=== PATIENT | male | born 1965 | race American Indian/Alaskan Native ===

== ENCOUNTER → 2020-03-05 09:38 | Outpatient (BNVA) | payer OTHER, SELFPAY | PROVIDERS: PCP Internal Medicine; Referring Provider Internal Medicine; Visit Provider Urology | DX: Z76.89 Persons encountering health services in other specified circumstances (principal) ==

== ENCOUNTER → 2020-05-17 08:59 | Outpatient (BNVA) | payer OTHER, SELFPAY | PROVIDERS: PCP Internal Medicine; Referring Provider Internal Medicine; Visit Provider Internal Medicine | DX: E11.65 Type 2 diabetes mellitus with hyperglycemia (principal); E78.5 Hyperlipidemia, unspecified; I10 Essential (primary) hypertension; E55.9 Vitamin D deficiency, unspecified | CPT/HCPCS: 82947; 99212 ==

== ENCOUNTER 2020-05-17 10:44 | Outpatient (REF) | payer OTHER, SELFPAY ==
[2020-05-17 12:22] LABS: Alanine Aminotransferase 28 U/L (0-40); Albumin Level 4.8 g/dL (3.5-5.0); Alkaline Phosphatase 97 U/L (39-117); Anion Gap 17 (12-20); Aspartate Amino Transferase 18 U/L (5-37); Bilirubin Total 0.2 mg/dL (0.0-1.0); Blood Urea Nitrogen 19 mg/dL (9-16); Calcium 9.9 mg/dL (8.4-10.2); Carbon Dioxide 23 mmol/L (22-29); Chloride 107 mmol/L (96-108); Cholesterol 175 mg/dL; Estimated Glomerular Filt Rate > 60; Glucose Random 114 mg/dL (60-115); HDL Cholesterol 40 mg/dL; LDL Cholesterol Calculated 90 mg/dl; Potassium 4.5 mmol/l (3.3-5.1); Sodium 142 mmol/L (135-145); Total Protein 7.2 g/dL (6.5-8.0); Triglycerides 228 mg/dL
[2020-05-17 12:28] LABS: Estimated Average Glucose 117 mg/dL; Hemoglobin A1c % 5.7 %
[2020-05-17 13:04] LABS: Creatinine Urine 94.08 mg/dL; Microalbum/Creatinine Ratio Ur 11.6 ug/mg cr
[2020-05-18 13:32] LABS: LDL Cholesterol Direct 111 mg/dL (<100)
== END 2020-05-17 10:45 | disposition home or self-care (01) ==
LOC: HO.10HDL 10:44
PROVIDERS: Visit Provider Internal Medicine
DX: E11.65 Type 2 diabetes mellitus with hyperglycemia (principal); E55.9 Vitamin D deficiency, unspecified; R12 Heartburn; Z12.11 Encounter for screening for malignant neoplasm of colon; Z23 Encounter for immunization
CPT/HCPCS: 36415; 80053; 80061; 82043; 82306; 83036; 83721

== ENCOUNTER → 2020-06-22 12:24 | Outpatient (BNVA) | payer OTHER, SELFPAY | PROVIDERS: PCP Internal Medicine; Visit Provider Physician Assistant ==

== ENCOUNTER → 2020-08-16 09:15 | Outpatient (BNVA) | payer OTHER, SELFPAY | PROVIDERS: PCP Internal Medicine; Visit Provider Internal Medicine ==

== ENCOUNTER 2021-01-25 08:52 | Outpatient (REF) | payer OTHER, SELFPAY ==
[2021-01-25 12:17] LABS: Alanine Aminotransferase 28 U/L (0-40); Albumin Level 4.2 g/dL (3.5-5.0); Alkaline Phosphatase 106 U/L (39-117); Anion Gap 11 (12-20); Aspartate Amino Transferase 14 U/L (5-37); Bilirubin Total 0.4 mg/dL (0.0-1.0); Blood Urea Nitrogen 17 mg/dL (9-16); Calcium 8.9 mg/dL (8.4-10.2); Carbon Dioxide 25 mmol/L (22-29); Chloride 109 mmol/L (96-108); Cholesterol 131 mg/dL; Estimated Glomerular Filt Rate > 60; Glucose Random 129 mg/dL (60-115); HDL Cholesterol 36 mg/dL; LDL Cholesterol Calculated 56 mg/dl; Potassium 4.2 mmol/L (3.3-5.1); Sodium 141 mmol/L (135-145); Total Protein 6.4 g/dL (6.5-8.0); Triglycerides 195 mg/dL
[2021-01-25 12:19] LABS: Estimated Average Glucose 157 mg/dL; Hemoglobin A1c % 7.1 %
[2021-01-25 12:30] LABS: Creatinine Urine 212.36 mg/dL
[2021-01-25 12:41] LABS: Vitamin D 25-OH Total 38.5 ng/mL (>30)
[2021-01-26 12:16] LABS: LDL Cholesterol Direct 71 mg/dL (<100)
== END 2021-01-25 08:53 | disposition home or self-care (01) ==
LOC: HO.HMGCLDS 08:52
PROVIDERS: PCP Internal Medicine; Visit Provider Internal Medicine
DX: E11.65 Type 2 diabetes mellitus with hyperglycemia (principal); E55.9 Vitamin D deficiency, unspecified
CPT/HCPCS: 36415; 80053; 80061; 82043; 82306; 83036; 83721

== ENCOUNTER → 2022-05-01 09:29 | Outpatient (BNVA) | payer OTHER, SELFPAY | PROVIDERS: PCP Internal Medicine; Visit Provider Internal Medicine | DX: E11.65 Type 2 diabetes mellitus with hyperglycemia (principal); E55.9 Vitamin D deficiency, unspecified; E78.5 Hyperlipidemia, unspecified; I10 Essential (primary) hypertension | CPT/HCPCS: 82947; 83036; 99212 ==

== ENCOUNTER 2022-05-01 10:33 | Outpatient (REF) | payer OTHER, SELFPAY ==
[2022-05-01 13:45] LABS: Estimated Average Glucose 183 mg/dL
[2022-05-01 13:57] LABS: Alanine Aminotransferase 25 U/L (0-40); Albumin Level 4.5 g/dL (3.5-5.0); Alkaline Phosphatase 98 U/L (39-117); Anion Gap 13 (12-20); Aspartate Amino Transferase 20 U/L (5-37); Bilirubin Total 0.6 mg/dL (0.0-1.0); Blood Urea Nitrogen 19 mg/dL (9-16); Calcium 9.7 mg/dL (8.4-10.2); Carbon Dioxide 26 mmol/L (22-29); Chloride 104 mmol/L (96-108); Cholesterol 193 mg/dL; Estimated Glomerular Filt Rate > 60; Glucose Random 152 mg/dL (60-115); HDL Cholesterol 30 mg/dL; Potassium 3.9 mmol/L (3.3-5.1); Sodium 139 mmol/L (135-145); Total Protein 6.8 g/dL (6.5-8.0); Triglycerides 516 mg/dL
[2022-05-01 14:06] LABS: Vitamin D 25-OH Total 26.5 ng/mL (>30)
[2022-05-01 14:14] LABS: Vitamin B12 466 pg/mL (200-900)
[2022-05-01 14:34] LABS: Creatinine Urine 119.18 mg/dL; Microalbum/Creatinine Ratio Ur 18.4 ug/mg cr
[2022-05-03 06:24] LABS: LDL Cholesterol Direct 65 mg/dL (<100)
== END 2022-05-01 10:34 | disposition home or self-care (01) ==
LOC: HO.10HDL 10:33
PROVIDERS: Visit Provider Internal Medicine
DX: E11.9 Type 2 diabetes mellitus without complications (principal); E55.9 Vitamin D deficiency, unspecified
CPT/HCPCS: 36415; 80053; 80061; 82043; 82306; 82607; 83036; 83721

== ENCOUNTER 2022-06-06 09:06 | Outpatient (AMB) | payer OTHER, SELFPAY ==
--- NOTE | 2022-06-06 09:53 | MHC.PC.OV ---
Vital Signs 06/06/22 10:01 Height 5 ft 7 in Weight 183 lb BMI 28.6 BP 120/70 Blood Pressure Location Lt brachial Position Sitting Pulse 72 Pulse Source Pulse Oximeter Pulse Oximetry (%) 98 Oxygen Delivery Method Room Air Intake Visit Reasons: PT Over due for PE Intake Note: Pt is here today for his PE Allergies No Known Allergies Allergy (Verified 08/30/22 08:41) Medication List - Last Reconciled 06/06/22 by Heather Garibay MD aspirin 1 tab PO DAILY atenolol 50 mg PO DAILY atorvastatin 80 mg PO BEDTIME 30 days bisacodyl (Dulcolax (bisacodyl)) 10 mg (2 x 5 mg) PO ONCE 1 day dulaglutide (Trulicity) 0.75 mg (0.5 mL) subcut QWEEK 30 days empagliflozin (Jardiance) 10 mg PO DAILY 30 days flash glucose scanning reader (FreeStyle Rakan 2 [place]) As directed flash glucose sensor (FreeStyle Rakan 2 Sensor kit) Once every 14 days gabapentin 800 mg PO TID losartan 50 mg PO DAILY 90 days metformin 1,000 mg PO BID 90 days nicotine 1 patch transdermal Q24H 28 days omeprazole 20 mg PO DAILY pen needle, diabetic As directed pen needle, diabetic (BD Ultra-Fine Suad Pen Needle) 1 ea miscellaneous DAILY 90 days Tobacco use date assessed: 06/06/22 HPI HPI Comments History of Present Illness Details 57-year-old male with diabetes mellitus, GERD, hypertension, dyslipidemia, history of nephrolithiasis, here today for?physical exam. He is currently being followed at endocrine clinic for his diabetes mellitus, with latest hemoglobin A1c at 7.6%. He is overdue for his diabetes retinopathy screening, with referral already ordered by his social sciences instructor. He has had 1 COVID vaccine but does not want to get any further vaccinations , overdue to get his flu shot, and refuses pneumococcal vaccination.. He is also overdue for screening colonoscopy [facility] Medical History Cigarette smoker Diabetes mellitus with diabetic neuropathy Diabetes type 2, uncontrolled Heartburn HLD (hyperlipidemia) HTN (hypertension) T2DM (type 2 diabetes mellitus) Vitamin D deficiency Surgical History Hx of colonoscopy Family History Father Diabetes mellitus Mother HTN (hypertension) Social History Household Members: Children Housing: Apartment Alcohol intake: current Alcohol intake frequency: holidays/special occasions only Patient Tobacco Use Status: Current someday Tobacco user Cigarettes Per Day: 3 e-Cigarette/Vaping Use: Never Used Current occupational status: unemployed Cognitive needs: No Hearing needs: No Vision needs: No Questionnaire PHQ-9 Over the last 2 weeks, how often have you been bothered by any of the following problems? 1. Little interest or pleasure in doing things: not at all 2. Feeling down, depressed, or hopeless: not at all 3. Trouble falling or staying asleep, or sleeping too much: several days 4. Feeling tired or having little energy: several days 5. Poor appetite or overeating: several days 6. Feeling bad about yourself - or that you are a failure or have let yourself or your family down: not at all 7. Trouble concentrating on things, such as reading the newspaper or watching television: several days 8. Moving or speaking so slowly that other people could have noticed. Or the opposite - being so fidgety or restless that you have been moving around a lot more than usual: not at all 9. Thoughts that you would be better off or of hurting yourself in some way: not at all Total score: 4 Depression Screening Interpretation: Negative 14471 - PHQ-9 Billing: Yes Source: Developed by Drs. Lucio Avilez, Sofie Andrews, Vishal Evangelista and colleagues, with an educational padmini from [employer]. Thrive Questionnaire Date Thrive assessed: 06/06/22 I am a: Patient What is your living situation today?: I do not have a steady places to live Within the past 12 months, did the food you bought not last and you didn't have the money to get more?: Sometimes True Within the past 12 months, did you worry whether your food would run out before you got money to buy more?: Sometimes True Do you have trouble paying for medicines?: Yes Do you have trouble getting transportation to medical appointments?: Yes Do you have trouble paying your heating and electricity bill?: No Do you have trouble taking care of your child, family member or friend?: No Do you have trouble with day-to-day activities such as bathing, preparing meals, shopping, managing finances, etc.?: No Are you currently unemployed and looking for a job?: No Are you interested in more education?: No AUDIT C Alcohol Use Questionnaire (AUDIT-C) 1. How often do you have a drink containing alcohol?: Monthly or less 2. How many drinks containing alcohol do you have on a typical day when you are drinking?: 1 or 2 3. How often do you have six or more drinks on one occasion?: Never Total Score: 1 MIKA-7 AMB Questionnaire MIKA-7 Date MIKA - 7 assessed: 06/06/22 Feeling nervous, anxious, or on edge: 1 = Several days Not being able to stop or control worryin = Not at all Worrying too much about different things: 1 = Several days Trouble relaxin = Not at all Being so restless that it is hard to sit still: 0 = Not at all Becoming easily annoyed or irritable: 1 = Several days Feeling afraid as if something awful might happen: 1 = Several days Total MIKA-7 score (0-4 normal; 5-9 mild; 10-14 moderate; 15-21 severe): 4 Source: Developed by Drs. Lucio Avilez, Sofie Andrews, Vishal Evangelista and colleagues, with an educational padmini from [employer]. MIKA-7 Assessment Billing MIKA-7 Assessment Tool: MIKA-7 Assessment 53029 Review of Systems Const Denies body aches, Denies headache(s), Denies stops breathing during sleep, Denies weight gain and Denies weight loss Eyes Denies blurry vision and Denies diplopia ENT Denies change in voice, Denies dysphagia, Denies headache(s) and Denies hoarseness Card Denies chest pain, Denies irregular heart rhythm, Denies palpitations, Denies dyspnea and Reports other Resp Denies cough and Denies dyspnea GI Denies abdominal pain, Denies change in bowel habits, Denies dysphagia, Denies diarrhea and Denies nausea Denies hematuria, Denies genital lesions, Denies dysuria, Denies nocturia, Denies penile discharge, Denies testicular pain and Denies urinary frequency Musc Denies myalgias, Denies muscle cramps and Denies numbness Skin/Breast Denies bleeding lesions, Denies breast swelling, Denies breast pain, Denies breast mass, Denies hirsutism, Denies alopecia and Denies rash Neuro Denies headache(s), Denies numbness and Reports paresthesias (Both feet) Psych Denies anxiety and Denies depression Endo Denies cold intolerance, Denies heat intolerance, Denies polyuria, Denies palpitations and Denies other [place]/Lymph Denies easy bruising Aller/Immun Reports no additional complaints Physical exam (Primary Care) Vital Signs: Last Vital Signs Pulse 72 06/06/22 10:01 BP 120/70 06/06/22 10:01 Pulse Ox 98 06/06/22 10:01 Oxygen Delivery Method Room Air 06/06/22 10:01 BMI result Body Mass Index 28.6 Tobacco/Smoking Status: Tobacco use Status Tobacco use date assessed 06/06/22 06/06/22 09:53 Patient Tobacco Use Status Current someday Tobacco 06/06/22 09:53 e-Cigarette/Vaping Use Never Used 06/06/22 09:53 Are you ready to quit: No Tobacco cessation counseling provided: Yes PHQ-9: PHQ-9 Score PHQ-9: Total score 6 08/24/22 14:53 Depression Screening Interpretation: Negative Thrive Assessment: Date of Thrive Assessment Date Thrive assessed 06/06/22 06/06/22 10:04 Const General: cooperative, comfortable and no acute distress Nutritional Appearance: obese Orientation/consciousness: patient oriented x3 Limitations: no limitations [facility] General nose exam: Normal external nose present Mouth: Normal oral and palatal mucosa present, oropharynx normal and moist mucous membranes Eyes General: appearance normal, both eyes and all related structures Conjunctivae: conjunctivae normal Pupils: Equal, round and reactive pupils present EOM: EOMs intact bilaterally Neck Neck: Yes full ROM, Yes no lymphadenopathy and Yes supple Resp Effort & Inspection: normal respiratory effort and able to speak in complete sentences Auscultation: clear to auscultation bilaterally Cardio Rate: regular rate Rhythm: regular rhythm Heart sounds: S1 normal heart sound present and S2 normal heart sound present GI Inspection: Yes normal to inspection Palpation (GI): Soft to palpation, nontender and no masses Auscultation: normal bowel sounds General: Yes no CVA tenderness Male General Exam: Yes normal external exam Penis: normal penis and uncircumcised Meatus: meatus normal Scrotum: scrotum normal, testes descended bilaterally, no inguinal hernias, no masses and no scrotal swelling Testes: Testes normal Back/Spine/Pelvis Back: no CVA tenderness Skin General skin exam: no rashes or lesions noted Neuro General: patient oriented x3, gait normal, tone normal, moves all extremities, Normal light touch and pain sensation and no focal motor deficits Cranial nerves: Yes Equal, round and reactive pupils present Cognition (Neuro): normal cognition Gait exam (Neuro): Normal gait present Motor exam (neuro): 5/5 motor strength present throughout Extrem General: Yes full ROM, Yes no joint enlargement, Yes no pedal edema, Yes no calf tenderness and Yes normal gait Psych Appearance: grossly normal and well kempt Mental Status: mental status grossly normal Speech and movement: Normal speech and movement present Affect: normal affect Office Procedures Flu Questionnaire Does the patient have a severe egg allergy?: No Does the patient have severe life threatening allergies?: No Does the patient have a fever or illness today?: No Has the patient ever had Guillain-[place] Syndrome?: No Has the patient ever had any past reaction to a flu shot?: No Immunizations flu vacc [id number] 6mos up(PF) Performing Provider: Heather Garibay MD Administered by: Edelmira Sandoval CMA on 06/06/22 10:13 Dose Route Admin Location Lot Number Expiration Date NDC Ux Researcher 0.5 mL IM Left Deltoid [id number] 10/20/22 [id number] Kalibrr VIS Given Date VIS Provided VIS Publication Date 06/06/22 Single Vaccine 20 Eligibility Eligibility Date Funding Source Not [facility] Eligible 06/06/22 Private Results Reviewed Results Reviewed: ENTERED: 05/01/22-1034 OTHR [place]: ORDERED: CMP, Lipid Panel, Vitamin D 25-OH Test Result Flag Reference Site Sodium 139 135-145 mmol/L Potassium 3.9 3.3-5.1 mmol/L CL 104 96-108 mmol/L CO2 26 22-29 mmol/L Gap 13 12-20 BUN 19 H 9-16 mg/dL Creat 0.90 0.5-1.4 mg/dL EGFR > 60 NOTE: For -[place] individuals, multiply the result by 1.210. Chronic Kidney Disease: Estimated GFR < 60 mL/min/1.73m2 Severe Kidney Disease: Estimated GFR < 15 mL/min/1.73m2 Glucose, Random 152 H 60-115 mg/dL CA 9.7 # 8.4-10.2 mg/dL Total Bili 0.6 0.0-1.0 mg/dL AST (GOT) 20 5-37 U/L ALT (GPT) 25 0-40 U/L Protein, Total 6.8 6.5-8.0 g/dL Alb 4.5 3.5-5.0 g/dL Triglyceride 516 mg/dL Desirable Triglyceride: less than 150 mg/dL Borderline High Triglyceride 150-199 mg/dL High Triglyceride: 200-499 mg/dL Very High Triglyceride: greater than or equal to 5OO mg/dL Chol 193 mg/dL Desirable Cholesterol: less than 200 mg/dL Borderline High Cholesterol: 200-239 mg/dL High Cholesterol: greater than 239 mg/dL LDL Calculated Test not performed mg/dl Unable to calculate the LDL. The formula of Friedwald, Paulino, and Vin is only valid if the triglycerides are less than 400 mg/dl. HDL 30 mg/dL Desirable HDL: greater than 40 mg/dL Note: This HDL assay may give artificially low results in patients with liver disease. Alk Phos 98 39-117 U/L Vit D 25-OH Tot 26.5 >30 ng/mL Assessment and Plan Assessment & Plan (1) Annual visit for general adult medical examination with abnormal findings: Code(s): Z00.01 - Encounter for general adult medical examination with abnormal findings Plan: Recent lab results reviewed with patient. Recommended dental visit every 6 months and regular eye exams, for diabetes eye retinopathy screening year. Take adequate calcium in diet and vitamin-D 3 at 2000 IU per cap once a day, in addition to weight-bearing exercises to help maintain good muscle tone and weight control. Instructed to do self\testicular exam check for any mass Yearly flu vaccine given today, recommended to get shingles vaccine and pneumococcal vaccination but patient refused. Colonoscopy ordered. (2) Colon cancer screening: Code(s): Z12.11 - Encounter for screening for malignant neoplasm of colon Plan: GI consult obtained for his screening colonoscopy (3) Diabetes mellitus with diabetic neuropathy: Code(s): E11.40 - Type 2 diabetes mellitus with diabetic neuropathy, unspecified Plan: Currently on metformin, dulaglutide (4) HLD (hyperlipidemia): Code(s): E78.5 - Hyperlipidemia, unspecified Qualifiers: Hyperlipidemia type: unspecified Qualified Code(s): E78.5 - Hyperlipidemia, unspecified Plan: Reviewed recent fasting lipid profile with patient with markedly elevated triglycerides . Continue with atorvastatin 80 mg daily at bedtime , in addition to adherence to low-cholesterol diet and regular exercise, at least 30 minutes 3 to 4 times a week. Advised patient to make healthy food choices, eat more fruits, vegetables, whole grains, wild caught fish and low-fat dairy. Limit amount of meat and fried or fatty food products, as well as processed foods and fast foods. Follow-up scheduled with repeat fasting lipid panel in months. (5) HTN (hypertension): Code(s): I10 - Essential (primary) hypertension Qualifiers: Hypertension type: unspecified Qualified Code(s): I10 - Essential (primary) hypertension Plan: Blood pressure at goal of less than 130/80. Continue with current medication. Reinforced importance of following a low sodium diet, getting regular exercise, and lowering stress levels. (6) Nephrolithiasis: Code(s): N20.0 - Calculus of kidney Plan: Currently asymptomatic, being followed by Urology Orders: Orders Influenza [id number] Immunization 06/06/22 Z23 - Encounter for immunization Referrals Gastroenterology Referral Z12.11 - Encounter for screening for malignant neoplasm of colon Medications: Refilled gabapentin 800 mg PO TID 90 tabs 2RF E11.40 - Type 2 diabetes mellitus with diabetic neuropathy, unspecified Coding Level of Care Code Est Pt Prev Care 40-64y(05890) Diagnoses Annual visit for general adult medical examination with abnormal findings Z00.01 Colon cancer screening Z12.11 Diabetes mellitus with diabetic neuropathy E11.40 HLD (hyperlipidemia) E78.5 Hyperlipidemia type: unspecified HTN (hypertension) I10 Hypertension type: unspecified Nephrolithiasis N20.0 Additional Codes MIKA-7 Assessment Billing - MIKA-7 Assessment Tool: MIKA-7 Assessment 10775 ([id number])
[2022-06-06 10:01] VITALS: BP 120/70; PULSE 72; O2SAT 98; BMI 28.6
== END 2022-06-06 10:34 | disposition home or self-care (01) ==
LOC: HO.HMGC 09:06
PROVIDERS: PCP Internal Medicine; Visit Provider Internal Medicine
DX: Z00.01 Encounter for general adult medical examination with abnormal findings (principal); E11.40 Type 2 diabetes mellitus with diabetic neuropathy, unspecified; I10 Essential (primary) hypertension; Z12.11 Encounter for screening for malignant neoplasm of colon; E78.5 Hyperlipidemia, unspecified; N20.0 Calculus of kidney
CPT/HCPCS: 90471; 90686; 99396

== ENCOUNTER → 2022-08-30 08:33 | Outpatient (BNVA) | payer OTHER, SELFPAY | PROVIDERS: PCP Internal Medicine; Visit Provider Physician Assistant | DX: R12 Heartburn (principal); Z98.890 Other specified postprocedural states | CPT/HCPCS: 99212 ==

== ENCOUNTER 2023-06-27 07:48 | Outpatient (REF) | payer OTHER, SELFPAY ==
[2023-06-27 12:13] LABS: Creatinine Urine 106.73 mg/dL; Microalbum/Creatinine Ratio Ur 17.8 ug/mg cr (<30)
[2023-06-27 12:55] LABS: Anion Gap 10 (12-20)
[2023-06-27 13:02] LABS: Blood Urea Nitrogen 18 mg/dL (9-16); Calcium 9.4 mg/dL (8.4-10.2); Carbon Dioxide 29 mmol/L (22-29); Chloride 106 mmol/L (96-108); Cholesterol 136 mg/dL (<200); Estimated Glomerular Filt Rate > 60; Glucose Random 140 mg/dL (60-115); HDL Cholesterol 45 mg/dL (>40); LDL Cholesterol Calculated 67 mg/dL (<100); Potassium 4.1 mmol/L (3.3-5.1); Sodium 141 mmol/L (135-145); Triglycerides 124 mg/dL (<150)
== END 2023-06-27 07:49 | disposition home or self-care (01) ==
LOC: HO.HMGCLDS 07:48
PROVIDERS: PCP Internal Medicine; Visit Provider Internal Medicine Endocrinology, Diabetes & Metabolism
DX: E11.65 Type 2 diabetes mellitus with hyperglycemia (principal)
CPT/HCPCS: 36415; 80048; 80061; 82043; 82570

== ENCOUNTER 2023-06-27 08:05 | Outpatient (AMB) | payer OTHER, SELFPAY ==
[2023-06-27 08:20] VITALS: BP 108/66; PULSE 77; O2SAT 94; BMI 28.2
--- NOTE | 2023-06-27 08:20 | MHC.OFFWIV ---
Intake Vital Signs 06/27/23 08:20 Height 5 ft 7 in Weight 180 lb BMI 28.2 BP 108/66 Blood Pressure Location Lt brachial Position Sitting Pulse 77 Pulse Source Pulse Oximeter Pulse Oximetry (%) 94 Oxygen Delivery Method Room Air Intake Visit Reasons: EST/pain in legs/feet(lobby masked) Intake Note: Pt is here today for a walk in visit. Pt c/o R knee pain for 1 week. Patient Tobacco Use Status: Current someday Tobacco user Allergies No Known Allergies Allergy (Verified 06/27/23 08:23) Do you need a note to return to daycare/school/sports/work: No HPI HPI Comments History of Present Illness Details 57 y/o male patient who presents to walk in clinic with c/o right knee pain x 1 week. This is a chronic ongoing issue. He has been taking NSAIDs and Gabapentin with no relief. [facility] Medical History Cigarette smoker Diabetes mellitus with diabetic neuropathy Heartburn Vitamin D deficiency HLD (hyperlipidemia) HTN (hypertension) T2DM (type 2 diabetes mellitus) Diabetes type 2, uncontrolled Surgical History Hx of colonoscopy Family History Father Diabetes mellitus Mother HTN (hypertension) Social History Household Members: Children Housing: Apartment Alcohol intake: current Alcohol intake frequency: holidays/special occasions only Patient Tobacco Use Status: Current someday Tobacco user Cigarettes Per Day: 3 e-Cigarette/Vaping Use: Never Used Current occupational status: unemployed Cognitive needs: No Hearing needs: No Vision needs: No Review of Systems Const All systems reviewed & are unremarkable except as noted in HPI and below Physical Exam Vital Signs: Last Vital Signs Pulse 77 06/27/23 08:20 BP 108/66 06/27/23 08:20 Pulse Ox 94 06/27/23 08:20 Oxygen Delivery Method Room Air 06/27/23 08:20 BMI result Body Mass Index 28.2 Const Orientation/consciousness: patient oriented x3 Neuro General: patient oriented x3 and no focal motor deficits Gait exam (Neuro): Normal gait present Motor exam (neuro): 5/5 motor strength present throughout Extrem Right lower extremity: knee Details: normal to inspection and normal ROM; no tenderness, no swelling and no unusual warmth; no edema Left lower extremity: knee Details: normal to inspection and normal ROM; no tenderness and no swelling Psych Speech and movement: Clear speech present Attitude: cooperative Assessment & Plan Assessment & Plan (1) Osteoarthritis of right knee: Code(s): M17.11 - Unilateral primary osteoarthritis, right knee Qualifiers: Osteoarthritis type: unspecified Qualified Code(s): M17.11 - Unilateral primary osteoarthritis, right knee Plan: - Wrapped Knee with an Justin wrap. - F/u with PCP - RICE -Take medicine as prescribed. Medications: New acetaminophen 1,000 mg (2 x 500 mg) PO Q6H PRN 30 caps 0RF pain M17.11 - Unilateral primary osteoarthritis, right knee celecoxib 100 mg PO BID 30 caps 0RF M17.11 - Unilateral primary osteoarthritis, right knee Coding Level of Care Code Est Pt Level 3 (47716) Diagnoses Osteoarthritis of right knee, unspecified osteoarthritis type M17.11 Osteoarthritis type: unspecified Time Spent (min) 15
== END 2023-06-27 08:39 | disposition home or self-care (01) ==
PROVIDERS: PCP Internal Medicine; Visit Provider Nurse Practitioner Family
DX: M17.11 Unilateral primary osteoarthritis, right knee (principal)
CPT/HCPCS: 99213

== ENCOUNTER 2023-09-12 10:47 | Outpatient (AMB) | payer OTHER, SELFPAY ==
[2023-09-12 10:49] VITALS: BP 142/84; PULSE 90; BMI 30.8
--- NOTE | 2023-09-12 10:49 | A.OFFVIS_ITS ---
Vital Signs 09/12/23 10:49 Height 5 ft 7 in Weight 196 lb 13.965 oz BMI 30.8 BP 142/84 H Blood Pressure Location Lt brachial Position Sitting Pulse 90 Pulse Source Pulse Oximeter Intake Visit Reasons: F/U [id number] Intake Note: Patient presents today to follow up on D2MT. Patient was last seen by Dr. Baum on 05/01/22. Last Diabetic Eye exam: About 3 years afo. Last Podiatry Visit:Doesn't have one. Random Glucose: 249 mg/dl HgA1c: 8.5% Electromechanical Technologist Required: Yes Electromechanical Technologist Language: Chemical Recovery Operator Name: Amber Information Interpreted: non-clinical & clinical Accompanied by: Daughter Allergies No Known Allergies Allergy (Verified 09/12/23 10:57) Medication List - Last Reconciled 09/12/23 by Lucio Jones MD acetaminophen 1,000 mg (2 x 500 mg) PO Q6H PRN aspirin 1 tab PO DAILY atenolol 50 mg PO DAILY atorvastatin 80 mg PO BEDTIME 30 days bisacodyl (Dulcolax (bisacodyl)) 10 mg (2 x 5 mg) PO ONCE 1 day celecoxib 100 mg PO BID dulaglutide (Trulicity) 0.75 mg (0.5 mL) subcut QWEEK empagliflozin (Jardiance) 10 mg PO DAILY 30 days flash glucose scanning reader (FreeStyle Rakan 2 [place]) As directed flash glucose sensor (FreeStyle Rakan 2 Sensor kit) Once every 14 days gabapentin 800 mg PO TID losartan 50 mg PO DAILY 90 days metformin 1,000 mg PO BID 90 days nicotine 1 patch transdermal Q24H 28 days omeprazole 20 mg PO DAILY pen needle, diabetic As directed pen needle, diabetic (BD Ultra-Fine Suad Pen Needle) 1 ea miscellaneous DAILY 90 days polyethylene glycol 3350 (Miralax) 238 grams PO ONCE 1 day HPI Comments Details: 58 YO M with PMHx T2DM, HTN, HLD who is seen in F/U for T2DM. . Patient last saw Dr. Baum on 05/01/2022 Initially diagnosed with T2DM in 2011 when he presented with DKA/HHS. Was initially started on treatment with insulin at the time of diagnosis. He had remained on once daily insulin ever since until our initial visit at which time he was noted to be having frequent, daily am low sugars. His insulin was stopped at that time and he was switched to his current regimen below. Current regimen Metformin 1000 mg PO BID and Trulicity 0.75 mg Qwkly Jardiance 10 mg PO daily not taking He stopped his Victoza of his own accord, but had been tolerating this well. Uses 3Scane CGM. Unfortunately, there is no recent sensor data or meter or log book Denies any low sugars, but does report hyperglycemia into the 250's the past few weeks. Family history of T2DM in his Father and Brother. Has eyes checked yearly, last eye exam 2 yrs a go has retinopathy. Has not had his eye exam this year, but has been referred. Has Neuropathy, does not see podiatry. Uses lyrica. No Nephropathy, on Losartan 25 mg PO daily. UAC 15 01/25/2021. Has not repeated labs since. Has HLD, on Atorvastatin 40 mg PO qHS. LDL 71 01/25/2021. Has not repeated labs since. Has Angina, unclear if CAD. Diet: Eats 3 meals and frequently overnight as he is afraid of low sugar. Weight: Unchanged. Had CDE. At his last visit I discussed with him the importance of repeating labs, but he again failed to do so. Labs: Laboratory Tests 01/25/21 01/25/21 01/25/21 09:00 09:00 09:00 Sodium 141 Potassium 4.2 Creatinine 0.83 Estimated GFR > 60 Hemoglobin A1c % 7.1 LDL Cholesterol Direct 71 25-OH Vitamin D Total 38.5 Microalb/Creat Ratio 01/25/21 09:00 Sodium Potassium Creatinine Estimated GFR Hemoglobin A1c % LDL Cholesterol Direct 25-OH Vitamin D Total Microalb/Creat Ratio 15.0 [facility] Medical History Cigarette smoker Diabetes mellitus with diabetic neuropathy Heartburn Vitamin D deficiency HLD (hyperlipidemia) HTN (hypertension) T2DM (type 2 diabetes mellitus) Diabetes type 2, uncontrolled Surgical History Hx of colonoscopy Family History Father Diabetes mellitus Mother HTN (hypertension) Social History Household Members: Children Housing: Apartment Alcohol intake: current Alcohol intake frequency: holidays/special occasions only Patient Tobacco Use Status: Current someday Tobacco user Cigarettes Per Day: 3 e-Cigarette/Vaping Use: Never Used Current occupational status: unemployed Cognitive needs: No Hearing needs: No Vision needs: No Physical Exam Absence of Cushingoid features. Absence of acromegalic features. Neck exam reveals nl size thyroid about 15 gms. No thyroid nodules palpable. No carotid bruits present. Lungs CTA. Heart S1 S2, Reg R/R. No M/R/ G. Skin exam reveals absence of vitiligo or acanthosis nigricans. Abdominal exam reveals Soft NT/ND with NA BS. No organomegaly present. Neck Other: . Extrem Other: Visual exam of foot performed. No ulcerations or open lesions. No onchomycosis, no callouses.Pulses 2 + distally Sensation intact to monofilament exam. Vibratory sensation sensed is decreased with 128 Hz tuning fork Results AMB Hemoglobin A1c AMB Hemoglobin A1c 8.5 % Last Edit by ASHLEIGH Sepulveda on 09/12/23 11:12 Assessment & Plan Assessment & Plan (1) T2DM (type 2 diabetes mellitus): Code(s): E11.9 - Type 2 diabetes mellitus without complications Category: Medical Qualifiers: Diabetes mellitus skidder driver insulin use: without senior care use Diabetes mellitus complication status: with hyperglycemia Qualified Code(s): E11.65 - Type 2 diabetes mellitus with hyperglycemia Plan: This 58-year-old male with history of type 2 diabetes being treated with metformin and Jardiance with poor glycemic control and known microvascular namely neuropathy and retinopathy. Plan is to reinitiate the Jardiance 10 mg and to increase the Trulicity to 1.5 mg Q weekly. We will also reinitiate Rakan 2. Will have patient see certify insurance job titles and grocery supervisor. Would over correlation of poor glycemic control to development and progression of complications with patient and daughter with the help of a physician practice consultant Orders: Orders AMB Hemoglobin A1c Today E11.65 - Type 2 diabetes mellitus with hyperglycemia, Z13.9 - Encounter for screening, unspecified Referrals Nutrition/Dietitian Referral E11.65 - Type 2 diabetes mellitus with hyperglycemia Diabetes Education Referral E11.65 - Type 2 diabetes mellitus with hyperglycemia Medications: New dulaglutide (Trulicity) 1.5 mg (0.5 mL) subcut QWEEK 2 mL 4RF Refilled 2 flash glucose sensor (FreeStyle Rakan 2 Sensor kit) Once every 14 days 2 ea 11RF E55.9 - Vitamin D deficiency, unspecified empagliflozin (Jardiance) 10 mg PO DAILY 30 days 30 tabs 11RF E11.65 - Type 2 diabetes mellitus with hyperglycemia Discontinued dulaglutide (Trulicity) Discontinued Reason: Doctor's Order 0.75 mg (0.5 mL) subcut QWEEK 2 mL 5RF E11.65 - Type 2 diabetes mellitus with hyperglycemia Coding Level of Care Code Est Pt Level 4 (45014) Diagnoses Type 2 diabetes mellitus with hyperglycemia, without long-term current use of insulin E11.65 Diabetes mellitus senior care insulin use: without skidder driver use Diabetes mellitus complication status: with hyperglycemia
[2023-09-12 11:05] LABS: Glucose, Whole Blood 249 mg/dL (60-115)
== END 2023-09-12 11:24 | disposition home or self-care (01) ==
PROVIDERS: PCP Internal Medicine; Visit Provider Internal Medicine Endocrinology, Diabetes & Metabolism
DX: Z13.9 Encounter for screening, unspecified (principal); E11.65 Type 2 diabetes mellitus with hyperglycemia
CPT/HCPCS: 99214

== ENCOUNTER → 2023-09-12 10:47 | Outpatient (BNVA) | payer OTHER, SELFPAY | PROVIDERS: PCP Internal Medicine; Visit Provider Internal Medicine Endocrinology, Diabetes & Metabolism | DX: E11.65 Type 2 diabetes mellitus with hyperglycemia (principal); E11.40 Type 2 diabetes mellitus with diabetic neuropathy, unspecified; E78.5 Hyperlipidemia, unspecified; Z79.85 Long-term (current) use of injectable non-insulin antidiabetic drugs; Z79.84 Long term (current) use of oral hypoglycemic drugs | CPT/HCPCS: 82947; 83036; 99212 ==

== ENCOUNTER 2023-09-25 11:19 | Outpatient (AMB) | payer OTHER, SELFPAY ==
[2023-09-25 11:33] VITALS: BMI 30.2
--- NOTE | 2023-09-25 11:33 | A.OFFVIS_ITS ---
VS Expanded 09/25/23 11:33 09/26/23 12:15 Height 5 ft 7 in 5 ft 7 in Weight 193 lb 1.999 oz 193 lb BMI 30.2 30.2 Intake Visit Reasons: f/u Type 2 DM Allergies No Known Allergies Allergy (Verified 09/12/23 10:57) Nutrition Presentation Details: Pt presents for MNT for T2DM. The Pt was referred by Dr. Jones Pt presents with daughter who helps with meal preparation Typical meal intake B:eggs/sausage cracker and coffee l/d: rice/beans/chicken d/l: root veg, rice, beef/pork midnight: soda, rice/mario smokes: + ETOH---- food frequency fruit: 0-1/d veg: starchy veg daily dairy: 1 serving/d fish: once/wk starches > 25 serving/d beverages:reg soda/juices/coffee BS Monitoring Most Recent Diabetes Results: Microalb/Creat Ratio 17.8 ug/mg cr (<30) 06/27/23 Cholesterol 136 mg/dL (<200) 06/27/23 HDL Cholesterol 45 mg/dL (>40) 06/27/23 Triglycerides 124 mg/dL (<150) 06/27/23 Creatinine 0.85 mg/dL (0.5-1.4) 06/27/23 Blood Urea Nitrogen 18 mg/dL (9-16) H 06/27/23 Sodium 141 mmol/L (135-145) 06/27/23 Potassium 4.1 mmol/L (3.3-5.1) 06/27/23 Chloride 106 mmol/L (96-108) 06/27/23 Carbon Dioxide 29 mmol/L (22-29) 06/27/23 Calcium 9.4 mg/dL (8.4-10.2) 06/27/23 AST 20 U/L (5-37) 05/01/22 ALT 25 U/L (0-40) 05/01/22 Total Protein 6.8 g/dL (6.5-8.0) 05/01/22 Albumin 4.5 g/dL (3.5-5.0) 05/01/22 EOA-Ceqdfqi-Jg.Jeor Equation Height: 5 ft 7 in Weight: 193 lb Resting Metabolic Rate: 1662.74 Calculated Activity Level: Mild Activity Calories Needed to Maintain Weight: 2286.27 [facility] Medical History Cigarette smoker Diabetes mellitus with diabetic neuropathy Heartburn Vitamin D deficiency HLD (hyperlipidemia) HTN (hypertension) T2DM (type 2 diabetes mellitus) Diabetes type 2, uncontrolled Surgical History Hx of colonoscopy Family History Father Diabetes mellitus Mother HTN (hypertension) Social History Household Members: Children Housing: Apartment Alcohol intake: current Alcohol intake frequency: holidays/special occasions only Patient Tobacco Use Status: Current someday Tobacco user Cigarettes Per Day: 3 e-Cigarette/Vaping Use: Never Used Current occupational status: unemployed Cognitive needs: No Hearing needs: No Vision needs: No Assessment & Plan Assessment & Plan (1) Diabetes type 2, uncontrolled: Code(s): E11.65 - Type 2 diabetes mellitus with hyperglycemia Category: Medical Plan: Wt: 88 Kg ( 09/2023 ) Est kcal needs as per MSJ: 2300 (40% carb, 30% protein/fat) Est fluid needs as per 25-30 ml/d: 2600 Est prot per day as per 1 g/kg bw: 88 Recommend fiber intake : 8-10 g per day and gradually increase to 25-28 g per day for women and 35-38 g for men or as tolerated Recommend sodium intake per day : less than 2000 mg Educated patient on: ( R = reviewed V = verbalizes understanding N/R = needs review N/A = not applicable * Food sources of carbohydrate, adequate serving sizes and its role in various health conditions: R * Differences between complex carbohydrates a simple carbohydrates, role of fiber in diet: R * Lean protein sources of foods: R * Differences between types of fats and role in diet (mono on saturated fat fatty acids, saturated fatty acids, trans fats): R V N/R * Food sources of sodium in salt and healthy modifications for heart health in kidney health: R V R/V * Vitamins and minerals: R V N/R * Healthy plate method concept: R V N/R * Physical activity: Benefits a precaution: R V N/R * Hypoglycemia protocol (rule of 15): R V N/R * Dietary prevention of Hyperglycemia: R Patient Instructions: Reduce sugars from beverages, drink water , herb/fruit flavor infused water instead follow healthy plate method at dinner , reducing total carb to less than 80g monitor your blood sugar as prescribed by your doctor Coding Level of Care Code Nutr Indiv Intake (30538) Diagnoses Diabetes type 2, uncontrolled E11.65 Time Spent (min) 30
[2023-09-26 12:15] VITALS: BMI 30.2
== END 2023-09-25 12:04 | disposition home or self-care (01) ==
PROVIDERS: PCP Internal Medicine; Visit Provider Dietitian, Registered
DX: E11.65 Type 2 diabetes mellitus with hyperglycemia (principal)

== ENCOUNTER → 2023-09-25 11:19 | Outpatient (BNVA) | payer OTHER, SELFPAY | PROVIDERS: PCP Internal Medicine; Visit Provider Dietitian, Registered | DX: E11.65 Type 2 diabetes mellitus with hyperglycemia (principal); Z71.3 Dietary counseling and surveillance | CPT/HCPCS: 97802 ==

== ENCOUNTER 2023-09-26 12:23 | Outpatient (AMB) | payer OTHER, SELFPAY ==
--- NOTE | 2023-09-26 13:32 | MHC.AMDMED ---
Intake Intake Visit Reasons: f/u Type 2 DM Final Assembly And Packing Supervisor Required: Yes Final Assembly And Packing Supervisor Language: Assistant Casino Shift Manager Name: Maritza [facility] [place] [facility] [place] Information Interpreted: non-clinical & clinical Accompanied by: Daughter Allergies No Known Allergies Allergy (Verified 09/12/23 10:57) HPI Comprehensive Diabetes Asmnt Most Recent Diabetes Results: Microalb/Creat Ratio 17.8 ug/mg cr (<30) 06/27/23 Cholesterol 136 mg/dL (<200) 06/27/23 HDL Cholesterol 45 mg/dL (>40) 06/27/23 Triglycerides 124 mg/dL (<150) 06/27/23 Creatinine 0.85 mg/dL (0.5-1.4) 06/27/23 Blood Urea Nitrogen 18 mg/dL (9-16) H 06/27/23 Sodium 141 mmol/L (135-145) 06/27/23 Potassium 4.1 mmol/L (3.3-5.1) 06/27/23 Chloride 106 mmol/L (96-108) 06/27/23 Carbon Dioxide 29 mmol/L (22-29) 06/27/23 Calcium 9.4 mg/dL (8.4-10.2) 06/27/23 AST 20 U/L (5-37) 05/01/22 ALT 25 U/L (0-40) 05/01/22 Total Protein 6.8 g/dL (6.5-8.0) 05/01/22 Albumin 4.5 g/dL (3.5-5.0) 05/01/22 [facility] Medical History Cigarette smoker Diabetes mellitus with diabetic neuropathy Heartburn Vitamin D deficiency HLD (hyperlipidemia) HTN (hypertension) T2DM (type 2 diabetes mellitus) Diabetes type 2, uncontrolled Surgical History Hx of colonoscopy Family History Father Diabetes mellitus Mother HTN (hypertension) Social History Household Members: Children Housing: Apartment Alcohol intake: current Alcohol intake frequency: holidays/special occasions only Patient Tobacco Use Status: Current someday Tobacco user Cigarettes Per Day: 3 e-Cigarette/Vaping Use: Never Used Current occupational status: unemployed Cognitive needs: No Hearing needs: No Vision needs: No Assessment & Plan Assessment & Plan (1) Diabetes type 2, uncontrolled: Code(s): E11.65 - Type 2 diabetes mellitus with hyperglycemia Plan: Learning objectives: The patient was provided with verbal and written education on the following topics as outlined below. The patient met all learning objectives and was able to verbalize understanding and provide teach back of education topics discussed . The patient was provided with the opportunity to ask questions and all questions were answered. Patient Assessment Assess patient education level/literacy/barriers, patient could identify foods on carbohydrate list Patient questions/concerns, patient's last A1c was 8.5 in 08/2023, patient was asked to restart Trulicity 1.5 mg, and Jardiance 10 mg. We were unable to review glucose, cause patient has not been checking glucose and has not picked up glucose sensors. Called pharmacy while at visit, pharmacy will have Rakan 2 sensors ready for patient today. Patient also requested prescription for strips and lancets, request sent to Dr. Jones. What is Diabetes? Pathophysiology How the body produces and uses insulin Identify type of DM Risk factors Signs of Diabetes Brief overview of Diabetes Management Monitoring blood sugar Following a meal plan Regular exercise Maintaining a healthy weight Taking medication as needed Members of the care team (PCP, RN, MA, RD, CDE, sales program coordinator) Blood glucose monitoring When/how often to test Target blood sugar ranges No meter today's visit Introduction to Nutrition Importance of healthy diet in managing DM Diet is personalized to individual preference Review patient?s regular diet/food preferences Who prepares meals/does food shopping/ Dining out?/ Barriers? How diet effects glucose Eating 3 balanced meals a day with small, healthy snacks between meals Review food groups Carbohydrates: What is a carbohydrate/Which food/food groups are considered carbohydrates Effect of carbohydrates on blood glucose Portion sizes Reading food labels Basic carb counting (if applicable per nursing assessment) Plate method Meal planning Recommendations: Follow plate method, consistent carbs and read nutritional labels. Smart Goal: Educational Materials: The patient was provided with the following written educational materials: Planning Healthy Meals, target goals Handout Patient Response to instructions: Comprehension of Instructions: Fair Readiness to make changes: Contemplation How confident they feel about making changes: Fair Patient will follow-up with simulation educator in 6 weeks Portions of this note were created using voice recognition software, please excuse any words or phrases that may have been misinterpreted. Patient Instructions: Incluir actividad diaria regular. ADA recomienda 30 minutos de ejercicio 5 d?as a la semana. P?rdida de peso, hable con el PCP o el cardi?logo antes de comenzar un nuevo plan. Mida el nivel de az?car en la cherrie seg?n las indicaciones; Ayuno y comida m?s sofia de 2hpp. Observe las tendencias en los resultados. Utilice los resultados y eval?e c?mo los alimentos, la actividad f?kvng y los medicamentos afectan los resultados de az?car en la cherrie. Lleve el gluc?metro o CGM a la pr?xima visita. Conocer los medicamentos para la diabetes, florez acci?n, los efectos secundarios, la eficacia, la toxicidad, la dosis prescrita, el momento y la frecuencia de administraci?n apropiados, el efecto de las dosis olvidadas y retrasadas y las instrucciones de almacenamiento, viaje y seguridad. T?cnicas de resoluci?n de problemas para el seguimiento de episodios de hipo/hiperglucemia y tratamientos. Reducir los comportamientos de reducci?n de riesgos, dejar de fumar, ex?menes regulares de ojos, pies y dentales. Coding Level of Care Code Est Pt Level 1 (36109) Diagnoses Diabetes type 2, uncontrolled E11.65
== END 2023-09-26 13:39 | disposition home or self-care (01) ==
PROVIDERS: PCP Internal Medicine; Visit Provider Registered Nurse Diabetes Educator
DX: E11.65 Type 2 diabetes mellitus with hyperglycemia (principal)

== ENCOUNTER → 2023-09-26 12:23 | Outpatient (BNVA) | payer OTHER, SELFPAY | PROVIDERS: PCP Internal Medicine; Visit Provider Registered Nurse Diabetes Educator | DX: E11.65 Type 2 diabetes mellitus with hyperglycemia (principal) | CPT/HCPCS: 99211 ==

== ENCOUNTER 2023-10-23 10:58 | Outpatient (AMB) | payer OTHER, SELFPAY ==
--- NOTE | 2023-10-23 11:00 | A.OFFVIS_ITS ---
VS Expanded 10/23/23 11:03 Height 5 ft 7 in Weight 193 lb 5.526 oz BMI 30.3 Intake Visit Reasons: T2DM/CONFIRMED Allergies No Known Allergies Allergy (Verified 09/12/23 10:57) Nutrition Presentation Details: Pt presents for MNT f/u for T2DM Pt reports working on diet modifications,denies hypoglycemia. physical activity: sedentary smokes 1 pack every 2 days BS Monitoring Most Recent Diabetes Results: Microalb/Creat Ratio 17.8 ug/mg cr (<30) 06/27/23 Cholesterol 136 mg/dL (<200) 06/27/23 HDL Cholesterol 45 mg/dL (>40) 06/27/23 Triglycerides 124 mg/dL (<150) 06/27/23 Creatinine 0.85 mg/dL (0.5-1.4) 06/27/23 Blood Urea Nitrogen 18 mg/dL (9-16) H 06/27/23 Sodium 141 mmol/L (135-145) 06/27/23 Potassium 4.1 mmol/L (3.3-5.1) 06/27/23 Chloride 106 mmol/L (96-108) 06/27/23 Carbon Dioxide 29 mmol/L (22-29) 06/27/23 Calcium 9.4 mg/dL (8.4-10.2) 06/27/23 AST 20 U/L (5-37) 05/01/22 ALT 25 U/L (0-40) 05/01/22 Total Protein 6.8 g/dL (6.5-8.0) 05/01/22 Albumin 4.5 g/dL (3.5-5.0) 05/01/22 [facility] Medical History Cigarette smoker Diabetes mellitus with diabetic neuropathy Heartburn Vitamin D deficiency HLD (hyperlipidemia) HTN (hypertension) T2DM (type 2 diabetes mellitus) Diabetes type 2, uncontrolled Surgical History Hx of colonoscopy Family History Father Diabetes mellitus Mother HTN (hypertension) Social History Household Members: Children Housing: Apartment Alcohol intake: current Alcohol intake frequency: holidays/special occasions only Patient Tobacco Use Status: Current someday Tobacco user Cigarettes Per Day: 3 e-Cigarette/Vaping Use: Never Used Current occupational status: unemployed Cognitive needs: No Hearing needs: No Vision needs: No Assessment & Plan Assessment & Plan (1) Diabetes type 2, uncontrolled: Code(s): E11.65 - Type 2 diabetes mellitus with hyperglycemia Category: Medical Plan: Wt: 88 Kg ( 09/2023 ) Est kcal needs as per MSJ: 2300 (40% carb, 30% protein/fat) Est fluid needs as per 25-30 ml/d: 2600 Est prot per day as per 1 g/kg bw: 88 Recommend fiber intake : 8-10 g per day and gradually increase to 25-28 g per day for women and 35-38 g for men or as tolerated Recommend sodium intake per day : less than 2000 mg Educated patient on: ( R = reviewed V = verbalizes understanding N/R = needs review N/A = not applicable * Food sources of carbohydrate, adequate serving sizes and its role in various health conditions: R * Differences between complex carbohydrates a simple carbohydrates, role of fiber in diet: R * Lean protein sources of foods: R * Differences between types of fats and role in diet (mono on saturated fat fatty acids, saturated fatty acids, trans fats): R V N/R * Food sources of sodium in salt and healthy modifications for heart health in kidney health: R V R/V * Vitamins and minerals: R V N/R * Healthy plate method concept: R V N/R * Physical activity: Benefits a precaution: R V N/R * Hypoglycemia protocol (rule of 15): R V N/R * Dietary prevention of Hyperglycemia: R Patient Instructions: * Engage in physical activity, walking 30 min daily at least * Reduce on smoking- 2 less Coding Level of Care Code Nutr Indiv Subseq (16204) Diagnoses Diabetes type 2, uncontrolled E11.65 Time Spent (min) 30
[2023-10-23 11:03] VITALS: BMI 30.3
== END 2023-10-23 11:31 | disposition home or self-care (01) ==
PROVIDERS: PCP Internal Medicine; Visit Provider Dietitian, Registered
DX: E11.65 Type 2 diabetes mellitus with hyperglycemia (principal)

== ENCOUNTER → 2023-10-23 10:58 | Outpatient (BNVA) | payer OTHER, SELFPAY | PROVIDERS: PCP Internal Medicine; Visit Provider Dietitian, Registered | DX: E11.65 Type 2 diabetes mellitus with hyperglycemia (principal) | CPT/HCPCS: 97803 ==

== ENCOUNTER 2023-11-22 13:04 | Outpatient (AMB) | payer OTHER, SELFPAY ==
--- NOTE | 2023-11-22 13:19 | A.OFFVIS_ITS ---
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: Yes Animal Keeper Head Language: Customer Experience Consultant Name: Chad Briggs Accompanied by: Daughter Allergies No Known Allergies Allergy (Verified 09/12/23 10:57) HPI Comprehensive Diabetes Asmnt Most Recent Diabetes Results: Microalb/Creat Ratio 17.8 ug/mg cr (<30) 06/27/23 Cholesterol 136 mg/dL (<200) 06/27/23 HDL Cholesterol 45 mg/dL (>40) 06/27/23 Triglycerides 124 mg/dL (<150) 06/27/23 Creatinine 0.85 mg/dL (0.5-1.4) 06/27/23 Blood Urea Nitrogen 18 mg/dL (9-16) H 06/27/23 Sodium 141 mmol/L (135-145) 06/27/23 Potassium 4.1 mmol/L (3.3-5.1) 06/27/23 Chloride 106 mmol/L (96-108) 06/27/23 Carbon Dioxide 29 mmol/L (22-29) 06/27/23 Calcium 9.4 mg/dL (8.4-10.2) 06/27/23 AST 20 U/L (5-37) 05/01/22 ALT 25 U/L (0-40) 05/01/22 Total Protein 6.8 g/dL (6.5-8.0) 05/01/22 Albumin 4.5 g/dL (3.5-5.0) 05/01/22 [facility] Medical History Cigarette smoker Diabetes mellitus with diabetic neuropathy Heartburn Vitamin D deficiency HLD (hyperlipidemia) HTN (hypertension) T2DM (type 2 diabetes mellitus) Diabetes type 2, uncontrolled Surgical History Hx of colonoscopy Family History Father Diabetes mellitus Mother HTN (hypertension) Social History Household Members: Children Housing: Apartment Alcohol intake: current Alcohol intake frequency: holidays/special occasions only Patient Tobacco Use Status: Current someday Tobacco user Cigarettes Per Day: 3 e-Cigarette/Vaping Use: Never Used Current occupational status: unemployed Cognitive needs: No Hearing needs: No Vision needs: No Assessment & Plan Assessment & Plan (1) T2DM (type 2 diabetes mellitus): Code(s): E11.9 - Type 2 diabetes mellitus without complications Qualifiers: Diabetes mellitus retirement insulin use: without retirement use Diabetes mellitus complication status: with hyperglycemia Qualified Code(s): E11.65 - Type 2 diabetes mellitus with hyperglycemia Plan: Learning objectives: The patient was provided with verbal and written education on the following topics as outlined below. Patient questions/concerns, patient had Education visit with his daughter. Reports he has restarted Trulicity 0.75 mg, denies any GI side effects. Patient is also taking Jardiance 10 mg daily Metformin 1000 mg b.i.d. daily Patient denies missing diabetes medication. Patient reports that his freestyle Rakan reader does not seem to be functioning. Recommended to patient and his daughter that they call [employer] to ask them to replace reader, and Rakan 2 sensors that he lost in process of trying to start new sensor. [employer] customer service number given to patient and his daughter Also recommended to check patient's cellphone to see if it is compatible with the Rakan 2 eda, if they need assistance in setting up new reader or Rakan eda instructed to contact focus puller Patient has upcoming appointment in January of [address] Jones, and RD At next appointment with Dr. Jones patient will have A1c drawn The patient met all learning objectives and was able to verbalize understanding and provide teach back of education topics discussed . The patient was provided with the opportunity to ask questions and all questions were answered. Topics covered in today?s session included: Medications (If applicable) * Name of medication? * Dosing/administration instructions? * Mechanism of action? * Potential side effects? * Potential adverse reaction and appropriate treatment? * Review onset, peak, duration Assess for concerns re: insurance coverage, cost, barriers to compliance Insulin/Injectables (If applicable) * Storage/care of insulin?? * Injection sites? * Site rotation? * Onset, peak, duration * Drawing up insulin? * Injecting insulin/other injectables? * Sharps disposal Continuous blood glucose monitoring (if applicable) Hypoglycemia and Hyperglycemia * Signs and symptoms? * Causes?? * Treatment? * Preventing hypoglycemia? * When to seek medical attention * Blood glucose targets and how you feel when your blood glucose is in and out of your target ranges. * Monitoring and knowing your A1C. * What can make blood glucose go up and down and preventing high and low blood glucose. * Review of blood sugar targets in expected goal range and outside of expected goal range. * Problem solving and preventing hyper/hypoglycemia. * Sick day management of diabetes. * Using blood sugar results in decision making process in managing diabetes. ?Patient was receptive to information provided and participated in the discussion. Asked?appropriate questions and demonstrated good understanding of the topics discussed.? ? Educational Materials: The patient was provided with the following written educational materials: How to treat hypoglycemia handout in Lao Smart Goal:? Patient will increase BG testing to 2 times daily, at very times of the day Patient Response to instructions: Comprehension of Instructions: fair Readiness to make changes:? Contemplation How confident they feel about making changes: Fair Portions of this note were created using voice recognition software, please excuse any words or phrases that may have been misinterpreted. 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
== END 2023-11-22 13:45 | disposition home or self-care (01) ==
PROVIDERS: PCP Internal Medicine; Visit Provider Registered Nurse Diabetes Educator
DX: E11.65 Type 2 diabetes mellitus with hyperglycemia (principal)

== ENCOUNTER → 2023-11-22 13:04 | Outpatient (BNVA) | payer OTHER, SELFPAY | PROVIDERS: PCP Internal Medicine; Visit Provider Registered Nurse Diabetes Educator | DX: E11.65 Type 2 diabetes mellitus with hyperglycemia (principal); E11.40 Type 2 diabetes mellitus with diabetic neuropathy, unspecified; Z79.85 Long-term (current) use of injectable non-insulin antidiabetic drugs | CPT/HCPCS: 99211 ==

== ENCOUNTER 2024-01-23 11:21 | Outpatient (AMB) | payer OTHER, SELFPAY ==
--- NOTE | 2024-01-23 12:18 | A.OFFVIS_ITS ---
Intake Visit Reasons: T2DM Allergies No Known Allergies Allergy (Verified 01/23/24 11:24) Nutrition Presentation Details: PT presents for MNT f/u for T2DM Pt presents with daughter who helps with meal preparation. Pt reports doing well with meal, following healthy plate method and working on mindfulness with pastries and similar foods. Pt c/o GERD and reports increasing in smoking, also reports he will be traveling tomorrow. Pt was advised to discuss smoking cessation with PCP. BS Monitoring Most Recent Diabetes Results: No Data to Display PFSH Medical History Cigarette smoker Diabetes mellitus with diabetic neuropathy Heartburn Vitamin D deficiency HLD (hyperlipidemia) HTN (hypertension) T2DM (type 2 diabetes mellitus) Diabetes type 2, uncontrolled Surgical History (Updated 01/23/24 @ 11:31 by ASHLEIGH Porras) Hx of eye surgery Hx of colonoscopy Family History Father Diabetes mellitus Mother HTN (hypertension) Social History Household Members: Children Housing: Apartment Alcohol intake: current Alcohol intake frequency: holidays/special occasions only Patient Tobacco Use Status: Current someday Tobacco user Cigarettes Per Day: 3 e-Cigarette/Vaping Use: Never Used Current occupational status: unemployed Cognitive needs: No Hearing needs: No Vision needs: No Assessment & Plan Assessment & Plan (1) Diabetes type 2, uncontrolled: Code(s): E11.65 - Type 2 diabetes mellitus with hyperglycemia Category: Medical Plan: Wt: 88 Kg ( 09/2023 ) Est kcal needs as per MSJ: 2300 (40% carb, 30% protein/fat) Est fluid needs as per 25-30 ml/d: 2600 Est prot per day as per 1 g/kg bw: 88 Recommend fiber intake : 8-10 g per day and gradually increase to 25-28 g per day for women and 35-38 g for men or as tolerated Recommend sodium intake per day : less than 2000 mg Educated patient on: ( R = reviewed V = verbalizes understanding N/R = needs review N/A = not applicable * Food sources of carbohydrate, adequate serving sizes and its role in various health conditions: R * Differences between complex carbohydrates a simple carbohydrates, role of f iber in diet: R * Lean protein sources of foods: R * Differences between types of fats and role in diet (mono on saturated fat fatty acids, saturated fatty acids, trans fats): R * Food sources of sodium in salt and healthy modifications for heart health in kidney health: R V R/V * Vitamins and minerals: R * Healthy plate method concept: R V N/R * Physical activity: Benefits a precaution: R V N/R * Hypoglycemia protocol (rule of 15): R V * Dietary prevention of Hyperglycemia: R Patient Instructions: Choose lower fat cooking method - air fried, boiling/steaming vs fried foods Choose poultry/fish steamed/stewed in place of fried meats Have low fat milk with meals Coding Level of Care Code Nutr Indiv Subseq (15814) Diagnoses Diabetes type 2, uncontrolled E11.65 Time Spent (min) 30
== END 2024-01-23 12:20 | disposition home or self-care (01) ==
PROVIDERS: PCP Internal Medicine; Visit Provider Dietitian, Registered
DX: E11.65 Type 2 diabetes mellitus with hyperglycemia (principal)

== ENCOUNTER 2024-01-23 11:21 | Outpatient (AMB) | payer OTHER, SELFPAY ==
--- NOTE | 2024-01-23 07:53 | A.OFFVIS_ITS ---
Vital Signs 01/23/24 11:26 Height 5 ft 7 in Weight 196 lb 3.382 oz BMI 30.7 BP 130/80 Blood Pressure Location Rt brachial Position Sitting Pulse 79 Pulse Source Pulse Oximeter Intake Visit Reasons: f/u Type 2 DM/CONFIRMED Intake Note: Patient presents today to re-establish treatment for Type 2 Diabetes Mellitus: Last Diabetic eye exam was on: 10/2023 Last Podiatry exam was on: Does not see a Recording Studio Setup Worker Most recent HbA1c: 7.6%, 01/23/2024 Random Glucose- 230 mg/dL, Today Used tablet for manager front office:: #[id number] Wool Sacker Required: Yes Wool Sacker Language: Motorcycle Racer Services: Wool Sacker Present (Via video call) Accompanied by: Self / Same As Patient Allergies No Known Allergies Allergy (Verified 01/23/24 11:24) HPI Comments Details: 58 YO M with PMHx T2DM, HTN, HLD who is seen in F/U for T2DM. . Patient last seen by Dr. Jones 09/12/23 at which time freestyle Rakan 2 and Jardiance were re-initiated. HgbA1C 01/23/24 %, 09/12/23 8.5%, 05/15 7.6% Initially diagnosed with T2DM in 2011 when he presented with DKA/HHS. Was initially started on treatment with insulin at the time of diagnosis. He had remained on once daily insulin ever since until initial endocrine visit at which time he was noted to be having frequent, daily am low sugars. His insulin was stopped at that time and he was switched to his current regimen below. Current regimen: Metformin 1000 mg PO BID Trulicity 0.75 mg Qwkly Jardiance 10 mg PO daily Freestyle rakan sensor 2 average glucose: [114 ] Glucose Management indicator [6% ] % TIme in ranges: 0 % very high (above 250) 4 % high (181-250) 93 % in range (70-180] 2 % low (69-55) 1 % very low (below 54) Interpretation of fs rakan[lows around 3 in the morning and 15:00 ] Family history of T2DM in his Father and Brother. No retinopathy, has vitromacular adhesion. Last seen by [facility] 09/2023. Has Neuropathy, does not see podiatry. On gabapentin No Nephropathy, on Losartan 25 mg PO daily. urine microalbumin 19.0 eGFR >60 06/2023 Has HLD, on Atorvastatin 40 mg PO qHS. LDL 67 06/2023 1 Has chest pain lasting 15 min every other day to daily while sitting, does not occur with activity When it occurs he can press on his left chest and trigger pain. It has not increased in frequency. He had planned on discussing with his PCP however his upcoming appt was cancelled and moved out to August 2024. Diet: Eats 3 meals Weight: Unchanged. Had CDE. [facility] Medical History Cigarette smoker Diabetes mellitus with diabetic neuropathy Heartburn Vitamin D deficiency HLD (hyperlipidemia) HTN (hypertension) T2DM (type 2 diabetes mellitus) Diabetes type 2, uncontrolled Surgical History (Updated 01/23/24 @ 11:31 by ASHLEIGH Porras) Hx of eye surgery Hx of colonoscopy Family History Father Diabetes mellitus Mother HTN (hypertension) Social History Household Members: Children Housing: Apartment Alcohol intake: current Alcohol intake frequency: holidays/special occasions only Patient Tobacco Use Status: Current someday Tobacco user Cigarettes Per Day: 3 e-Cigarette/Vaping Use: Never Used Current occupational status: unemployed Cognitive needs: No Hearing needs: No Vision needs: No Physical Exam Vital Signs: Last Vital Signs Pulse 79 01/23/24 11:26 BP 130/80 01/23/24 11:26 BMI result Body Mass Index 30.7 Const Other: Absence of Cushingoid features. Absence of acromegalic features. Neck exam reveals nl size thyroid about 15 gms. No thyroid nodules palpable. No carotid bruits present. Lungs CTA. Heart S1 S2, Reg R/R. No M/R G. Skin exam reveals absence of vitiligo or acanthosis nigricans. No edema Visual exam of foot performed. No ulcerations or open lesions. No inter digit maceration or fissuring. No onychomycosis, no callouses. Sensation intact to monofilament exam. Vibratory sensation is normal with 128 Hz tuning fork. Results AMB Hemoglobin A1c AMB Hemoglobin A1c 7.6 % Last Edit by ASHLEIGH Porras on 01/23/24 11:44 Results Reviewed Results Reviewed: Laboratory Last Values Glucose (Clinic) 230 mg/dL (60-115) H 01/23/24 11:32 Hgb A1c (Clinic) 7.6 % (4.0-6.0) H 01/23/24 11:24 Laboratory Tests 10/31/18 01/25/21 05/01/22 11:30 09:00 10:40 Plt Count 196 Potassium Creatinine Estimated GFR Hgb A1c (Clinic) Calcium AST 20 ALT 25 Triglycerides Cholesterol LDL Cholesterol, Calc HDL Cholesterol Urine Microalbumin 32.0 22.0 06/27/23 09/12/23 07:52 11:11 Plt Count Potassium 4.1 Creatinine 0.85 Estimated GFR > 60 Hgb A1c (Clinic) 8.5 H Calcium 9.4 AST ALT Triglycerides 124 Cholesterol 136 LDL Cholesterol, Calc 67 HDL Cholesterol 45 Urine Microalbumin 19.0 Assessment & Plan Assessment & Plan (1) Diabetes mellitus with diabetic neuropathy: Code(s): E11.40 - Type 2 diabetes mellitus with diabetic neuropathy, unspecified Category: Medical Plan: Type 2 diabetic with neuropathy with most recent A1c of 7.6% on 01/23/2024. Sugars more recently have been an average of 114 with some lows at 03:00 and 15:00. He will continue Jardiance and Trulicity and reduce metformin to a 1000 once daily. He was asked to contact the office if his numbers increase above target or any continued lows. A prescription was sent for his gabapentin for neuropathy and I left word with his primary care physician that he has been having atypical chest pain and requested a call back. The patient was advised if he has chest pain to sit down if it does not resolve after 5 minutes he should go to the ER via 911. Orders: Orders AMB Hemoglobin A1c Today E11.65 - Type 2 diabetes mellitus with hyperglycemia Medications: Changed From metformin 1,000 mg PO BID 180 tabs 2RF E11.65 - Type 2 diabetes mellitus with hyperglycemia To metformin 1,000 mg PO ONCE 90 days 90 tabs 2RF E11.65 - Type 2 diabetes mellitus with hyperglycemia Refilled gabapentin 800 mg PO TID 90 tabs 1RF E11.40 - Type 2 diabetes mellitus with diabetic neuropathy, unspecified Discontinued pen needle, diabetic (BD Ultra-Fine Suad Pen Needle) Discontinued Reason: Doctor's Order 1 ea miscellaneous DAILY 90 days 30 ea 11RF E11.65 - Type 2 diabetes mellitus with hyperglycemia Patient Instructions: The patient was counseled to achieve a target A1C of 7% (154 avg). Fasting blood sugars should be 90-130 in the morning and less than 180 two hours after meals. Reviewed the relationship between poor diabetic control and the development of complications The patient was counseled to always carry a source of sugar and on the rule of 15's: Take 3 glucose tablets and repeat again in 15 minutes if blood sugar is not in normal range. Continue to repeat every 15 minutes until blood sugar is normal. The patient was counseled to wear closed toe shoes, never walk barefooted and to inspect the feet daily. For any signs of infection or open wound patient should notify PCP or go to urgent care. Coding Level of Care Code Est Pt Level 5 (65788) Complex EM visit Add On G2211 Diagnoses Diabetes mellitus with diabetic neuropathy E11.40 Time Spent (min) 60 Comment Time spent reviewing labs/provider notes, glucose,sensor reports, face to face, chart doc
[2024-01-23 11:26] VITALS: BP 130/80; PULSE 79; BMI 30.7
[2024-01-23 11:36] LABS: Glucose, Whole Blood 230 mg/dL (60-115)
== END 2024-01-23 12:05 | disposition home or self-care (01) ==
PROVIDERS: PCP Internal Medicine; Visit Provider Nurse Practitioner Adult Health
DX: E11.40 Type 2 diabetes mellitus with diabetic neuropathy, unspecified (principal); E11.65 Type 2 diabetes mellitus with hyperglycemia
CPT/HCPCS: 99215; G2211

== ENCOUNTER → 2024-01-23 11:21 | Outpatient (BNVA) | payer OTHER, SELFPAY | PROVIDERS: PCP Internal Medicine; Visit Provider Nurse Practitioner Adult Health | DX: E11.65 Type 2 diabetes mellitus with hyperglycemia (principal); E11.40 Type 2 diabetes mellitus with diabetic neuropathy, unspecified; Z79.84 Long term (current) use of oral hypoglycemic drugs; Z79.85 Long-term (current) use of injectable non-insulin antidiabetic drugs | CPT/HCPCS: 82947; 83036; 97803; 99212 ==

== ENCOUNTER 2024-07-02 11:11 | Outpatient (AMB) | payer OTHER, SELFPAY ==
[2024-07-02 11:30] VITALS: BMI 30.8
--- NOTE | 2024-07-02 11:30 | A.OFFVIS_ITS ---
VS Expanded 07/02/24 11:30 Height 5 ft 7 in Weight 196 lb 6.91 oz BMI 30.8 Intake Visit Reasons: T2DM Allergies No Known Allergies Allergy (Verified 01/23/24 11:24) Nutrition Presentation Details: Pt presents for MNT f/u for T2DM Pt reports increased appetite in the evening, choosing juices/high sugar foods/snacks c/o of discomfort from gastritis and no appetite in AM Typical meal intake No appetite in AM has coffee/diet sugar 2-3 pm pm: rice/chicken/salad, juice or soda 6-8 pm Brandywine (chicken,juice >9pm juice, pastries, candies physical activity:sedentary eoth /smoking --- Reports needing refills on LIFXstyle lite test strips - message sent to provider BS Monitoring Most Recent Diabetes Results: No Data to Display PFSH Medical History Cigarette smoker Diabetes mellitus with diabetic neuropathy Heartburn Vitamin D deficiency HLD (hyperlipidemia) HTN (hypertension) T2DM (type 2 diabetes mellitus) Diabetes type 2, uncontrolled Surgical History (Updated 01/23/24 @ 11:31 by ASHLEIGH Porras) Hx of eye surgery Hx of colonoscopy Family History Father Diabetes mellitus Mother HTN (hypertension) Social History Household Members: Children Housing: Apartment Alcohol intake: current Alcohol intake frequency: holidays/special occasions only Patient Tobacco Use Status: Current someday Tobacco user Cigarettes Per Day: 3 e-Cigarette/Vaping Use: Never Used Current occupational status: unemployed Cognitive needs: No Hearing needs: No Vision needs: No Assessment & Plan Assessment & Plan (1) Diabetes type 2, uncontrolled: Code(s): E11.65 - Type 2 diabetes mellitus with hyperglycemia Category: Medical Plan: Discuss relationship of food,BG and gastritis . Diet modifications to improve glucose and reduce symptoms of gastritis. Pt was advised to follow up with the doctors to discuss symptoms Wt: 88 Kg ( 09/2023 ), 89 kg (07/15) Est kcal needs as per MSJ: 2300 (40% carb, 30% protein/fat) Est fluid needs as per 25-30 ml/d: 2600 Est prot per day as per 1 g/kg bw: 88 Recommend fiber intake : 8-10 g per day and gradually increase to 25-28 g per day for women and 35-38 g for men or as tolerated Recommend sodium intake per day : less than 2000 mg Educated patient on: ( R = reviewed V = verbalizes understanding N/R = needs review N/A = not applicable * Food sources of carbohydrate, adequate serving sizes and its role in various health conditions: R * Differences between complex carbohydrates a simple carbohydrates, role of fiber in diet: R * Lean protein sources of foods: R * Differences between types of fats and role in diet (mono on saturated fat fatty acids, saturated fatty acids, trans fats): R * Food sources of sodium in salt and healthy modifications for heart health in kidney health: R V R/V * Vitamins and minerals: R * Healthy plate method concept: R V N/R * Physical activity: Benefits a precaution: R V N/R * Hypoglycemia protocol (rule of 15): R V * Dietary prevention of Hyperglycemia: R * Relationship of food/BG and gastritis: R Patient Instructions: Eat 4 hours before going to bed Choose fruit and peanut butter as snack or yogurt as snack - working on reducing sugary snacks and not eating so late at night Drink water or low fat milk in place of juices/soda monitor blood sugar fasting and before bedtime and bring glucometer to the appt to discuss with your doctor on 07/22/24 Coding Level of Care Code Nutr Indiv Subseq (49270) Diagnoses Diabetes type 2, uncontrolled E11.65 Time Spent (min) 30
== END 2024-07-02 11:51 | disposition home or self-care (01) ==
LOC: HO.ENCR 11:12
PROVIDERS: PCP Internal Medicine; Visit Provider Dietitian, Registered
DX: E11.65 Type 2 diabetes mellitus with hyperglycemia (principal)

== ENCOUNTER → 2024-07-02 11:11 | Outpatient (BNVA) | payer OTHER, SELFPAY | PROVIDERS: PCP Internal Medicine; Visit Provider Dietitian, Registered | DX: E11.65 Type 2 diabetes mellitus with hyperglycemia (principal) | CPT/HCPCS: 97803 ==

== ENCOUNTER 2024-08-19 08:45 | Outpatient (AMB) | payer OTHER, SELFPAY ==
--- NOTE | 2024-08-19 07:15 | A.OFFVIS_ITS ---
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 Most recent HbA1c: 10.6% Random Glucose- 184 mg/dL Maintenance Worker Municipal Required: Yes Maintenance Worker Municipal Language: Improvement Leader Services: Maintenance Worker Municipal Present Maintenance Worker Municipal Name: Gaetano [id number] Information Interpreted: non-clinical & clinical Accompanied by: Daughter Allergies No Known Allergies Allergy (Verified 08/19/24 08:56) Medication List - Last Reconciled 08/19/24 by Mary Grace Madrigal NP acetaminophen 1,000 mg (2 x 500 mg) PO Q6H PRN aspirin 1 tab PO DAILY atenolol 50 mg PO DAILY atorvastatin 80 mg PO BEDTIME 90 days bisacodyl (Dulcolax (bisacodyl)) 10 mg (2 x 5 mg) PO ONCE 1 day blood sugar diagnostic (FreeStyle Lite Strips) As directed test once a day blood-glucose sensor (FreeStyle Rakan 3 Plus Sensor device) As directed every 15 days blood-glucose,heat treater apprentice,cont (FreeStyle Rakan 3 [place]) As directed every 15 days celecoxib 100 mg PO BID dulaglutide (Trulicity) 3 mg (0.5 mL) subcut QWEEK 28 days empagliflozin (Jardiance) 10 mg PO DAILY 30 days gabapentin 800 mg PO TID insulin glargine (Lantus Solostar U-100 Insulin) 10 units (0.1 mL) subcut QPM 30 days lancets (FreeStyle Lancets) As directed test once a day losartan 50 mg PO DAILY 90 days metformin 1,000 mg PO ONCE 90 days pen needle, diabetic As directed daily polyethylene glycol 3350 (Miralax) 238 grams PO ONCE 1 day HPI Comments Details: 59 YO M with PMHx T2DM, HTN, HLD who is seen in F/U for T2DM. . Patient last seen 01/22/25 with an improved A1c of 7.6%. HGB A1c 08/19/2024 10.6% Initially diagnosed with T2DM in 2011 when he presented with DKA/HHS. Was initially started on treatment with insulin at the time of diagnosis. He had remained on once daily insulin ever since until initial endocrine visit at which time he was noted to be having frequent, daily am low sugars. His insulin was stopped at that time and he was switched to his current regimen below. Current regimen: Metformin 1000 mg PO BID Trulicity 1.5 mg Qwkly Jardiance 10 mg PO daily His FS 2 reader is broken and he has been testing his sugars once daily with the an average of 229. Family history of T2DM in his Father and Brother. No retinopathy, has vitromacular adhesion. Last seen by [facility] 09/2023. Has Neuropathy, does not see podiatry. On gabapentin occ pain No Nephropathy, on Losartan 25 mg PO daily. urine microalbumin 19.0 eGFR >60 06/2023 Has HLD, on Atorvastatin 40 mg PO qHS. LDL 67 06/2023 1 At his last visit he had reported chest pain lasting 15 min every other day to daily while sitting, does not occur with activity When it occurs he can press on his left chest and trigger pain. His PCP office was notified. He had planned on discussing with his PCP however his upcoming appt was cancelled and moved out to August 2024. He has had no further occurrences of this since his last visit but he will still plan to discuss this with his PCP. He was advised if he has chest pain to sit down and rest if it does not go away in 5 minutes to call 911. Has a heavy smoker complains of heaviness in his right leg. Diet: Eats 3 meals often eats sweets and larger portions of carbohydrates Weight: Down 5 lb since last visit Has seen [facility] in the past [facility] Medical History (Updated 08/19/24 @ 09:54 by Mary Grace Madrigal NP) Atypical chest pain Cigarette smoker Diabetes mellitus with diabetic neuropathy Heartburn Vitamin D deficiency HLD (hyperlipidemia) HTN (hypertension) T2DM (type 2 diabetes mellitus) Diabetes type 2, uncontrolled Surgical History Hx of eye surgery Hx of colonoscopy Family History Father Diabetes mellitus Mother HTN (hypertension) Social History Household Members: Children Housing: Apartment Alcohol intake: current Alcohol intake frequency: holidays/special occasions only Patient Tobacco Use Status: Current someday Tobacco user Cigarettes Per Day: 3 e-Cigarette/Vaping Use: Never Used Current occupational status: unemployed Cognitive needs: No Hearing needs: No Vision needs: No Physical Exam Vital Signs: Last Vital Signs Pulse 76 08/19/24 08:51 BP 142/90 H 08/19/24 08:51 Pulse Ox 96 08/19/24 08:51 Oxygen Delivery Method Room Air 08/19/24 08:51 BMI result Body Mass Index 30.0 Const Other: Absence of Cushingoid features. Absence of acromegalic features. Neck exam reveals nl size thyroid about 15 gms. No thyroid nodules palpable. No carotid bruits present. Lungs CTA. Heart S1 S2, Reg R/R. No M/R G. Skin exam reveals absence of vitiligo or acanthosis nigricans. No edema Visual exam of foot performed. No ulcerations or open lesions. No inter digit maceration or fissuring. No onychomycosis, no callouses. Sensation intact to monofilament exam. Vibratory sensation is normal with 128 Hz tuning fork. pulse slight diminished Results AMB Hemoglobin A1c AMB Hemoglobin A1c 10.6 % Last Edit by ASHLEIGH Sepulveda on 08/19/24 09:10 Results Reviewed Results Reviewed: Laboratory Last Values Glucose (Clinic) 184 mg/dL (60-115) H 08/19/24 09:00 Hgb A1c (Clinic) 10.6 % (4.0-6.0) H 08/19/24 09:05 Assessment & Plan Assessment & Plan (1) T2DM (type 2 diabetes mellitus): Code(s): E11.9 - Type 2 diabetes mellitus without complications Category: Medical Qualifiers: Diabetes mellitus complication status: with hyperglycemia Diabetes mellitus extermination supervisor insulin use: without extermination supervisor use Qualified Code(s): E11.65 - Type 2 diabetes mellitus with hyperglycemia Plan: 59-year-old type 2 diabetic with neuropathy with A1c in the office today of 10.6% with poor dietary compliance. He was asked to follow more balanced diet. We will increase Trulicity from 1.5- 3.0 weekly. He was advised he may have symptoms when the increase occurs and if they these do not resolve he is to notify the office. We will start the patient on 10 units of Lantus at bedtime. He will fern picker the prescription for this and return for [facility] visit for both insulin training and freestyle Rakan 3+. His freestyle Rakan 2 reader is broken and given that he has high A1c and starting insulin it would be best that he gets started on a freestyle Rakan 3+ and an order for both the sensor and reader have been place. The patient had an opportunity to ask questions regarding treatment plan. The patient expressed understanding and agreement with the above treatment plan. The patient is aware they should contact our office by phone for worsening glucose readings or for any low blood sugars which may warrant a change in diabetes medication. Compliance is encouraged with medications and any followup testing/consults which may have been ordered. (2) Peripheral vascular disease: Code(s): I73.9 - Peripheral vascular disease, unspecified Plan: VANDANA has been ordered to rule out PVD (3) Atypical chest pain: Code(s): R07.89 - Other chest pain Category: Medical Plan: He has had no further recurrence since his last visit in January with but was advised to discuss this at his upcoming appointment with his PCP. Orders: Orders AMB Hemoglobin A1c Today E11.65 - Type 2 diabetes mellitus with hyperglycemia, Z13.9 - Encounter for screening, unspecified Medications: New pen needle, diabetic As directed daily 50 ea 6RF blood-glucose sensor (FreeStyle Rakan 3 Plus Sensor device) As directed every 15 days 2 ea 11RF dulaglutide (Trulicity) 3 mg (0.5 mL) subcut QWEEK 28 days 2 mL 11RF insulin glargine (Lantus Solostar U-100 Insulin) 10 units (0.1 mL) subcut QPM 30 days 3 mL 6RF blood-glucose,heat treater apprentice,cont (FreeStyle Rakan 3 [place]) As directed every 15 days 1 ea 0RF E11.65 - Type 2 diabetes mellitus with hyperglycemia Refilled empagliflozin (Jardiance) 10 mg PO DAILY 30 days 30 tabs 11RF E11.65 - Type 2 diabetes mellitus with hyperglycemia empagliflozin (Jardiance) 10 mg PO DAILY 30 days 30 tabs 11RF E11.65 - Type 2 diabetes mellitus with hyperglycemia Discontinued flash glucose scanning reader (FreeStyle Rakan 2 [place]) Discontinued Reason: No Longer Medically Relevant As directed 1 ea 0RF flash glucose sensor (FreeStyle Rakan 2 Sensor kit) Discontinued Reason: Doctor's Order Once every 14 days 2 ea 11RF E55.9 - Vitamin D deficiency, unspecified dulaglutide (Trulicity) Discontinued Reason: Doctor's Order 1.5 mg (0.5 mL) subcut QWEEK 28 days 2 mL 6RF Patient Instructions: Take 15 carb carbohydrate grams to treat a low sugar (3-4 glucose tablets, half a glass of juice or 15 carbohydrate grams of soft candy such as gummie snacks). Recheck your sugar in 15 minutes and re-treat again with 15 carbohydrate grams if low or still with symptoms. Do not drive a car or operate machinery if you do not know what your blood sugar is, if it is low or in excess of 300. The patient was counseled to achieve a target A1C of 7% (154 avg). Fasting blood sugars should be 90-130 in the morning and less than 180 two hours after meals. Reviewed the relationship between poor diabetic control and the development of complications. Coding Level of Care Code Est Pt Level 4 (16849) Complex EM visit Add On G2211 Diagnoses Type 2 diabetes mellitus with hyperglycemia, without long-term current use of insulin E11.65 Diabetes mellitus complication status: with hyperglycemia Diabetes mellitus extermination supervisor insulin use: without extermination supervisor use Peripheral vascular disease I73.9 Atypical chest pain R07.89 Time Spent (min) 45 Comment Time spent reviewing labs/provider notes, face to face, chart doc
[2024-08-19 08:51] VITALS: BP 142/90; PULSE 76; O2SAT 96
[2024-08-19 09:05] LABS: Glucose, Whole Blood 184 mg/dL (60-115)
== END 2024-08-19 09:43 | disposition home or self-care (01) ==
LOC: HO.ENCR 08:46
PROVIDERS: PCP Internal Medicine; Visit Provider Nurse Practitioner Adult Health
DX: E11.65 Type 2 diabetes mellitus with hyperglycemia (principal); I73.9 Peripheral vascular disease, unspecified; R07.89 Other chest pain; Z13.9 Encounter for screening, unspecified
CPT/HCPCS: 99214; G2211

== ENCOUNTER → 2024-08-19 08:45 | Outpatient (BNVA) | payer OTHER, SELFPAY | PROVIDERS: PCP Internal Medicine; Visit Provider Nurse Practitioner Adult Health | DX: E11.65 Type 2 diabetes mellitus with hyperglycemia (principal); E55.9 Vitamin D deficiency, unspecified; I73.9 Peripheral vascular disease, unspecified; I10 Essential (primary) hypertension; R07.89 Other chest pain; E78.5 Hyperlipidemia, unspecified | CPT/HCPCS: 82947; 83036; 99212 ==

== ENCOUNTER 2024-08-20 08:36 | Outpatient (REF) | payer OTHER, SELFPAY ==
[2024-08-20 10:09] LABS: Basophils Absolute Auto 0.1 X10*3/uL (0.0-0.2); Basophils Percent Auto 0.4 % (0-2); Eosinophils Absolute Auto 4.4 X10*3/uL (0.0-0.4); Eosinophils Percent Auto 32.5 % (0-4); Hematocrit 42.1 % (42.0-52.0); Hemoglobin 14.4 g/dl (14.0-18.0); Imm Gran Abs Auto 0.04 X10*3/uL (0.00-0.03); Imm Gran Pct Auto 0.3 % (0.0-0.4); Lymphocytes Absolute Auto 2.8 X10*3/uL (1.2-4.9); Lymphocytes Percent Auto 20.4 % (20-40); MANUAL DIFF FLAG SCAN; Mean Corpuscular HGB Conc 34.2 g/dl (31.0-36.0); Mean Corpuscular Hemoglobin 31.3 pg (27.0-33.0); Mean Corpuscular Volume 91.5 fL (80.0-98.0); Mean Platelet Volume 11.3 fL (9.4-12.4); Monocytes Absolute Auto 0.6 X10*3/uL (0.1-1.2); Monocytes Percent Auto 4.6 % (2-11); Neutrophils Absolute Auto 5.7 x10*3/uL (2.0-8.3); Neutrophils Percent Auto 41.8 % (45-73); Platelet Count 241 X10*3/uL (160-400); Red Cell Distribution Width 12.4 % (11.0-16.0); SCAN SMEAR FLAG 1; White Blood Count 13.6 X10*3/uL (4.8-10.8)
[2024-08-20 10:28] LABS: Alanine Aminotransferase 36 U/L (0-40); Albumin Level 4.2 g/dL (3.5-5.0); Alkaline Phosphatase 115 U/L (39-117); Anion Gap 12 (12-20); Aspartate Amino Transferase 19 U/L (5-37); Bilirubin Total 0.3 mg/dL (0.0-1.0); Blood Urea Nitrogen 17 mg/dL (9-16); Calcium 9.3 mg/dL (8.4-10.2); Carbon Dioxide 26 mmol/L (22-29); Chloride 105 mmol/L (96-108); Cholesterol 118 mg/dL (<200); Estimated Glomerular Filt Rate > 60; Glucose Fasting 224 mg/dL (60-99); HDL Cholesterol 33 mg/dL (>40); LDL Cholesterol Calculated 41 mg/dL (<100); Potassium 3.9 mmol/L (3.3-5.1); Sodium 139 mmol/L (135-145); Total Protein 6.6 g/dL (6.5-8.0); Triglycerides 223 mg/dL (<150)
[2024-08-20 10:40] LABS: Creatinine Urine 75.14 mg/dL; Microalbum/Creatinine Ratio Ur 22.6 ug/mg cr (<30)
[2024-08-20 10:56] LABS: SLIDE REVIEW VERIFIED
[2024-08-28 10:49] LABS: Testosterone, Free 97.7 pg/mL (35.0-155.0); Testosterone, Total 481 ng/dL (250-1100)
== END 2024-08-20 08:37 | disposition home or self-care (01) ==
LOC: HO.10HDL 08:36
PROVIDERS: Visit Provider Nurse Practitioner Adult Health
DX: E11.65 Type 2 diabetes mellitus with hyperglycemia (principal); E11.40 Type 2 diabetes mellitus with diabetic neuropathy, unspecified; E29.1 Testicular hypofunction
CPT/HCPCS: 36415; 80053; 80061; 82043; 82570; 84402; 84403; 85025

== ENCOUNTER 2024-08-22 09:38 | Emergency (ER) | payer OTHER, SELFPAY ==
--- NOTE | ~2024-08-22 | US_ITS ---
EXAMINATION: US SCROTUM CLINICAL INFORMATION: Bilateral testicular pain.. COMPARISON: None available. TECHNIQUE: A sonogram of the scrotum was performed assessing samuels-scale appearance and color Doppler flow. Spectral Doppler analysis of the arterial and venous flow were performed in the testes bilaterally. FINDINGS: RIGHT: Right testicle measures 4.7 x 2.2 x 3.0 cm, volume 17 mL. No solid or cystic lesion. Spectral Doppler analysis of the arterial and venous flow is normal in the right testis. Right epididymal head is normal in size with 0.5 cm simple cyst. There is a small volume of fluid in the scrotal sac. There is mild prominence of the pampiniform plexus. Right epididymal Doppler flow is normal. LEFT: Left testicle measures 5.0 x 2.0 x 2.7 cm, volume 14 mL. No solid or cystic lesions. Spectral Doppler analysis of the arterial and venous flow is normal in the left testis. Left epididymal head is normal in size with a 0.4 cm simple cysts. There is prominence of the pampiniform plexus. There is a trace of fluid in the scrotal sac. Left epididymal Doppler flow is normal. US/US scrotum doppler IMPRESSION: No testicular torsion. Bilateral hydroceles, small volume, right greater than the left. Prominent pampiniform plexus without overt varicocele. Simple cysts, both epididymal heads Electronically signed by: Kyle Ga MD 08/22/2024 11:57 AM EDT
--- NOTE | ~2024-08-22 | US_ITS ---
EXAMINATION: US SCROTUM CLINICAL INFORMATION: Bilateral testicular pain.. COMPARISON: None available. TECHNIQUE: A sonogram of the scrotum was performed assessing samuels-scale appearance and color Doppler flow. Spectral Doppler analysis of the arterial and venous flow were performed in the testes bilaterally. FINDINGS: RIGHT: Right testicle measures 4.7 x 2.2 x 3.0 cm, volume 17 mL. No solid or cystic lesion. Spectral Doppler analysis of the arterial and venous flow is normal in the right testis. Right epididymal head is normal in size with 0.5 cm simple cyst. There is a small volume of fluid in the scrotal sac. There is mild prominence of the pampiniform plexus. Right epididymal Doppler flow is normal. LEFT: Left testicle measures 5.0 x 2.0 x 2.7 cm, volume 14 mL. No solid or cystic lesions. Spectral Doppler analysis of the arterial and venous flow is normal in the left testis. Left epididymal head is normal in size with a 0.4 cm simple cysts. There is prominence of the pampiniform plexus. There is a trace of fluid in the scrotal sac. Left epididymal Doppler flow is normal. US/US scrotum IMPRESSION: No testicular torsion. Bilateral hydroceles, small volume, right greater than the left. Prominent pampiniform plexus without overt varicocele. Simple cysts, both epididymal heads Electronically signed by: Kyle Ga MD 08/22/2024 11:57 AM EDT
--- NOTE | 2024-08-22 09:53 | ED.MALEGU ---
HPI - Male Genitourinary General Chief complaint: Urogenital-Male Stated complaint: Testicular pain Time Seen by Provider: 08/22/24 09:47 Source: patient, old records reviewed and translator and interpreter Mode of arrival: ambulatory Limitations: no limitations History of Present Illness ED Provider: JUAN MIGUEL GARCIA Narrative: 59 yo male with PMH of DM, GERD, HLD, HTN, kidney stones here with c/o bilateral testicular pain and itching of the penis. Patient states symptoms began approximately 1 week ago and has worsened in intensity prompting him to seek care this morning. He states he is also experiencing an increase of urinary frequency and reports his blood glucose levels are not controlled at this time stating his glucose levels are usually around 215-220. He denies recent trauma or increased activity precipitating testicular pain, penile discharge, painful urination, urinary hesitancy, hematuria, fever, chest pain, SOB, nausea, vomiting. MD Complaint: testicle pain and other (pruritis of glans ) Onset (ago): week(s) Duration: constant Location: penis, right testicle and left testicle Severity: mild Quality: aching Relieving factors: none Exacerbating factors: none Associated symptoms: Reports denies other symptoms Related Data Previous Rx's ?Medication ?Instructions ?Recorded losartan 50 mg tablet 50 mg PO DAILY 90 days #90 tabs 01/21/21 bisacodyl 5 mg tablet,delayed 10 mg (2 x 5 mg) PO ONCE 08/30/22 release (Dulcolax (bisacodyl)) colonoscopy prep 1 day #2 tabs polyethylene glycol 3350 17 238 g PO ONCE 1 day #238 grams 08/30/22 gram/dose oral powder (Miralax) acetaminophen 500 mg capsule 1,000 mg (2 x 500 mg) PO Q6H PRN 06/27/23 pain #30 caps celecoxib 100 mg capsule 100 mg PO BID #30 caps 06/27/23 atorvastatin 80 mg tablet 80 mg PO BEDTIME 90 days #90 tabs 12/21/23 metformin 1,000 mg tablet 1,000 mg PO ONCE 90 days #90 tabs 01/23/24 lancets 28 gauge (FreeStyle #50 ea 01/29/24 Lancets) aspirin 81 mg chewable tablet 1 tab PO DAILY #90 tabs 03/18/24 atenolol 50 mg tablet 50 mg PO DAILY #90 tabs 03/18/24 gabapentin 800 mg tablet 800 mg PO TID #90 tabs 06/24/24 blood sugar diagnostic (FreeStyle #50 ea 07/02/24 Lite Strips) blood-glucose sensor (FreeStyle #2 ea 08/19/24 Rakan 3 Plus Sensor device) blood-glucose,medical affairs specialist,cont #1 ea 08/19/24 (FreeStyle Rakan 3 [place]) dulaglutide 3 mg/0.5 mL 3 mg (0.5 mL) subcut QWEEK 28 days 08/19/24 subcutaneous pen injector #2 mL (Trulicity) empagliflozin 10 mg tablet 10 mg PO DAILY 30 days #30 tabs 08/19/24 (Jardiance) insulin glargine 100 unit/mL (3 10 unit (0.1 mL) subcut QPM 30 08/19/24 mL) subcutaneous pen (Lan days #3 mL Solostar U-100 Insulin) pen needle, diabetic 32 gauge x #50 ea 08/19/2432 clotrimazole 1 % topical cream 1 appl topical BID 10 days #30 08/22/24 grams mupirocin 2 % topical ointment 1 appl topical BID 7 days #15 grams 08/22/24 Allergies Allergy/AdvReac Type Severity Reaction Status Date / Time No Known Allergies Allergy Verified 08/22/24 10:18 Review of Systems Review of Systems: Constitutional : No Weight loss, No Fever, No Chills ENT/Mouth : No sore throat, No Rhinorrhea Eyes: No Swelling, No Redness Cardiovascular : No Chest Pain, No SOB, No Edema Respiratory : No Cough, No Sputum, No Wheezing Gastrointestinal : Positive Nausea, Positive Vomiting, positive abdominal Pain, No Hematochezia, No Melena, no diarrhea Genitourinary : No Dysuria, Positive polyuria, Positive pruritic glans, positive pain in bilateral testicles, No Hematuria, No Urgency, no penile discharge, Musculoskeletal : No joint pain, No Myalgias, No Joint Swelling Skin : No Skin Lesions, No rash Neuro : No Weakness, No Numbness, No Dizziness, No Headache Psych : No Anxiety/Panic, No Depression Heme/Lymph: No Bruising, No Lymphadenopathy Endocrine : Positive Polyuria, No Polydipsia Yes all other systems are reviewed and are negative [facility] Past Medical History Attestation statement: The following information was validated with the patient. Source: old records reviewed Medical History Hypogonadism in male Atypical chest pain Cigarette smoker Diabetes mellitus with diabetic neuropathy Heartburn Vitamin D deficiency HLD (hyperlipidemia) HTN (hypertension) T2DM (type 2 diabetes mellitus) Diabetes type 2, uncontrolled Surgical History Hx of eye surgery Hx of colonoscopy Family History Family History Father Diabetes mellitus Mother HTN (hypertension) Social History Social History Household Members: Children Housing: Apartment Alcohol intake: current Alcohol intake frequency: holidays/special occasions only Patient Tobacco Use Status: Current someday Tobacco user Cigarettes Per Day: 3 e-Cigarette/Vaping Use: Never Used Advance Directives: Yes Advance Directives Information Provided: Yes Advance Directives on File: No Current occupational status: unemployed Cognitive needs: No Hearing needs: No Vision needs: No Physical Exam Vital Signs: Vital Signs: Last Vital Signs Temp 97.9 F 08/22/24 10:15 Pulse 81 08/22/24 10:15 Resp 16 08/22/24 10:15 BP 129/84 08/22/24 10:15 Pulse Ox 96 08/22/24 10:15 O2 Del Method Room Air 08/22/24 10:15 BMI result Body Mass Index 29.5 Appearance: Alert. Oriented X3. No acute distress. Eyes: Pupils equal, round and reactive to light. ENT: Pharynx normal. Neck: Normal inspection. Neck supple. CVS: Normal heart rate and rhythm. Pulses normal. Respiratory: No respiratory distress. Breath sounds normal. Abdomen: Soft and nontender. : Pain of proximal spermatic cord on palpation, erythema of glans penis, foreskin intact and retractable, no penile discharge seen at meatus, ro rashes, lesions observed. Skin: Skin warm and dry. Normal skin color. Normal skin turgor. Extremities: No lower extremity edema. No calf ttp Neuro: Oriented X 3. No motor deficit. No sensory deficit. CN2-12 intact Medical Decision Making Medical Decision Making MDM Narrative: 59 yo male with PMH of DM, GERD, HLD, HTN, kidney stones here with c/o bilateral testicular pain and itching of the penis. Patient states his glucose levels are not controlled at this time and usually runs between 215-220. At this time ordered basic labs, UA, Scrotal US. Suspect balanitis due to uncontrolled glucose levels with possible epididymitis since PE observes pain with palpation of proximal spermatic cord. Foreskin intact and is easily retractable ruling out phimosis. Glans penis is slightly erythematous, no evidence of penile exudates or discharge from meatus. No rash, lesions, edema of shaft. Awaiting US results to observe for epididymitis and to R/O testicular torsion which is less likely as cremasteric reflex intact, no evidence of high riding testicle, and no associated nausea/vomiting, patient is able to relax calmly on hospital bed. Differential Diagnosis Differential Diagnoses: The differential diagnosis associated with the presentation includes Testicular torsion Epididymitis Balanitis Phimosis Admission/Observation Consideration of admission/observation: Escalation of care including admission/observation considered work up other than elevated sugar normal no DKA US reassuring start on clotrimazole and mupirocin Lab Data MDM Lab Attestation statement: I reviewed the patient's lab results. 08/22/24 10:12 08/22/24 10:12 Labs: Lab Results 08/22/24 08/22/24 Range/Units 10:12 10:42 WBC 12.1 H (4.8-10.8) X10*3/uL RBC 4.55 L (4.60-5.80) X10*6/uL Hgb 14.5 (14.0-18.0) g/dl Hct 42.1 (42.0-52.0) % MCV 92.5 (80.0-98.0) fL MCH 31.9 (27.0-33.0) pg MCHC 34.4 (31.0-36.0) g/dl RDW 12.5 (11.0-16.0) % Plt Count 219 (160-400) X10*3/uL MPV 11.2 (9.4-12.4) fL Immature Gran % (Auto) 0.3 (0.0-0.4) % Neut % (Auto) 46.4 (45-73) % Lymph % (Auto) 16.9 L (20-40) % [place] % (Auto) 4.5 (2-11) % Eos % (Auto) 31.7 H (0-4) % Baso % (Auto) 0.2 (0-2) % Lymph # (Auto) 2.0 (1.2-4.9) X10*3/uL [place] # (Auto) 0.6 (0.1-1.2) X10*3/uL Eos # (Auto) 3.8 H (0.0-0.4) X10*3/uL Baso # (Auto) 0.0 (0.0-0.2) X10*3/uL Abs Immat Gran (auto) 0.04 H (0.00-0.03) X10*3/uL Absolute Neuts (auto) 5.6 (2.0-8.3) x10*3/uL Absolute Nucleated RBC 0.000 (0.0-0.012) X10*3/uL Nucleated RBC % (auto) 0.0 (0.0-0.2) /100WBC Smear Tech's Comments VERIFIED Sodium 139 (135-145) mmol/L Potassium 4.8 D (3.3-5.1) mmol/L Chloride 104 (96-108) mmol/L Carbon Dioxide 25 (22-29) mmol/L Anion Gap 15 (12-20) BUN 17 H (9-16) mg/dL Creatinine 1.05 (0.5-1.4) mg/dL Estim Creat Clear Calc 80.0 Estimated GFR > 60 Random Glucose 354 H* (60-115) mg/dL Calcium 9.3 (8.4-10.2) mg/dL Magnesium 1.8 (1.6-2.6) mg/dL Total Bilirubin 0.3 (0.0-1.0) mg/dL Direct Bilirubin 0.1 (0.0-0.5) mg/dL AST 21 (5-37) U/L ALT 32 (0-40) U/L Alkaline Phosphatase 112 (39-117) U/L Total Protein 6.6 (6.5-8.0) g/dL Albumin 4.3 (3.5-5.0) g/dL Urine Color Yellow Urine Appearance Clear Urine pH 5.5 (5.0-9.0) Ur Specific [place] >= 1.030 H (1.005-1.025) Urine Protein Negative (Neg-Trace) mg/dL Urine Glucose (UA) >=1000 H (Negative) mg/dL Urine Ketones Negative (Negative) mg/dL Urine Blood Negative (Negative) Urine Nitrite Negative (Negative) Ur Leukocyte Esterase Negative (Negative) Urine RBC 0-2 (0-2) /HPF Urine WBC 0-5 (0-5) /HPF Ur Squamous Epith Cells 0-2 (0-2) /HPF Urine Bacteria None Seen (None Seen) Hyaline Casts 0-2 (0-2) /LPF Independent Interpretation I performed an independent interpretation of an: Ultrasound (hydrocele) Radiology Impression Discussion of test interpretation with radiology: I have reviewed the radiologist's reading. Independent Historian Clinical information obtained from an independent historian. History obtained from or confirmed by: Other External Record Review External record reviewed: Inpatient record and Outpatient record Prescription Management I considered prescription management with: Antibiotic and Other Chronic Conditions Patient?s care impacted by: Diabetes Discharge Plan Discharge Clinical Impression: Elevated blood sugar, Balanitis Patient Disposition: Home, Self-Care Instructions: Balanitis (ED), Diabetic Hyperglycemia (ED) Additional Instructions: labs and urine normal ultrasound reassuring use medications as discussed clotrimazole twice a day then wait one hour and use muporicin return for worsening rash, pain, fevers, unable to urinate please monitor your blood sugars better and call your primary care doctor to get better control of sugars Prescriptions: New mupirocin 2 % ointment 1 appl topical BID 7 Days Qty: 15 0RF clotrimazole 1 % cream 1 appl topical BID 10 Days Qty: 30 0RF No Action atorvastatin 80 mg tablet 80 mg PO BEDTIME 90 Days Qty: 90 3RF (DME) lancets [FreeStyle Lancets] 28 gauge misc See Rx Instructions .Route Qty: 50 4RF Rx Instructions: As directed test once a day aspirin 81 mg tablet,chewable 1 tab PO DAILY Qty: 90 1RF atenolol 50 mg tablet 50 mg PO DAILY Qty: 90 1RF gabapentin 800 mg tablet 800 mg PO TID Qty: 90 1RF (DME) FreeStyle Lite Strips Strip See Rx Instructions .Route Qty: 50 4RF Rx Instructions: As directed test once a day losartan 50 mg tablet 50 mg PO DAILY 90 Days Qty: 90 2RF acetaminophen 500 mg capsule 1,000 mg PO Q6H PRN (Reason: pain) Qty: 30 0RF celecoxib 100 mg capsule 100 mg PO BID Qty: 30 0RF bisacodyl [Dulcolax (bisacodyl)] 5 mg tablet,delayed release (DR/EC) 10 mg PO ONCE 1 Days Qty: 2 0RF Rx Instructions: Take 2 tablets by mouth at 12:00pm the day before your procedure. polyethylene glycol 3350 [Miralax] 17 gram/dose powder 238 g PO ONCE 1 Days Qty: 238 0RF Rx Instructions: Take as directed by mouth the day before your procedure. metformin 1,000 mg tablet 1,000 mg PO ONCE 90 Days Qty: 90 2RF Jardiance 10 mg tablet 10 mg PO DAILY 30 Days Qty: 30 11RF Trulicity 3 mg/0.5 mL pen injector 3 mg subcut QWEEK 28 Days Qty: 2 11RF insulin glargine [Lantus Solostar U-100 Insulin] 100 unit/mL (3 mL) insulin pen 10 unit subcut QPM 30 Days Qty: 3 6RF (DME) pen needle, diabetic 32 gauge x 5/32 needle See Rx Instructions .ROUTE .MEDSUPPLY Qty: 50 6RF Rx Instructions: As directed daily (DME) FreeStyle Rakan 3 Plus Sensor Device See Rx Instructions .ROUTE .MEDSUPPLY Qty: 2 11RF Rx Instructions: As directed every 15 days (DME) FreeStyle Rakan 3 [place] Misc See Rx Instructions .ROUTE .MEDSUPPLY Qty: 1 0RF Rx Instructions: As directed every 15 days Print Language: Czech
[2024-08-22 10:15] VITALS: BP 129/84; PULSE 81; RESP 16; TEMP 36.6; O2SAT 96; BMI 29.5
[2024-08-22 10:22] LABS: Basophils Percent Auto 0.2 % (0-2); Eosinophils Absolute Auto 3.8 X10*3/uL (0.0-0.4); Eosinophils Percent Auto 31.7 % (0-4); Hematocrit 42.1 % (42.0-52.0); Hemoglobin 14.5 g/dl (14.0-18.0); Imm Gran Abs Auto 0.04 X10*3/uL (0.00-0.03); Imm Gran Pct Auto 0.3 % (0.0-0.4); Lymphocytes Percent Auto 16.9 % (20-40); MANUAL DIFF FLAG SCAN; Mean Corpuscular HGB Conc 34.4 g/dl (31.0-36.0); Mean Corpuscular Hemoglobin 31.9 pg (27.0-33.0); Mean Corpuscular Volume 92.5 fL (80.0-98.0); Mean Platelet Volume 11.2 fL (9.4-12.4); Monocytes Absolute Auto 0.6 X10*3/uL (0.1-1.2); Monocytes Percent Auto 4.5 % (2-11); Neutrophils Absolute Auto 5.6 x10*3/uL (2.0-8.3); Neutrophils Percent Auto 46.4 % (45-73); Platelet Count 219 X10*3/uL (160-400); Red Blood Count 4.55 X10*6/uL (4.60-5.80); Red Cell Distribution Width 12.5 % (11.0-16.0); SCAN SMEAR FLAG 1; White Blood Count 12.1 X10*3/uL (4.8-10.8)
[2024-08-22 10:40] LABS: Albumin Level 4.3 g/dL (3.5-5.0); Alkaline Phosphatase 112 U/L (39-117); Anion Gap 15 (12-20); Aspartate Amino Transferase 21 U/L (5-37); Bilirubin Direct 0.1 mg/dL (0.0-0.5); Bilirubin Total 0.3 mg/dL (0.0-1.0); Blood Urea Nitrogen 17 mg/dL (9-16); Calcium 9.3 mg/dL (8.4-10.2); Carbon Dioxide 25 mmol/L (22-29); Chloride 104 mmol/L (96-108); Estimated Glomerular Filt Rate > 60; Glucose Random 354 mg/dL (60-115); Magnesium 1.8 mg/dL (1.6-2.6); Potassium 4.8 mmol/L (3.3-5.1); Sodium 139 mmol/L (135-145); Total Protein 6.6 g/dL (6.5-8.0)
[2024-08-22 10:54] LABS: SLIDE REVIEW VERIFIED
[2024-08-22 10:54] LABS: Appearance Urine Clear; Color Urine Yellow; Glucose Urine UA >=1000 mg/dL (Negative); Leukocyte Esterase Urine Negative (Negative); Nitrite Urine Negative (Negative); PH 5.5 (5.0-9.0); Specific Gravity - Urine >= 1.030 (1.005-1.025); UMIC TRIGGER UACC YES; Urine Blood Negative (Negative); Urine Ketones Negative (Negative); Urine Protein Negative (Neg-Trace)
[2024-08-22 11:01] LABS: Bacteria Urine None Seen (None Seen); Hyaline Casts Urine 0-2 /LPF (0-2); RBC Urine 0-2 /HPF (0-2); Squamous Epithelial Cell Urine 0-2 /HPF (0-2); WBC Urine 0-5 /HPF (0-5)
[2024-08-22 11:17] LABS: Alanine Aminotransferase 32 U/L (0-40)
[2024-08-22 12:33] VITALS: BP 129/83; PULSE 78; RESP 16; TEMP 36.6; O2SAT 97
== END 2024-08-22 12:33 | disposition home or self-care (01) ==
PROVIDERS: Emergency Provider Emergency Medicine; PCP Internal Medicine
DX: R35.0 Frequency of micturition (principal); E11.9 Type 2 diabetes mellitus without complications; I10 Essential (primary) hypertension; E78.5 Hyperlipidemia, unspecified
CPT/HCPCS: 36415; 76870; 80048; 80076; 81001; 83735; 85025; 93975; 99283; 99284

== ENCOUNTER → 2024-08-22 10:00 | Outpatient (BNV) | payer OTHER, SELFPAY | PROVIDERS: Emergency Provider Emergency Medicine; PCP Internal Medicine; Visit Provider Radiology Diagnostic Radiology | DX: N43.3 Hydrocele, unspecified (principal); N50.3 Cyst of epididymis | CPT/HCPCS: 93975 ==

== ENCOUNTER 2024-08-26 08:55 | Outpatient (AMB) | payer OTHER, SELFPAY ==
--- NOTE | 2024-08-26 09:08 | A.OFFVIS_ITS ---
Intake Intake Visit Reasons: T2DM Grain Oilseed Or Pasture Grower Required: Yes Grain Oilseed Or Pasture Grower Language: Injection Mold Tooling Technician Name: [facility] [place]ompanied by: Daughter Allergies No Known Allergies Allergy (Verified 08/22/24 10:18) HPI Comprehensive Diabetes Asmnt General Diabetes type type 2 Date of last diabetes education 11/22/23 Date of last retinal or dilated eye exam 09/27/23 Most Recent Diabetes Results: Microalb/Creat Ratio 22.6 ug/mg cr (<30) 08/20/24 Cholesterol 118 mg/dL (<200) 08/20/24 HDL Cholesterol 33 mg/dL (>40) L 08/20/24 Triglycerides 223 mg/dL (<150) H 08/20/24 Creatinine 1.05 mg/dL (0.5-1.4) 08/22/24 Blood Urea Nitrogen 17 mg/dL (9-16) H 08/22/24 Sodium 139 mmol/L (135-145) 08/22/24 Potassium 4.8 mmol/L (3.3-5.1) 08/22/24 Chloride 104 mmol/L (96-108) 08/22/24 Carbon Dioxide 25 mmol/L (22-29) 08/22/24 Calcium 9.3 mg/dL (8.4-10.2) 08/22/24 AST 21 U/L (5-37) 08/22/24 ALT 32 U/L (0-40) 08/22/24 Total Protein 6.6 g/dL (6.5-8.0) 08/22/24 Albumin 4.3 g/dL (3.5-5.0) 08/22/24 PFSH Medical History Hypogonadism in male Atypical chest pain Cigarette smoker Diabetes mellitus with diabetic neuropathy Heartburn Vitamin D deficiency HLD (hyperlipidemia) HTN (hypertension) T2DM (type 2 diabetes mellitus) Diabetes type 2, uncontrolled Surgical History Hx of eye surgery Hx of colonoscopy Family History Father Diabetes mellitus Mother HTN (hypertension) Social History Household Members: Children Housing: Apartment Alcohol intake: current Alcohol intake frequency: holidays/special occasions only Patient Tobacco Use Status: Current someday Tobacco user Cigarettes Per Day: 3 e-Cigarette/Vaping Use: Never Used Current occupational status: unemployed Cognitive needs: No Hearing needs: No Vision needs: No Assessment & Plan Assessment & Plan (1) Diabetes type 2, uncontrolled: Code(s): E11.65 - Type 2 diabetes mellitus with hyperglycemia Plan: Patient at visit to set up an insert Freestyle Rakan 3+ with reader Instructed patient sensors water proof you can shower, or swim do not submerge sensor in water for over 30 minutes Is sensor falls off cannot put back in you need to replace sensor, customer service number given to patient for sensor replacement Sensor placed on the back of Right arm Patient left visit with sensor in warmup Reviewed how to interpret trend arrows Discussed lag time between finger stick and sensor data.? Instructed patient the importance of having blood glucometer for backup testing if needed Reviewed delay of CGM from fingersticks Reminded Pt that if symptoms do not match sensor still needs to check fingersticks. Patient reports he started Lantus 10 units daily on 08/21/2024, stated at visit he has no questions on how to set up insulin pen as he has been on insulin in the past. Patient has follow-up appointment with endocrine ARM REST BUILDER on 09/16/2024, will follow-up with inclusion paraeducator in 2 months Portions of this note were created using voice recognition software, please excuse any words or phrases that may have been misinterpreted. Patient Instructions: Instrucciones para el paciente: CGM proporciona informaci?n sobre el control de la glucosa en cherrie a lo deon del d?a, incluidas la hiperglucemia y la hipoglucemia. Contin?e controlando la glucosa en cherrie seg?n las instrucciones. Siga las pautas de nutrici?n proporcionadas. Informe cualquier molestia de inmediato al proveedor de atenci?n m?dica. Mantente kya hidratado. Puede ba?arse, ducharse, nadar y hacer ejercicio mientras usa el sensor de glucosa. No sumerja el sensor de glucosa en agua wil m?s de 30 minutos. Retire el sensor para torrie resonancia magn?brian o torrie tomograf?a computarizada. Evite la m?quina de gee X en los aeropuertos: retire el sensor o solicite la varita Coding Level of Care Code Est Pt Level 1 (81821) Diagnoses Diabetes type 2, uncontrolled E11.65
== END 2024-08-26 09:30 | disposition home or self-care (01) ==
LOC: HO.ENCR 08:56
PROVIDERS: PCP Internal Medicine; Visit Provider Registered Nurse Diabetes Educator
DX: E11.65 Type 2 diabetes mellitus with hyperglycemia (principal)

== ENCOUNTER → 2024-08-26 08:55 | Outpatient (BNVA) | payer OTHER, SELFPAY | PROVIDERS: PCP Internal Medicine; Visit Provider Registered Nurse Diabetes Educator | DX: E11.65 Type 2 diabetes mellitus with hyperglycemia (principal) | CPT/HCPCS: 99211 ==

== ENCOUNTER 2024-09-16 08:43 | Outpatient (AMB) | payer OTHER, SELFPAY ==
--- NOTE | 2024-09-16 09:08 | A.OFFPC_ITS ---
Vital Signs 09/16/24 09:14 Height 5 ft 7 in Weight 193 lb BMI 30.2 BP 142/94 H Blood Pressure Location Lt brachial Position Sitting Pulse 81 Pulse Source Pulse Oximeter Temp 98.3 F Temp Source Oral Pulse Oximetry (%) 98 Oxygen Delivery Method Room Air Intake Visit Reasons: PE Intake Note: Pt is here today for his PE Leaf Stripper Required: Yes Leaf Stripper Name: Mary # [id number] Information Interpreted: clinical only Allergies No Known Allergies Allergy (Verified 09/16/24 09:30) Medication List - Last Reconciled 09/16/24 by Heather Garibay MD acetaminophen 1,000 mg (2 x 500 mg) PO Q6H PRN aspirin 1 tab PO DAILY atenolol 50 mg PO DAILY atorvastatin 80 mg PO BEDTIME 90 days blood sugar diagnostic (FreeStyle Lite Strips) As directed test once a day blood-glucose sensor (FreeStyle Rakan 3 Plus Sensor device) As directed every 15 days blood-glucose,network operations project manager,cont (FreeStyle Rakan 3 [place]) As directed every 15 days clotrimazole 1% 1 appl topical BID 10 days dulaglutide (Trulicity) 3 mg (0.5 mL) subcut QWEEK 28 days empagliflozin (Jardiance) 10 mg PO DAILY 30 days gabapentin 800 mg PO TID insulin glargine (Lantus Solostar U-100 Insulin) 10 units (0.1 mL) subcut QPM 30 days lancets (FreeStyle Lancets) As directed test once a day losartan 50 mg PO DAILY 90 days metformin 1,000 mg PO ONCE 90 days mupirocin 2% 1 appl topical BID 7 days pen needle, diabetic As directed daily Tobacco use date assessed: 09/16/24 Dental Screening Dental Screen Date: 09/16/24 Did you have a dental visit in the last 12 months?: No Did you have a dental problem in the last 6 months where you did not have access to dental care?: No Was dental information given to patient?: No HPI PE HPI Details 59-year-old male with history of hyperli pidemia, hypertension, hypogonadism, and type 2 diabetes mellitus with diabetic neuropathy, followed by Dr. Jones, hypogonadism in male, here today for his physical exam. He states that he had a screening colonoscopy done several years ago, was seen at the GI clinic in 2022 to be scheduled for repeat colonoscopy again but sima larson did not follow through. [facility] Medical History Hypogonadism in male Atypical chest pain Cigarette smoker Diabetes mellitus with diabetic neuropathy Heartburn Vitamin D deficiency HLD (hyperlipidemia) HTN (hypertension) T2DM (type 2 diabetes mellitus) Diabetes type 2, uncontrolled Surgical History Hx of eye surgery Hx of colonoscopy Family History Father Diabetes mellitus Mother HTN (hypertension) Social History (Updated 09/16/24 @ 09:45 by Heather Garibay MD) Household Members: Children Housing: Apartment Alcohol intake: current Alcohol intake frequency: holidays/special occasions only Patient Tobacco Use Status: Current someday Tobacco user Tobacco use type: Cigarette Cigarette Packs Per Day: 1 e-Cigarette/Vaping Use: Never Used Current occupational status: unemployed Cognitive needs: No Hearing needs: No Vision needs: No Questionnaire PHQ-9 Over the last 2 weeks, how often have you been bothered by any of the following problems? 1. Little interest or pleasure in doing things: several days 2. Feeling down, depressed, or hopeless: not at all 3. Trouble falling or staying asleep, or sleeping too much: not at all 4. Feeling tired or having little energy: several days 5. Poor appetite or overeating: not at all 6. Feeling bad about yourself - or that you are a failure or have let yourself or your family down: not at all 7. Trouble concentrating on things, such as reading the newspaper or watching television: not at all 8. Moving or speaking so slowly that other people could have noticed. Or the opposite - being so fidgety or restless that you have been moving around a lot more than usual: not at all 9. Thoughts that you would be better off or of hurting yourself in some way: not at all Total score: 2 Depression Screening Interpretation: Negative Depression Screening Done: Yes 77954 - PHQ-9 Billing: Yes Source: Developed by Drs. Lucio Avilez, Sofie Andrews, Vishal Evangelista and colleagues, with an educational padmini from [employer]. Thrive Questionnaire Date Thrive assessed: 09/16/24 I am a: Parent/Caregiver What is your living situation today?: I do not have a steady places to live I am temporarily staying with others Within the past 12 months, did the food you bought not last and you didn't have the money to get more?: Never true Within the past 12 months, did you worry whether your food would run out before you got money to buy more?: Never true Do you have trouble paying for medicines?: No Do you have trouble getting transportation to medical appointments?: No Do you have trouble paying your heating and electricity bill?: No Do you have trouble taking care of your child, family member or friend?: No Do you have trouble with day-to-day activities such as bathing, preparing meals, shopping, managing finances, etc.?: No Are you currently unemployed and looking for a job?: Yes Are you interested in more education?: No Please select the resources that you would like help with: Housing/[facility] and Transportation Currently or been in a relationship where the following occur: I choose not to answer THRIVE Score: 1 AUDIT C Alcohol Use Questionnaire (AUDIT-C) 1. How often do you have a drink containing alcohol?: Monthly or less 2. How many drinks containing alcohol do you have on a typical day when you are drinking?: 10 or more 3. How often do you have six or more drinks on one occasion?: Monthly Total Score: 7 MIKA-7 AMB Questionnaire MIKA-7 Date MIKA - 7 assessed: 09/16/24 Feeling nervous, anxious, or on edge: 1 = Several days Not being able to stop or control worryin = Several days Worrying too much about different things: 1 = Several days Trouble relaxin = Not at all Being so restless that it is hard to sit still: 0 = Not at all Becoming easily annoyed or irritable: 0 = Not at all Feeling afraid as if something awful might happen: 0 = Not at all Total MIKA-7 score (0-4 normal; 5-9 mild; 10-14 moderate; 15-21 severe): 3 Source: Developed by Drs. Lucio Avilez, Sofie Andrews, Vishal Evangleista and colleagues, with an educational padmini from [employer]. Physical exam (Primary Care) Vital Signs: Last Vital Signs Temp 98.3 F 09/16/24 09:14 Pulse 81 09/16/24 09:14 BP 142/94 H 09/16/24 09:14 Pulse Ox 98 09/16/24 09:14 Oxygen Delivery Method Room Air 09/16/24 09:14 BMI result Body Mass Index 30.2 Tobacco/Smoking Status: Tobacco use Status Tobacco use date assessed 09/16/24 09/16/24 09:22 Patient Tobacco Use Status Current someday Tobacco 09/16/24 09:45 Tobacco use type Cigarette 09/16/24 09:45 e-Cigarette/Vaping Use Never Used 09/16/24 09:45 PHQ-9: PHQ-9 Score PHQ-9: Total score 2 09/16/24 10:16 Depression Screening Interpretation: Negative Thrive Assessment: Date of Thrive Assessment Date Thrive assessed 09/16/24 09/16/24 09:22 Currently or been in a relationship where the following occur: I choose not to answer Immunizations pneumoc 20-clara conj-dip cr(PF) 0.5 mL IM syringe Performing Provider: Heather Garibay MD Performing Location[place] [facility] [place] [facility] Administered by: Edelmira Sandoval CMA on 09/16/24 10:16 Dose Route Admin Location Dispensed Lot Number Expiration Date [facility] Hvac Maintenance Technician 0.5 mL IM Right Deltoid 0.5 mL [id number] 07/21/25 [id number] [employer]PFIZER VIS Given Date VIS Provided VIS Publication Date 09/16/24 Single Vaccine 21 Eligibility Eligibility Date Funding Source Not [facility] Eligible 09/16/24 Private Coding Diagnoses Hypertension, unspecified type I10 Hypertension type: unspecified Diabetes mellitus with diabetic neuropathy E11.40 Hyperlipidemia, unspecified hyperlipidemia type E78.5 Hyperlipidemia type: unspecified Additional Codes PHQ-9 - 68944 - PHQ-9 Billing: Yes ([id number]) Assessment & Plan Assessment & Plan (1) HTN (hypertension): Code(s): I10 - Essential (primary) hypertension Category: Medical Qualifiers: Hypertension type: unspecified Qualified Code(s): I10 - Essential (primary) hypertension (2) Diabetes mellitus with diabetic neuropathy: Code(s): E11.40 - Type 2 diabetes mellitus with diabetic neuropathy, unspecified Category: Medical (3) HLD (hyperlipidemia): Code(s): E78.5 - Hyperlipidemia, unspecified Category: Medical Qualifiers: Hyperlipidemia type: unspecified Qualified Code(s): E78.5 - Hyperlipidemia, unspecified Orders: Orders Pneumococcal 20 Immunization Today Z23 - Encounter for immunization Basic Metabolic Panel Fasting 02/21/25 E11.40 - Type 2 diabetes mellitus with diabetic neuropathy, unspecified, E78.5 - Hyperlipidemia, unspecified, I10 - Essential (primary) hypertension Lipid Panel 02/21/25 E11.40 - Type 2 diabetes mellitus with diabetic neuropathy, unspecified, E78.5 - Hyperlipidemia, unspecified, I10 - Essential (primary) hypertension Alanine Aminotransferase 02/21/25 E11.40 - Type 2 diabetes mellitus with diabetic neuropathy, unspecified, E78.5 - Hyperlipidemia, unspecified, I10 - Essential (primary) hypertension Aspartate Amino Transferase 02/21/25 E11.40 - Type 2 diabetes mellitus with diabetic neuropathy, unspecified, E78.5 - Hyperlipidemia, unspecified, I10 - Essential (primary) hypertension Referrals Podiatry Referral E11.40 - Type 2 diabetes mellitus with diabetic neuropathy, unspecified Medications: New losartan 100 mg PO DAILY 90 tabs 1RF I10 - Essential (primary) hypertension varenicline tartrate PO PER PKG DIR 53 ea 0RF Discontinued losartan Discontinued Reason: Doctor's Order 50 mg PO DAILY 90 days 90 tabs 2RF I10 - Essential (primary) hypertension
[2024-09-16 09:14] VITALS: BP 142/94; PULSE 81; TEMP 36.8; O2SAT 98; BMI 30.2
== END 2024-09-16 10:22 | disposition home or self-care (01) ==
LOC: HO.HMCC 08:44
PROVIDERS: PCP Internal Medicine; Visit Provider Internal Medicine
DX: Z23 Encounter for immunization (principal)

== ENCOUNTER → 2024-09-16 08:43 | Outpatient (BNVA) | payer OTHER, SELFPAY | PROVIDERS: PCP Internal Medicine; Visit Provider Internal Medicine | DX: Z00.01 Encounter for general adult medical examination with abnormal findings (principal); E78.5 Hyperlipidemia, unspecified; E11.65 Type 2 diabetes mellitus with hyperglycemia; E11.40 Type 2 diabetes mellitus with diabetic neuropathy, unspecified; I10 Essential (primary) hypertension; E29.1 Testicular hypofunction; F17.210 Nicotine dependence, cigarettes, uncomplicated; Z23 Encounter for immunization; Z79.899 Other long term (current) drug therapy | CPT/HCPCS: 82947; 90471; 90677; 96127; 99212; 99396 ==

== ENCOUNTER 2024-09-16 10:37 | Outpatient (AMB) | payer OTHER, SELFPAY ==
--- NOTE | 2024-09-16 07:28 | A.OFFVIS_ITS ---
Vital Signs 09/16/24 10:39 09/16/24 11:02 Height 5 ft 7 in Weight 191 lb 12.835 oz BMI 30.0 BP 142/82 H 124/76 Blood Pressure Location Rt brachial Rt brachial Position Sitting Sitting Pulse 85 Pulse Source Pulse Oximeter Pulse Oximetry (%) 98 Oxygen Delivery Method Room Air Intake Visit Reasons: T2DM Intake Note: Patient presents today for a follow-up on Type 2 Diabetes Mellitus: Last Diabetic eye exam was on: 09/2023 Last Podiatry exam was on: Patient does not see a Highway Patrol Pilot Most recent HbA1c: 10.6%, 08/19/2024 Random Glucose- 103 mg/dL, Today Glass Forming Engineer Required: Yes Glass Forming Engineer Language: Admitting Representative Services: Glass Forming Engineer Present Glass Forming Engineer Name: ASHLEIGH Porras/CHAVA WANG Information Interpreted: non-clinical & clinical Allergies No Known Allergies Allergy (Verified 09/16/24 09:30) HPI Comments Details: 59 YO M with PMHx T2DM, HTN, HLD who is seen in F/U for T2DM. . Patient last seen 08/19/24 at which time his A1c was 10.6% substantially elevated since his last check. Initially diagnosed with T2DM in 2011 when he presented with DKA/HHS. Was initially started on treatment with insulin at the time of diagnosis. He had remained on low-dose Lantus once daily insulin ever since until initial endocrine visit at which time he was noted to be having frequent, daily am low sugars. His insulin was stopped at that time. Current regimen: Lantus 10 units daily Metformin 1000 mg PO BID Trulicity 3.0 mg Qwkly Jardiance 10 mg PO daily Freestyle rakan sensor 3 average glucose: 135 14 day continuous glucose sensor report reviewed With no lows Family history of T2DM in his Father and Brother. No retinopathy, has vitromacular adhesion. [facility] 05/2024. has appt scheduled in a month Has Neuropathy, does not see podiatry. On gabapentin occ pain he is waiting to hear from new human resources partner No Nephropathy, on Losartan 25 mg PO daily. urine microalbumin 19.0 eGFR >60 06/2023 Has HLD, on Atorvastatin 40 mg PO qHS. LDL 67 06/2023 1 He has had no further chest pain. He does have some problems with acid reflux for which he is having testing for. This is not increased since starting Trulicity. Has a heavy smoker complains of heaviness in his right leg. He has an arterial Doppler scheduled next month Diet: Eats 3 meals often eats sweets and larger portions of carbohydrates Weight: Down 5 lb since last visit Has seen [facility] the [facility] Medical History Hypogonadism in male Atypical chest pain Cigarette smoker Diabetes mellitus with diabetic neuropathy Heartburn Vitamin D deficiency HLD (hyperlipidemia) HTN (hypertension) T2DM (type 2 diabetes mellitus) Diabetes type 2, uncontrolled Surgical History Hx of eye surgery Hx of colonoscopy Family History Father Diabetes mellitus Mother HTN (hypertension) Social History (Updated 09/16/24 @ 09:45 by Heather Garibay MD) Household Members: Children Housing: Apartment Alcohol intake: current Alcohol intake frequency: holidays/special occasions only Patient Tobacco Use Status: Current someday Tobacco user Tobacco use type: Cigarette Cigarette Packs Per Day: 1 e-Cigarette/Vaping Use: Never Used Current occupational status: unemployed Cognitive needs: No Hearing needs: No Vision needs: No Physical Exam Vital Signs: Last Vital Signs Pulse 85 09/16/24 10:39 BP 124/76 09/16/24 11:02 Pulse Ox 98 09/16/24 10:39 Oxygen Delivery Method Room Air 09/16/24 10:39 BMI result Body Mass Index 30.0 Const Other: * Absence of Cushingoid features. Absence of acromegalic features. Neck exam reveals nl size thyroid about 15 gms. No thyroid nodules palpable. Heart S1 S2, Reg R/R. No M/R G. Skin exam reveals absence of vitiligo or acanthosis nigricans. NO edema Results Reviewed Results Reviewed: Laboratory Last Values Glucose (Clinic) 103 mg/dL (60-115) 09/16/24 10:42 Assessment & Plan Assessment & Plan (1) T2DM (type 2 diabetes mellitus): Code(s): E11.9 - Type 2 diabetes mellitus without complications Category: Medical Qualifiers: Diabetes mellitus skilled nursing insulin use: without watcher automat long goods use Diabetes mellitus complication status: with hyperglycemia Qualified Code(s): E11.65 - Type 2 diabetes mellitus with hyperglycemia Plan: 51-year-old type 2 diabetic with retinopathy and neuropathy on gabapentin with greatly improved glycemic control. Glucose average 135 on freestyle Rakan 3+ with no lows. He will continue current medications He has a prescription for smoking cessation through his PCP. Has history of GERD which has not increased in severity since starting Trulicity. BP on recheck in good control. He will keep his scheduled appointment for an arterial Doppler and we will contact either his PCP or office if he does not hear from podiatry. Glucose tablets sent The patient had an opportunity to ask questions regarding treatment plan. The patient expressed understanding and agreement with the above treatment plan. The patient is aware they should contact our office by phone for worsening glucose readings or for any low blood sugars which may warrant a change in diabetes medication. Compliance is encouraged with medications and any followup testing/consults which may have been ordered. Medications: New glucose (Dex4 Glucose) every 15 minutes until symptoms of low blood sugar are controlled 16 grams (4 x 4 gram) PO Q15M 30 days PRN 30 tabs 3RF hypoglycemia MDD 16 tablets E11.65 - Type 2 diabetes mellitus with hyperglycemia Refilled blood-glucose sensor (FreeStyle Rakan 3 Plus Sensor device) As directed every 15 days 2 ea 11RF gabapentin 800 mg PO TID 90 tabs 1RF E11.40 - Type 2 diabetes mellitus with diabetic neuropathy, unspecified Patient Instructions: Take 15 carb carbohydrate grams to treat a low sugar (3-4 glucose tablets, half a glass of juice or 15 carbohydrate grams of soft candy such as gummie snacks). Recheck your sugar in 15 minutes and re-treat again with 15 carbohydrate grams if low or still with symptoms. Do not drive a car or operate machinery if you do not know what your blood sugar is, if it is low or in excess of 300. Always carry a source of sugar Coding Level of Care Code Est Pt Level 4 (81907) Complex EM visit Add On G2211 Diagnoses Type 2 diabetes mellitus with hyperglycemia, without long-term current use of insulin E11.65 Diabetes mellitus skilled nursing insulin use: without skilled nursing use Diabetes mellitus complication status: with hyperglycemia Time Spent (min) 30 Comment Time spent reviewing labs/provider notes, face to face, chart doc
[2024-09-16 10:39] VITALS: BP 142/82; PULSE 85; O2SAT 98
[2024-09-16 10:47] LABS: Glucose, Whole Blood 103 mg/dL (60-115)
[2024-09-16 11:02] VITALS: BP 124/76
== END 2024-09-16 11:05 | disposition home or self-care (01) ==
LOC: HO.ENCR 10:38
PROVIDERS: PCP Internal Medicine; Visit Provider Nurse Practitioner Adult Health
DX: E11.65 Type 2 diabetes mellitus with hyperglycemia (principal)
CPT/HCPCS: 99214; G2211

== ENCOUNTER 2024-12-04 08:48 | Outpatient (AMB) | payer OTHER, SELFPAY ==
--- NOTE | 2024-12-04 09:28 | MHC.AMDMED ---
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 Name: [facility] [place] Accompanied by: Self / Same As Patient Allergies No Known Allergies Allergy (Verified 09/16/24 09:30) HPI Comprehensive Diabetes Asmnt Most Recent Diabetes Results: Microalb/Creat Ratio, (<30) 22.6 ug/mg cr 08/20/24 Cholesterol, (<200) 118 mg/dL 08/20/24 HDL Cholesterol, (>40) 33 mg/dL L 08/20/24 Triglycerides, (<150) 223 mg/dL H 08/20/24 Creatinine, (0.5-1.4) 1.05 mg/dL 08/22/24 BUN, (9-16) 17 mg/dL H 08/22/24 Sodium, (135-145) 139 mmol/L 08/22/24 Potassium, (3.3-5.1) 4.8 mmol/L Δ 08/22/24 Chloride, (96-108) 104 mmol/L 08/22/24 Carbon Dioxide, (22-29) 25 mmol/L 08/22/24 Calcium, (8.4-10.2) 9.3 mg/dL 08/22/24 AST, (5-37) 21 U/L 08/22/24 ALT, (0-40) 32 U/L 08/22/24 Total Protein, (6.5-8.0) 6.6 g/dL 08/22/24 Albumin, (3.5-5.0) 4.3 g/dL 08/22/24 PFSH Medical History (Updated 09/20/24 @ 00:16 by Heather Garibay MD) Hypogonadism in male Cigarette smoker Diabetes mellitus with diabetic neuropathy Heartburn Vitamin D deficiency HLD (hyperlipidemia) HTN (hypertension) Surgical History (Updated 09/20/24 @ 00:16 by Heather Garibay MD) Hx of eye surgery Hx of colonoscopy Family History Father Diabetes mellitus Mother HTN (hypertension) Social History Household Members: Children Housing: Apartment Alcohol intake: current Alcohol intake frequency: holidays/special occasions only Patient Tobacco Use Status: Current someday Tobacco user Tobacco use type: Cigarette Cigarette Packs Per Day: 1 e-Cigarette/Vaping Use: Never Used Current occupational status: unemployed Cognitive needs: No Hearing needs: No Vision needs: No Assessment & Plan Assessment & Plan (1) Diabetes mellitus with diabetic neuropathy: Code(s): E11.40 - Type 2 diabetes mellitus with diabetic neuropathy, unspecified Plan: Diabetes self-management education and support participation record Assessment/scale: 1= needs instructed? 2= needs review? 3= comprehend keep point? 4= demonstrates understanding/ competent? NC= Not Covered Topics Learning Objective: Initial visit Initial or post srvc Initial or post srvc Initial or post srvc Initial or post srvc Initial or post srvc Post srvc Comments Pre Edu-assessment/plan Outcome or reassess Outcome or reassess Outcome or reassess Outcome or reassess Outcome or reassess Outcome or reassess Diabetes pathophysiology 1 Healthy eating 1 Being active 1 Taking medication 1 Monitoring glucose 1 Acute complication 1 Chronic complicated 1 Lifestyle and healthy coping 1 Diabetes distress in support 1 ?Diabetes pathophysiology: ?Defined diabetes med identify own type of diabetes; list 3 options for treating diabetes Healthy eating: ?Described effect of type, amount and ?timing of food on blood glucose; list 3 methods for planning meal Being active: ?State effect of exercise on blood glucose level Taking medication: ?State effect of diabetes medications on diabetes; name diabetes medications taking, action and side effects Monitoring glucose: ?Identify recommended blood glucose targets and personal target Acute complication: ?List symptoms and treatment of hyper and hypoglycemia, DKA, sick day guidelines and guidelines for severe weather or situations of crisis and diabetes supply manage Chronic complication: ?To find the relationship of blood glucose levels to long-term complications of diabetes in screening and preventative measures Lifestyle and healthy coping: ?Described lifestyle and healthy coping strategies to rule out diabetes self-management Diabetes to stress and support: ?Recognize Diabetes to stress and be able to identified support options Learning objectives: The patient was provided with verbal and written education on the following topics as outlined below. The patient met all learning objectives and was able to verbalize understanding and provide teach back of education topics discussed . The patient was provided with the opportunity to ask questions and all questions were answered. Patient Assessment Assess patient education level/literacy/barriers, patient's last A1c in July 2024 10.6%. Pt identified foods from carb list. Patient questions/concerns, lives with daughter, who does cooking and food shopping What is Diabetes? Pathophysiology How the body produces and uses insulin Identify type of DM Risk factors Signs of Diabetes Brief overview of Diabetes Management Monitoring blood sugar Following a meal plan Regular exercise Maintaining a healthy weight Taking medication as needed Members of the care team (PCP, RN, MA, RD, CDE, data analyst) Blood glucose monitoring When/how often to test Target blood sugar ranges Introduction to Nutrition Importance of healthy diet in managing DM Diet is personalized to individual preference Review patient?s regular diet/food preferences Who prepares meals/does food shopping/ Dining out?/ Barriers? How diet effects glucose Eating 3 balanced meals a day with small, healthy snacks between meals Review food groups Carbohydrates: What is a carbohydrate/Which food/food groups are considered carbohydrates Effect of carbohydrates on blood glucose Portion sizes Reading food labels Basic carb counting (if applicable per nursing assessment) Plate method Meal planning Recommendations: Follow plate method, consistent carbs and read nutritional labels. Smart Goal:Identify foods and current meal plan that contain carbohydrates Educational Materials: The patient was provided with the following written educational materials: Planning Healthy Meals, Target Goals Handouts given in slovenian Patient Response to instructions: Comprehension of Instructions: Fair Readiness to make changes: Contemplation How confident they feel about making changes: Positive Portions of this note were created using voice recognition software, please excuse any words or phrases that may have been misinterpreted. Coding Level of Care Code Est Pt Level 1 (43216) Diagnoses Diabetes mellitus with diabetic neuropathy E11.40
== END 2024-12-04 09:29 | disposition home or self-care (01) ==
LOC: HO.ENCR 08:52
PROVIDERS: PCP Internal Medicine; Visit Provider Registered Nurse Diabetes Educator
DX: E11.40 Type 2 diabetes mellitus with diabetic neuropathy, unspecified (principal)

== ENCOUNTER → 2024-12-04 08:48 | Outpatient (BNVA) | payer OTHER, SELFPAY | PROVIDERS: PCP Internal Medicine; Visit Provider Registered Nurse Diabetes Educator | DX: E11.40 Type 2 diabetes mellitus with diabetic neuropathy, unspecified (principal) | CPT/HCPCS: 99211 ==

== ENCOUNTER 2024-12-16 09:39 | Outpatient (AMB) | payer OTHER, SELFPAY ==
--- NOTE | 2024-12-16 09:40 | MHC.OFFVIS ---
Vital Signs 12/16/24 09:43 Height 5 ft 7 in Weight 194 lb 7.163 oz BMI 30.5 BP 114/82 Blood Pressure Location Rt brachial Position Sitting Pulse 86 Pulse Source Pulse Oximeter Pulse Oximetry (%) 97 Oxygen Delivery Method Room Air Intake Visit Reasons: T2DM- see comments Intake Note: Patient present today to follow up on Type 2 Diabetes Mellitus. 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 Services: Fashion Consultant Sales Present Fashion Consultant Sales Name: Francisco [email or web address] Information Interpreted: non-clinical & clinical Accompanied by: Self / Same As Patient Allergies No Known Allergies Allergy (Verified 12/16/24 09:43) Medication List - Last Reconciled 12/16/24 by FLOR Jaquez acetaminophen 1,000 mg (2 x 500 mg) PO Q6H PRN aspirin 1 tab PO DAILY atenolol 100 mg PO DAILY atorvastatin 80 mg PO BEDTIME 90 days blood sugar diagnostic (FreeStyle Lite Strips) As directed test once a day blood-glucose sensor (FreeStyle Rakan 3 Plus Sensor device) Apply 1 new sensor every 15 days as directed to monitor blood glucose continuously. cane As directed clotrimazole 1% 1 appl topical BID 10 days dulaglutide (Trulicity) 3 mg (0.5 mL) subcut QWEEK 28 days empagliflozin (Jardiance) 10 mg PO DAILY 30 days flash glucose sensor (FreeStyle Rakan 2 Sensor kit) As directed every 14 days gabapentin 800 mg PO TID glucose (Dex4 Glucose) 16 grams (4 x 4 gram) PO Q15M PRN 30 days MDD 16 tablets insulin glargine (Lantus Solostar U-100 Insulin) 10 units (0.1 mL) subcut QPM 30 days lancets (FreeStyle Lancets) As directed test once a day losartan 100 mg PO DAILY metformin 1,000 mg PO ONCE 90 days mupirocin 2% 1 appl topical BID 7 days pen needle, diabetic As directed daily varenicline tartrate PO PER PKG DIR HPI Comments Details: This is a 59-year-old male with a past medical history of hypertension, hyperlipidemia, vitamin-D deficiency and type 2 diabetes presenting for diabetic management. He was last seen by my colleague on 09/16/2024. He was initially diagnosed with type 2 diabetes in 2011 when he presented with DKA. Reviewed Rakan 3+ data CGM active 56% Average glucose 171 G SC 7.4% Very high 3% High 36% Target range 61% Hypoglycemia 0% He has hyperglycemia between noon and 9pm. Denies hypoglycemia. Hemoglobin A1c today is 7.1%. Current regimen: Lantus 10 units daily, metformin 1000 mg twice daily, Trulicity 3 mg weekly and Jardiance 10 mg daily. No diabetic ophthalmic complications. He has a history of vitreomacular adhesion. He is followed by [facility] [place]. He has a follow up in February. Complications: Neuropathy on gabapentin Hyperlipidemia is treated with the atorvastatin. Triglycerides are elevated. He smoke cigarettes. Chantix ineffective. Seen by CDE, Marleni Pryor. Mary Grace Kaitlin ordered U/S VANDANA, but she left the practice in September. New order placed today. The patient's has breast cancer. He is leaving with her to the [place] until April 2025 shortly. ROS: Constitutional: No fevers or chills Eyes: No vision changes Respiratory: No shortness of breath Cardiovascular: No chest pain Gastrointestinal: No anorexia, nausea, vomiting or diarrhea. No abdominal pain Genitourinary: No dysuria, hematuria, urinary frequency. Neurologic: Endorsing tingling and burning in his feet Endocrine: No cold or heat intolerance. No polyuria or polydipsia. Physical exam: Constitutional: Alert, in no distress. Neck: Supple, Full range of motion. No lymphadenopathy. No palpable thyroid masses. Respiratory: Clear to auscultation. Cardiovascular: S1 S2 regular. No murmurs Extremities: Warm and well perfused. No clubbing, cyanosis or edema. Bilateral lower extremity varicosities. Psychiatric: Normal mood and affect [facility] Medical History (Updated 12/16/24 @ 10:02 by FLOR Jaquez) PVD (peripheral vascular disease) Hypogonadism in male Cigarette smoker Diabetes mellitus with diabetic neuropathy Heartburn Vitamin D deficiency HLD (hyperlipidemia) HTN (hypertension) Surgical History Hx of eye surgery Hx of colonoscopy Family History Father Diabetes mellitus Mother HTN (hypertension) Social History Household Members: Children Housing: Apartment Alcohol intake: current Alcohol intake frequency: holidays/special occasions only Patient Tobacco Use Status: Current someday Tobacco user Tobacco use type: Cigarette Cigarette Packs Per Day: 1 e-Cigarette/Vaping Use: Never Used Current occupational status: unemployed Cognitive needs: No Hearing needs: No Vision needs: No Physical Exam Vital Signs: Last Vital Signs Pulse 86 12/16/24 09:43 BP 114/82 12/16/24 09:43 Pulse Ox 97 12/16/24 09:43 Oxygen Delivery Method Room Air 12/16/24 09:43 BMI result Body Mass Index 30.5 Office Procedures Glucose Monitoring Details Details: see HPI 91292 - Glucose monitoring, continuous-physician I&R Procedure code (CPT) selection complete Results AMB Hemoglobin A1c AMB Hemoglobin A1c 7.1 % Last Edit by ASHLEIGH Rothman on 12/16/24 09:58 Results Reviewed Results Reviewed: Laboratory Last Values Glucose (Clinic) 139 mg/dL (60-115) H 12/16/24 09:47 Hgb A1c (Clinic) 7.1 % (4.0-6.0) H 12/16/24 09:49 Laboratory Tests 02/17/19 08/20/24 08/22/24 10:30 08:38 10:12 Plt Count 219 Creatinine 1.05 Estimated GFR > 60 C-Peptide 3.43 AST 21 ALT 32 Triglycerides 223 H Cholesterol 118 LDL Cholesterol, Calc 41 HDL Cholesterol 33 L Urine Creatinine 75.14 Urine Microalbumin 17.0 Microalb/Creat Ratio 22.6 Islet Cell Ab Screen NEGATIVE MIKA Antibody <5 Assessment & Plan Assessment & Plan (1) Diabetes mellitus with diabetic neuropathy: Code(s): E11.40 - Type 2 diabetes mellitus with diabetic neuropathy, unspecified Category: Medical Plan: In summary this is a 59-year-old male with significantly improved diabetic control on his current regimen. Hemoglobin A1c is 7.1% with a target of less than 7%. Patient defers medication adjustment today. He wants to work on lifestyle modifications. We discussed a diabetic diet. He will decrease carbohydrates and sugars. I recommended regular exercise. He should also a speak to his primary care provider about other options for smoking cessation. Reviewed the complications of diabetes. I referred him anew to Podiatry. I reordered the ultrasound. He was advised to call if he does not hear about these appointments in the next 2 weeks. Continue current medications: Metformin 1000 mg twice a day, Lantus 10 units daily, Jardiance 10 mg daily and Trulicity 3 mg weekly. (2) HTN (hypertension): Code(s): I10 - Essential (primary) hypertension Category: Medical Qualifiers: Hypertension type: unspecified Qualified Code(s): I10 - Essential (primary) hypertension Plan: Controlled. Continue current regimen. He is on an Arb for renal protection. (3) HLD (hyperlipidemia): Code(s): E78.5 - Hyperlipidemia, unspecified Category: Medical Qualifiers: Hyperlipidemia type: unspecified Qualified Code(s): E78.5 - Hyperlipidemia, unspecified Plan: Lifestyle modifications reviewed with the patient. Recommended the Mediterranean diet. Decrease carbohydrates and sugars and avoid alcohol. Continue atorvastatin. Check labs prior to next appointment. Plan Patient is leaving the country until April 2025. Follow up in May 2025. Orders: Orders Creatinine 3 Months E11.9 - Type 2 diabetes mellitus without complications Lipid Panel 3 Months E78.5 - Hyperlipidemia, unspecified AMB Glucose Monitoring Today E11.9 - Type 2 diabetes mellitus without complications AMB Hemoglobin A1c Today E11.40 - Type 2 diabetes mellitus with diabetic neuropathy, unspecified US VANDANA complete Today I73.9 - Peripheral vascular disease, unspecified Hemoglobin A1c 3 Months R73.9 - Hyperglycemia, unspecified Referrals Podiatry Referral E11.40 - Type 2 diabetes mellitus with diabetic neuropathy, unspecified Medications: New cane As directed 1 ea 0RF E11.40 - Type 2 diabetes mellitus with diabetic neuropathy, unspecified Coding Level of Care Code Est Pt Level 4 (73125) Diagnoses Diabetes mellitus with diabetic neuropathy E11.40 Hypertension, unspecified type I10 Hypertension type: unspecified Hyperlipidemia, unspecified hyperlipidemia type E78.5 Hyperlipidemia type: unspecified CPT Codes Details - CPT: 73747 - Glucose monitoring, continuous-physician I&R ([id number])
[2024-12-16 09:43] VITALS: BP 114/82; PULSE 86; O2SAT 97; BMI 30.5
[2024-12-16 09:54] LABS: Glucose, Whole Blood 139 mg/dL (60-115)
== END 2024-12-16 10:28 | disposition home or self-care (01) ==
LOC: HO.ENCR 09:40
PROVIDERS: PCP Internal Medicine; Visit Provider Physician Assistant Medical
DX: E11.40 Type 2 diabetes mellitus with diabetic neuropathy, unspecified (principal); I10 Essential (primary) hypertension; E78.5 Hyperlipidemia, unspecified

== ENCOUNTER → 2024-12-16 09:39 | Outpatient (BNVA) | payer OTHER, SELFPAY | PROVIDERS: PCP Internal Medicine; Visit Provider Physician Assistant Medical | DX: E11.40 Type 2 diabetes mellitus with diabetic neuropathy, unspecified (principal); I10 Essential (primary) hypertension; Z79.4 Long term (current) use of insulin; E78.5 Hyperlipidemia, unspecified | CPT/HCPCS: 82947; 83036; 99212 ==

== ENCOUNTER 2024-12-31 09:14 | Outpatient (AMB) | payer OTHER, SELFPAY ==
[2024-12-31 09:50] VITALS: BP 138/70; PULSE 74; RESP 16; TEMP 36.7; O2SAT 95; BMI 31.2
--- NOTE | 2024-12-31 09:50 | A.OFFPC_ITS ---
Vital Signs 12/31/24 09:50 Height 5 ft 7 in Weight 199 lb BMI 31.2 BP 138/70 Blood Pressure Location Rt brachial Position Sitting Respiration 16 Pulse 74 Pulse Source Pulse Oximeter Temp 98.0 F Temp Source Oral Pulse Oximetry (%) 95 Oxygen Delivery Method Room Air Intake Visit Reasons: 1m follow up, smoking cessation, cannot do TH Poultry Farmer Required: Yes Poultry Farmer Name: Peter ID [id number] Information Interpreted: clinical only Allergies No Known Allergies Allergy (Verified 12/31/24 10:10) Medication List - Last Reconciled 12/31/24 by Heather Garibay MD acetaminophen 1,000 mg (2 x 500 mg) PO Q6H PRN aspirin 1 tab PO DAILY atenolol 100 mg PO DAILY atorvastatin 80 mg PO BEDTIME 90 days blood sugar diagnostic (FreeStyle Lite Strips) As directed test once a day blood-glucose sensor (FreeStyle Rakan 3 Plus Sensor device) Apply 1 new sensor every 15 days as directed to monitor blood glucose continuously. cane As directed clotrimazole 1% 1 appl topical BID 10 days dulaglutide (Trulicity) 3 mg (0.5 mL) subcut QWEEK 28 days empagliflozin (Jardiance) 10 mg PO DAILY 30 days flash glucose sensor (FreeStyle Rakan 2 Sensor kit) As directed every 14 days gabapentin 800 mg PO TID glucose (Dex4 Glucose) 16 grams (4 x 4 gram) PO Q15M PRN 30 days MDD 16 tablets insulin glargine (Lantus Solostar U-100 Insulin) 10 units (0.1 mL) subcut QPM 30 days lancets (FreeStyle Lancets) As directed test once a day losartan 100 mg PO DAILY metformin 1,000 mg PO BID mupirocin 2% 1 appl topical BID 7 days pen needle, diabetic As directed daily Tobacco use date assessed: 12/31/24 Dental Screening Dental Screen Date: 12/31/24 Did you have a dental visit in the last 12 months?: No Did you have a dental problem in the last 6 months where you did not have access to dental care?: No Was dental information given to patient?: Patient has dentist HPI 1m follow up, smoking cessation, cannot do TH HPI Details 59-year-old male here today for follow-u p on his smoking cessation, was prescribed varenicline starter pack approximately 3 months ago, which he tried, but did not less than the craving for nicotine. Still smoking at least 1-1-1/2 pack a day, but would like to try quitting again. Has not yet tried nicotine patches. Has been experiencing intermittent episodes of heartburn, requests refill on omeprazole PFS Medical History (Updated 12/31/24 @ 10:33 by Heather Garibay MD) Heavy cigarette smoker (20-39 per day) PVD (peripheral vascular disease) Hypogonadism in male Cigarette smoker Diabetes mellitus with diabetic neuropathy Heartburn Vitamin D deficiency HLD (hyperlipidemia) HTN (hypertension) Surgical History Hx of eye surgery Hx of colonoscopy Family History Father Diabetes mellitus Mother HTN (hypertension) Social History Household Members: Children Housing: Apartment Alcohol intake: current Alcohol intake frequency: holidays/special occasions only Patient Tobacco Use Status: Current someday Tobacco user Tobacco use type: Cigarette Cigarette Packs Per Day: 1 e-Cigarette/Vaping Use: Never Used Current occupational status: unemployed Cognitive needs: No Hearing needs: No Vision needs: No Questionnaire PHQ-9 Over the last 2 weeks, how often have you been bothered by any of the following problems? 1. Little interest or pleasure in doing things: not at all 2. Feeling down, depressed, or hopeless: not at all 3. Trouble falling or staying asleep, or sleeping too much: not at all 4. Feeling tired or having little energy: several days 5. Poor appetite or overeating: not at all 6. Feeling bad about yourself - or that you are a failure or have let yourself or your family down: not at all 7. Trouble concentrating on things, such as reading the newspaper or watching television: not at all 8. Moving or speaking so slowly that other people could have noticed. Or the opposite - being so fidgety or restless that you have been moving around a lot more than usual: not at all 9. Thoughts that you would be better off or of hurting yourself in some way: not at all Total score: 1 Depression Screening Interpretation: Negative Depression Screening Done: Yes Source: Developed by Drs. Lucio Avilez, Sofie Andrews, Vishal Evangelista and colleagues, with an educational padmini from [employer] Thrive Questionnaire Date Thrive assessed: 09/16/24 I am a: Parent/Caregiver What is your living situation today?: I do not have a steady places to live I am temporarily staying with others Within the past 12 months, did the food you bought not last and you didn't have the money to get more?: Never true Within the past 12 months, did you worry whether your food would run out before you got money to buy more?: Never true Do you have trouble paying for medicines?: No Do you have trouble getting transportation to medical appointments?: No Do you have trouble paying your heating and electricity bill?: No Do you have trouble taking care of your child, family member or friend?: No Do you have trouble with day-to-day activities such as bathing, preparing meals, shopping, managing finances, etc.?: No Are you currently unemployed and looking for a job?: Yes Are you interested in more education?: No Currently or been in a relationship where the following occur: I choose not to answer THRIVE Score: 1 AUDIT C Alcohol Use Questionnaire (AUDIT-C) 1. How often do you have a drink containing alcohol?: Monthly or less 2. How many drinks containing alcohol do you have on a typical day when you are drinking?: 10 or more 3. How often do you have six or more drinks on one occasion?: Monthly Total Score: 7 MIKA-7 AMB Questionnaire MIKA-7 Date MIKA - 7 assessed: 09/16/24 Feeling nervous, anxious, or on edge: 1 = Several days Not being able to stop or control worryin = Several days Worrying too much about different things: 1 = Several days Trouble relaxin = Not at all Being so restless that it is hard to sit still: 0 = Not at all Becoming easily annoyed or irritable: 0 = Not at all Feeling afraid as if something awful might happen: 0 = Not at all Total MIKA-7 score (0-4 normal; 5-9 mild; 10-14 moderate; 15-21 severe): 3 Source: Developed by Drs. Lucio Avilez, Sofie Andrews, Vishal Evangelista and colleagues, with an educational padmini from [employer] Review of Systems Const All systems reviewed & are unremarkable except as noted in HPI and below Physical exam (Primary Care) Vital Signs: Last Vital Signs Temp 98.0 F 12/31/24 09:50 Pulse 74 12/31/24 09:50 Resp 16 12/31/24 09:50 BP 138/70 12/31/24 09:50 Pulse Ox 95 12/31/24 09:50 Oxygen Delivery Method Room Air 12/31/24 09:50 BMI result Body Mass Index 31.2 Tobacco/Smoking Status: Tobacco use Status Tobacco use date assessed 12/31/24 12/31/24 09:56 Patient Tobacco Use Status Current someday Tobacco 12/31/24 09:56 Tobacco use type Cigarette 12/31/24 09:56 e-Cigarette/Vaping Use Never Used 12/31/24 09:56 Tobacco cessation counseling provided: Yes PHQ-9: PHQ-9 Score PHQ-9: Total score 1 12/31/24 10:37 Depression Screening Interpretation: Negative Thrive Assessment: Date of Thrive Assessment Date Thrive assessed 09/16/24 12/31/24 09:56 Currently or been in a relationship where the following occur: I choose not to answer Const General: no acute distress Nutritional Appearance: obese Orientation/consciousness: patient oriented x3 [facility] General nose exam: Normal external nose present Mouth: Normal oral and palatal mucosa present, oropharynx normal and moist mucous membranes Neck Neck: Yes full ROM, Yes no lymphadenopathy and Yes supple Resp Effort & Inspection: normal respiratory effort and able to speak in complete sentences Auscultation: clear to auscultation bilaterally Cardio Rate: regular rate Rhythm: regular rhythm Heart sounds: S1 normal heart sound present and S2 normal heart sound present GI Inspection: Yes normal to inspection Palpation (GI): Soft to palpation, nontender and no masses Auscultation: normal bowel sounds Neuro General: patient oriented x3, gait normal, tone normal, moves all extremities and no focal motor deficits Cognition (Neuro): normal cognition Gait exam (Neuro): Normal gait present Motor exam (neuro): 5/5 motor strength present throughout Sensory Exam: double simultaneous stimulation for sensation abnormal Coding Level of Care Code Est Pt Level 4 (24512) Diagnoses Cigarette smoker motivated to quit F17.210 Heartburn R12 Assessment & Plan Assessment & Plan (1) Cigarette smoker motivated to quit: Code(s): F17.210 - Nicotine dependence, cigarettes, uncomplicated Plan: Stop varenicline, due quitting smoking, Pt wishes to try Nicoderm patch. Pt advised to apply the nicotine patch as directed on cigarette quit day. Discussed common side effects and strongly advised not to smoke while using the patch. Remove Patch at night before sleeping . Schedule a follow-up in 4 weeks .Discussed side effects including but not limited to local erythema, rash, diarrhea, and insomnia., , (2) Heartburn: Code(s): R12 - Heartburn Category: Medical Plan: He says prescription sent for omeprazole to take as needed for heartburn Medications: New nicotine 1 patch transdermal DAILY 28 ea 1RF F17.210 - Nicotine dependence, cigarettes, uncomplicated omeprazole Take at least half an hour before eating 20 mg PO DAILY 90 caps 0RF R12 - Heartburn
== END 2024-12-31 10:36 | disposition home or self-care (01) ==
LOC: HO.HMCC 09:15
PROVIDERS: PCP Internal Medicine; Visit Provider Internal Medicine
DX: F17.210 Nicotine dependence, cigarettes, uncomplicated (principal); R12 Heartburn

== ENCOUNTER → 2024-12-31 09:14 | Outpatient (BNVA) | payer OTHER, SELFPAY | PROVIDERS: PCP Internal Medicine; Visit Provider Internal Medicine | DX: R12 Heartburn (principal); F17.210 Nicotine dependence, cigarettes, uncomplicated; Z13.31 Encounter for screening for depression | CPT/HCPCS: 99212 ==

== ENCOUNTER 2025-01-13 08:44 | Outpatient (AMB) | payer OTHER, SELFPAY ==
--- NOTE | 2025-01-13 09:31 | A.OFFVIS_ITS ---
Intake Intake Visit Reasons: 60 mins Ceo And Co Founder Required: Yes Ceo And Co Founder Language: Dental Technology Advisor Services: Ceo And Co Founder Present Ceo And Co Founder Name: [id number] Accompanied by: Self / Same As Patient Allergies No Known Allergies Allergy (Verified 12/31/24 10:10) PFSH Medical History (Updated 12/31/24 @ 10:33 by Heather Garibay MD) Heavy cigarette smoker (20-39 per day) PVD (peripheral vascular disease) Hypogonadism in male Cigarette smoker Diabetes mellitus with diabetic neuropathy Heartburn Vitamin D deficiency HLD (hyperlipidemia) HTN (hypertension) Surgical History Hx of eye surgery Hx of colonoscopy Family History Father Diabetes mellitus Mother HTN (hypertension) Social History Household Members: Children Housing: Apartment Alcohol intake: current Alcohol intake frequency: holidays/special occasions only Patient Tobacco Use Status: Current someday Tobacco user Tobacco use type: Cigarette Cigarette Packs Per Day: 1 e-Cigarette/Vaping Use: Never Used Current occupational status: unemployed Cognitive needs: No Hearing needs: No Vision needs: No Assessment & Plan Assessment & Plan (1) Diabetes mellitus with diabetic neuropathy: Code(s): E11.40 - Type 2 diabetes mellitus with diabetic neuropathy, unspecified Plan: Diabetes self-management education and support participation record Assessment/scale: 1= needs instructed? 2= needs review? 3= comprehend keep point? 4= demonstrates understanding/ competent? NC= Not Covered Topics Learning Objective: Initial visit Initial or post srvc Initial or post srvc Initial or post srvc Initial or post srvc Initial or post srvc Post srvc Comments Pre Edu-assessment/plan Outcome or reassess O utcome or reassess Outcome or reassess Outcome or reassess Outcome or reassess Outcome or reassess Diabetes pathophysiology 1 3 Healthy eating 1 2 Being active 1 3 Taking medication 1 3 Monitoring glucose 1 3 Acute complication 1 3 Chronic complicated 1 Lifestyle and healthy coping 1 Diabetes distress in support 1 ?Diabetes pathophysiology: ?Defined diabetes med identify own type of diabetes; list 3 options for treating diabetes Healthy eating: ?Described effect of type, amount and ?timing of food on blood glucose; list 3 methods for planning meal Being active: ?State effect of exercise on blood glucose level Taking medication: ?State effect of diabetes medications on diabetes; name diabetes medications taking, action and side effects Monitoring glucose: ?Identify recommended blood glucose targets and personal target Acute complication: ?List symptoms and treatment of hyper and hypoglycemia, DKA, sick day guidelines and guidelines for severe weather or situations of crisis and diabetes supply manage Chronic complication: ?To find the relationship of blood glucose levels to long- term complications of diabetes in screening and preventative measures Lifestyle and healthy coping: ?Described lifestyle and healthy coping strategies to rule out diabetes self-management Diabetes to stress and support: ?Recognize Diabetes to stress and be able to identified support options Learning objectives: The patient was provided with verbal and written education on the following topics as outlined below. The patient met all learning objectives and was able to verbalize understanding and provide teach back of education topics discussed . The patient was provided with the opportunity to ask questions and all questions were answered. Patient Assessment Assess patient education level/literacy/barriers, patient's A1c in July 2024 10.6%. Last A1c on 12/16/2024 7.1% Patient is currently taking metformin 1000 mg b.i.d. Jardiance 10 mg daily Lantus 10 units daily, although patient reports that he does not take it about 2 times a week because if his glucose is within target range he believes he does not need it. Discussed the importance of being consistent with Lantus 10 units. Reviewed insulin action Trulicity 3 mg weekly Reviewed patient's CGM data patient glucose is at target for the last 14 days Learning objectives: The patient was provided with verbal and written education on the following topics as outlined below. The patient met all learning objectives and was able to verbalize understanding and provide teach back of education topics discussed . The patient was provided with the opportunity to ask questions and all questions were answered. Topics covered in today?s session included: Medications (If applicable) * Name of medication? * Dosing/administration instructions? * Mechanism of action? * Potential side effects? * Potential adverse reaction and appropriate treatment? * Review onset, peak, duration Assess for concerns re: insurance coverage, cost, barriers to compliance Insulin/Injectables (If applicable) * Storage/care of insulin?? * Injection sites? * Site rotation? * Onset, peak, duration * Drawing up insulin? * Injecting insulin/other injectables? * Sharps disposal Continuous blood glucose monitoring (if applicable) Hypoglycemia and Hyperglycemia * Signs and symptoms? * Causes?? * Treatment? * Preventing hypoglycemia? * When to seek medical attention Target Goals: * Blood glucose targets and how you feel when your blood glucose is in and out of your target ranges. * Monitoring and knowing your A1C. * What can make blood glucose go up and down and preventing high and low blood glucose. * Review of blood sugar targets in expected goal range and outside of expected goal range. * Problem solving and preventing hyper/hypoglycemia. * Sick day management of diabetes. * Using blood sugar results in decision making process in managing diabetes. ?Patient was receptive to information provided and participated in the discussion. Asked?appropriate questions and demonstrated good understanding of the topics discussed.? ? Educational Materials: The patient was provided with the following written educational materials: Target Goal handout Smart Goal Assessment:? Identify foods and current meal plan that contain carbohydrates Pt met goal 75% New Smart Goal: Patient will use rule of 15s to treat hypoglycemia Patient Response to instructions: Comprehension of Instructions: good Readiness to make changes:? Action How confident they feel about making changes: Positive Portions of this note were created using voice recognition software, please excuse any words or phrases that may have been misinterpreted. Coding Level of Care Code Est Pt Level 1 (60397) Diagnoses Diabetes mellitus with diabetic neuropathy E11.40
== END 2025-01-13 09:35 | disposition home or self-care (01) ==
LOC: HO.ENCR 08:45
PROVIDERS: PCP Internal Medicine; Visit Provider Registered Nurse Diabetes Educator
DX: E11.40 Type 2 diabetes mellitus with diabetic neuropathy, unspecified (principal)

== ENCOUNTER → 2025-01-13 08:44 | Outpatient (BNVA) | payer OTHER, SELFPAY | PROVIDERS: PCP Internal Medicine; Visit Provider Registered Nurse Diabetes Educator | DX: E11.40 Type 2 diabetes mellitus with diabetic neuropathy, unspecified (principal); Z79.4 Long term (current) use of insulin; Z79.84 Long term (current) use of oral hypoglycemic drugs; Z79.85 Long-term (current) use of injectable non-insulin antidiabetic drugs | CPT/HCPCS: 99211 ==

== ENCOUNTER 2025-01-26 13:03 | Outpatient (AMB) | payer OTHER, SELFPAY ==
--- NOTE | 2025-01-26 13:30 | MHC.PC.OV ---
Vital Signs 01/26/25 13:33 Height 5 ft 7 in Weight 199 lb BMI 31.2 BP 102/70 Blood Pressure Location Lt brachial Position Sitting Respiration 15 Pulse 106 H Pulse Source Pulse Oximeter Temp 98.1 F Temp Source Oral Pulse Oximetry (%) 96 Oxygen Delivery Method Room Air Intake Visit Reasons: 1 month f/up Intake Note: Pt is here today for his 1mo. f/u Java Technical Manager Required: Yes Java Technical Manager Language: Forensic Economist Name: Monica ID number [id number] Allergies No Known Allergies Allergy (Verified 02/01/25 15:16) Medication List - Last Reconciled 01/26/25 by Heather Garibay MD acetaminophen 1,000 mg (2 x 500 mg) PO Q6H PRN aspirin 1 tab PO DAILY atenolol 100 mg PO DAILY atorvastatin 80 mg PO BEDTIME 90 days blood sugar diagnostic (FreeStyle Lite Strips) As directed test once a day blood-glucose sensor (FreeStyle Rakan 3 Plus Sensor device) Apply 1 new sensor every 15 days as directed to monitor blood glucose continuously. cane As directed clotrimazole 1% 1 appl topical BID 10 days dulaglutide (Trulicity) 3 mg (0.5 mL) subcut QWEEK 28 days empagliflozin (Jardiance) 10 mg PO DAILY 30 days flash glucose sensor (FreeStyle Rakan 2 Sensor kit) As directed every 14 days gabapentin 800 mg PO TID glucose (Dex4 Glucose) 16 grams (4 x 4 gram) PO Q15M PRN 30 days MDD 16 tablets insulin glargine (Lantus Solostar U-100 Insulin) 10 units (0.1 mL) subcut QPM 30 days lancets (FreeStyle Lancets) As directed test once a day losartan 100 mg PO DAILY metformin 1,000 mg PO BID mupirocin 2% 1 appl topical BID 7 days nicotine 1 patch transdermal DAILY omeprazole 20 mg PO DAILY pen needle, diabetic As directed daily Tobacco use date assessed: 01/26/25 Dental Screening Dental Screen Date: 01/26/25 Did you have a dental visit in the last 12 months?: No Did you have a dental problem in the last 6 months where you did not have access to dental care?: No Was dental information given to patient?: Patient has dentist HPI HPI Comments History of Present Illness Details 51-year-old male here today for follow-up regarding smoking cessation. Was started initially on nicotine patch 21 mg per patch, which he has been using. Admits however that he smoked at least 3 cigarettes this past month as he has been having a lot of anxiety attacks. who is in the [place], was recently diagnosed with cancer. He will be visiting her next month and staying there until May 2025. Would like however to continue using the patch, as it has helped cutting back in his smoking. Denies any adverse effects from using the patch. Patient also requesting to see if he can get take to help control anxiety attacks when they occur. [facility] Medical History Heavy cigarette smoker (20-39 per day) PVD (peripheral vascular disease) Hypogonadism in male Cigarette smoker Diabetes mellitus with diabetic neuropathy Heartburn Vitamin D deficiency HLD (hyperlipidemia) HTN (hypertension) Surgical History Hx of eye surgery Hx of colonoscopy Family History Father Diabetes mellitus Mother HTN (hypertension) Social History Household Members: Children Housing: Apartment Alcohol intake: current Alcohol intake frequency: holidays/special occasions only Patient Tobacco Use Status: Current someday Tobacco user (Had 3 cigarettes in the past month) Tobacco use type: Cigarette Cigarette Packs Per Day: 1 e-Cigarette/Vaping Use: Never Used Advance Directives: Yes Advance Directives on File: Yes Advance Directives Date on File: 09/16/24 Current occupational status: unemployed Cognitive needs: No Hearing needs: No Vision needs: No Questionnaire PHQ-9 Over the last 2 weeks, how often have you been bothered by any of the following problems? 1. Little interest or pleasure in doing things: not at all 2. Feeling down, depressed, or hopeless: not at all 3. Trouble falling or staying asleep, or sleeping too much: not at all 4. Feeling tired or having little energy: several days 5. Poor appetite or overeating: not at all 6. Feeling bad about yourself - or that you are a failure or have let yourself or your family down: not at all 7. Trouble concentrating on things, such as reading the newspaper or watching television: not at all 8. Moving or speaking so slowly that other people could have noticed. Or the opposite - being so fidgety or restless that you have been moving around a lot more than usual: not at all 9. Thoughts that you would be better off or of hurting yourself in some way: not at all Total score: 1 Depression Screening Interpretation: Negative Depression Screening Done: Yes Source: Developed by Drs. Lucio Avilez, Sofie Andrews, Vishal Evangelista and colleagues, with an educational padmini from [employer]. Thrive Questionnaire Date Thrive assessed: 09/16/24 I am a: Parent/Caregiver What is your living situation today?: I do not have a steady places to live I am temporarily staying with others Within the past 12 months, did the food you bought not last and you didn't have the money to get more?: Never true Within the past 12 months, did you worry whether your food would run out before you got money to buy more?: Never true Do you have trouble paying for medicines?: No Do you have trouble getting transportation to medical appointments?: No Do you have trouble paying your heating and electricity bill?: No Do you have trouble taking care of your child, family member or friend?: No Do you have trouble with day-to-day activities such as bathing, preparing meals, shopping, managing finances, etc.?: No Are you currently unemployed and looking for a job?: Yes Are you interested in more education?: No Currently or been in a relationship where the following occur: I choose not to answer THRIVE Score: 1 AUDIT C Alcohol Use Questionnaire (AUDIT-C) 1. How often do you have a drink containing alcohol?: Monthly or less 2. How many drinks containing alcohol do you have on a typical day when you are drinking?: 10 or more 3. How often do you have six or more drinks on one occasion?: Monthly Total Score: 7 MIKA-7 AMB Questionnaire MIKA-7 Date MIKA - 7 assessed: 09/16/24 Feeling nervous, anxious, or on edge: 1 = Several days Not being able to stop or control worryin = Several days Worrying too much about different things: 1 = Several days Trouble relaxin = Not at all Being so restless that it is hard to sit still: 0 = Not at all Becoming easily annoyed or irritable: 0 = Not at all Feeling afraid as if something awful might happen: 0 = Not at all Total MIKA-7 score (0-4 normal; 5-9 mild; 10-14 moderate; 15-21 severe): 3 Source: Developed by Drs. Lucio Avilez, Sofie Andrews, Vishal Evangelista and colleagues, with an educational padmini from [employer]. MIKA-7 Assessment Billing MIKA-7 Assessment Tool: MIKA-7 Assessment 17494 Review of Systems Const All systems reviewed & are unremarkable except as noted in HPI and below Physical exam (Primary Care) Vital Signs: Last Vital Signs Temp 98.1 F 01/26/25 13:33 Pulse 106 H 01/26/25 13:33 Resp 15 01/26/25 13:33 BP 102/70 01/26/25 13:33 Pulse Ox 96 01/26/25 13:33 Oxygen Delivery Method Room Air 01/26/25 13:33 BMI result Body Mass Index 31.2 Tobacco/Smoking Status: Tobacco use Status Tobacco use date assessed 01/26/25 01/26/25 13:31 Patient Tobacco Use Status Current someday Tobacco (Had 01/26/25 14:05 3 cigarettes in the past month) Tobacco use type Cigarette 01/26/25 13:31 e-Cigarette/Vaping Use Never Used 01/26/25 13:31 Tobacco cessation counseling provided: Yes PHQ-9: PHQ-9 Score PHQ-9: Total score 1 02/01/25 15:19 Depression Screening Interpretation: Negative Thrive Assessment: Date of Thrive Assessment Date Thrive assessed 09/16/24 01/26/25 13:31 Currently or been in a relationship where the following occur: I choose not to answer Const General: no acute distress Nutritional Appearance: obese Orientation/consciousness: patient oriented x3 HENMT General nose exam: Normal external nose present Mouth: Normal oral and palatal mucosa present, oropharynx normal and moist mucous membranes Neck Neck: Yes full ROM, Yes no lymphadenopathy and Yes supple Resp Effort & Inspection: normal respiratory effort and able to speak in complete sentences Auscultation: clear to auscultation bilaterally Cardio Rate: regular rate Rhythm: regular rhythm Heart sounds: S1 normal heart sound present and S2 normal heart sound present GI Inspection: Yes normal to inspection Palpation (GI): Soft to palpation and nontender Auscultation: normal bowel sounds Neuro General: patient oriented x3, gait normal, tone normal, moves all extremities and no focal motor deficits Cognition (Neuro): normal cognition Gait exam (Neuro): Normal gait present Psych Appearance: grossly normal Mental Status: mental status grossly normal Speech and movement: Normal speech and movement present Affect: normal affect Thought process: Normal thought process present Coding Level of Care Code Est Pt Level 4 (19799) Diagnoses Cigarette smoker motivated to quit F17.210 Anxiety with limited-symptom attacks F41.8 Additional Codes MIKA-7 Assessment Billing - MIKA-7 Assessment Tool: MIKA-7 Assessment 41838 ([id number]) Assessment & Plan Assessment & Plan (1) Cigarette smoker motivated to quit: Code(s): F17.210 - Nicotine dependence, cigarettes, uncomplicated Plan: Prescription refill sent for nicotine patch 21 mg per patch to use as directed. Advised to aim to quit smoking altogether. If he can go and see a doctor in [facility] for follow-up regarding his smoking cessation, see if he is ready to go lower on his nicotine patch dose. Do not smoke when using the patch. Will schedule him an appointment for the end of the month for follow-up on smoking cessation (2) Anxiety with limited-symptom attacks: Code(s): F41.8 - Other specified anxiety disorders Plan: Prescription sent for hydroxyzine HCl 10 mg per tablet to take once a day only as needed for acute anxiety attacks Medications: New hydroxyzine HCl 10 mg PO DAILY PRN 30 tabs 0RF Acute anxiety Refilled nicotine 1 patch transdermal DAILY 28 ea 0RF F17.210 - Nicotine dependence, cigarettes, uncomplicated
[2025-01-26 13:33] VITALS: BP 102/70; PULSE 106; RESP 15; TEMP 36.7; O2SAT 96; BMI 31.2
== END 2025-01-26 14:03 | disposition home or self-care (01) ==
LOC: HO.HMCC 13:04
PROVIDERS: PCP Internal Medicine; Visit Provider Internal Medicine
DX: F17.210 Nicotine dependence, cigarettes, uncomplicated (principal); F41.8 Other specified anxiety disorders

== ENCOUNTER → 2025-01-26 13:03 | Outpatient (BNVA) | payer OTHER, SELFPAY | PROVIDERS: PCP Internal Medicine; Visit Provider Internal Medicine | DX: I10 Essential (primary) hypertension (principal); F41.8 Other specified anxiety disorders; F17.210 Nicotine dependence, cigarettes, uncomplicated | CPT/HCPCS: 96127; 99212 ==

== ENCOUNTER 2025-01-30 23:44 | Emergency (ER) | payer OTHER, SELFPAY ==
--- NOTE | ~2025-01-30 | CT_ITS ---
CLINICAL HISTORY: Abdominal pain, R O appendicitis. CT abdomen and pelvis with contrast Comparison: None provided Findings: CT abdomen: Minor areas of scarring or atelectasis within the lower lobes bilaterally. 8 mm calcified granuloma within the left lower lobe. No pleural effusion or pneumothorax. Bulky anterior bridging osteophytes throughout the lower thoracic spine and upper lumbar spine. No acute fracture. No focal hepatic lesion. Main portal vein is patent. Gallbladder is contracted. No calcified gallstones. No focal splenic lesions. Pancreas and adrenal glands are unremarkable. 6 mm calculus within the lower pole of the left kidney. No hydronephrosis or perinephric stranding. There is a 6 mm cyst within the upper pole of the left kidney. Right kidney is unremarkable. Moderate ingested contents within the stomach. No dilated small bowel. Mild haziness within the central mesenteric fat with small mesenteric lymph nodes all measuring less than 7 mm in short axis. These are increased in number but not size. CT pelvis: No abnormal dilation of the appendix is seen. No hyperenhancement of the appendiceal wall. No periappendiceal inflammatory stranding. Liquid stool seen within the colon extending into the splenic flexure. Liquid stool is additionally seen within the distal sigmoid colon and rectum. No adjacent inflammatory stranding. No free fluid or free air. No bladder calculi. IMPRESSION: 1. No CT findings of appendicitis. 2. Liquid stool throughout the majority of the colon suggesting diarrheal disease. 3. Haziness within the central mesenteric fat with small central mesenteric lymph nodes is frequently seen with mild enteritis/colitis or mesenteric adenitis. This document has been electronically signed by: Jeff Hampton MD on 01/31/2025 03:37:11
[2025-01-30 23:46] VITALS: BP 140/84; PULSE 97; RESP 18; TEMP 36.6; O2SAT 96; BMI 30.7
[2025-01-31] VITALS (7 sets, daily range): BP systolic 131–157; BP diastolic 82–93; PULSE 83–99; RESP 16–18; TEMP 36.7–36.8; O2SAT 94–96
[2025-01-31 00:01] LABS: MANUAL DIFF FLAG NO
[2025-01-31 00:05] LABS: Hematocrit 44.2 % (42.0-52.0); Hemoglobin 15.4 g/dl (14.0-18.0); Imm Gran Abs Auto 0.04 X10*3/uL (0.00-0.03); Imm Gran Pct Auto 0.3 % (0.0-0.4); Lymphocytes Absolute Auto 3.5 X10*3/uL (1.2-4.9); Mean Corpuscular HGB Conc 34.8 g/dl (31.0-36.0); Mean Corpuscular Hemoglobin 31.2 pg (27.0-33.0); Mean Corpuscular Volume 89.5 fL (80.0-98.0); NRBC Abs Auto 0.000 X10*3/uL (0.0-0.012); NRBC Pct Auto 0.0 /100WBC (0.0-0.2); Platelet Count 243 X10*3/uL (160-400); Red Blood Count 4.94 X10*6/uL (4.60-5.80); White Blood Count 11.7 X10*3/uL (4.8-10.8)
--- NOTE | 2025-01-31 00:08 | ED_ITS ---
HPI - General Adult General Chief complaint: Abdominal Pain Stated complaint: diarrhea Time Seen by Provider: 01/30/25 23:56 Source: patient, family and spanish interpreter Mode of arrival: ambulatory Limitations: no limitations History of Present Illness ED Provider: DR. Giron HPI narrative: 59-year-old male well known history of acid reflux and gastritis patient is taking omeprazole presented for epigastric pain x1 day feels burning sensation in the epigastric area with some nausea but no vomiting, no recent use of antibiotic, no recent travel, no other sick contacts, no fever, no chills. Passing flatus, last bowel movement was before coming to the ED described as yellow nonbloody watery diarrhea. No history of intra-abdominal surgery. Related Data Home Medications ?Medication ?Instructions ?Recorded ?Confirmed atenolol 50 mg tablet 100 mg PO DAILY 09/16/24 metformin 1,000 mg tablet 1,000 mg PO BID 12/16/24 Previous Rx's ?Medication ?Instructions ?Recorded acetaminophen 500 mg capsule 1,000 mg (2 x 500 mg) PO Q6H PRN 06/27/23 pain #30 caps lancets 28 gauge (FreeStyle #50 ea 01/29/24 Lancets) blood sugar diagnostic (FreeStyle #50 ea 07/02/24 Lite Strips) dulaglutide 3 mg/0.5 mL 3 mg (0.5 mL) subcut QWEEK 2 8 days 08/19/24 subcutaneous pen injector #2 mL (Trulicity) empagliflozin 10 mg tablet 10 mg PO DAILY 30 days #30 tabs 08/19/24 (Jardiance) insulin glargine 100 unit/mL (3 10 unit (0.1 mL) subcu t QPM 30 08/19/24 mL) subcutaneous pen (Lantus days #3 mL Solostar U-100 Insulin) pen needle, diabetic 32 gauge x #50 ea 08/19/24 clotrimazole 1 % topical cream 1 appl topical BID 10 d ays #30 08/22/24 grams mupirocin 2 % topical ointment 1 appl topical BID 7 da ys #15 grams 08/22/24 glucose 4 gram chewable tablet 16 g (4 x 4 gram) PO Q1 5M PRN 09/16/24 (Dex4 Glucose) hypoglycemia 30 days #30 tab s losartan 100 mg tablet 100 mg PO DAILY #90 tabs aspirin 81 mg chewable tablet 1 tab PO DAILY #90 tabs 09/17/24 flash glucose sensor (FreeStyle #28 ea 09/30/24 Rakan 2 Sensor kit) blood-glucose sensor (FreeStyle #2 ea 12/04/24 Rakan 3 Plus Sensor device) atorvastatin 80 mg tablet 80 mg PO BEDTIME 90 days #90 tabs 12/12/24 cane #1 ea 12/16/24 omeprazole 20 mg capsule,delayed 20 mg PO DAILY #90 ca ps 12/31/24 release gabapentin 800 mg tablet 800 mg PO TID #90 tabs 01/26 hydroxyzine HCl 10 mg tablet 10 mg PO DAILY PRN Acute anxiety 01/26/25 #30 tabs nicotine 21 mg/24 hr daily 1 patch transdermal DAILY # 28 ea 01/26/25 transdermal patch acetaminophen 500 mg capsule 1,000 mg (2 x 500 mg) PO Q8H PRN 01/31/25 fever or pain #14 caps loperamide 2 mg tablet 2 mg PO Q4H PRN diarrhea #14 tabs 01/31/25 morphine 15 mg immediate release 15 mg PO Q6H PRN pain #8 tabs 01/31/25 tablet Allergies Allergy/AdvReac Type Severity Reaction Status Date / Time No Known Allergies Allergy Verified 01/30/25 23:51 Review of Systems 2 Review of Systems: All other systems are reviewed and are negative Constitutional: Reports as per HPI and Reports no additional constitutional complaints Eyes: Reports as per HPI and Reports no additional eye complaints Reports system reviewed and no additional complaints, except as documented Cardiovascular: Reports as per HPI and Reports no additional cardiovascular complaints Respiratory: Reports as per HPI and Reports no additional respiratory complaints Gastrointestinal: Reports as per HPI and Reports no additional gastrointestinal complaints Genitourinary: Reports no additional female genitourinary complaints Musculoskeletal: Reports no additional musculoskeletal complaints Skin/Breast: Reports system reviewed and no additional complaints, except as docu Psychiatric: Reports no additional psychiatric complaints Endocrine: Reports no additional endocrine complaints Hematologic/Lymphatic: Reports no additional hematologic/lymphatic complaints Allergic/Immunologic: Reports no additional allergic/immunologic complaints Reports system reviewed and no additional complaints, except as documented and Reports Abnormal speech present [facility] Past Medical History Medical History Heavy cigarette smoker (20-39 per day) PVD (peripheral vascular disease) Hypogonadism in male Cigarette smoker Diabetes mellitus with diabetic neuropathy Heartburn Vitamin D deficiency HLD (hyperlipidemia) HTN (hypertension) Surgical History Hx of eye surgery Hx of colonoscopy Family History Family History Father Diabetes mellitus Mother HTN (hypertension) Social History Social History Household Members: Children Housing: Apartment Alcohol intake: current Alcohol intake frequency: holidays/special occasions only Patient Tobacco Use Status: Current someday Tobacco user (Had 3 cigarettes in the past month) Tobacco use type: Cigarette Cigarette Packs Per Day: 1 e-Cigarette/Vaping Use: Never Used Advance Directives: Yes Advance Directives on File: Yes Advance Directives Date on File: 09/16/24 Current occupational status: unemployed Cognitive needs: No Hearing needs: No Vision needs: No Physical Exam ED Vital Signs: Vital Signs - 24 hr 01/30/25 23:46 01/31/25 03:00 01/31/25 03:28 Temperature 97.9 F 98.2 F Pulse Rate 97 84 Respiratory Rate 18 16 17 Blood Pressure 140/84 H 157/86 H Pulse Oximetry 96 94 Oxygen Delivery Method Room Air Room Air 01/31/25 03:29 01/31/25 03:30 01/31/25 03:30 Temperature Pulse Rate 85 92 83 Respiratory Rate 18 Blood Pressure 136/82 141/88 H Pulse Oximetry Oxygen Delivery Method 01/31/25 03:32 01/31/25 05:34 01/31/25 05:40 Temperature 98.1 F Pulse Rate 99 83 83 Respiratory Rate 16 16 Blood Pressure 131/88 142/93 H 142/93 H Pulse Oximetry 96 96 Oxygen Delivery Method Room Air Room Air BMI result Body Mass Index 30.7 Vital signs have been reviewed and appear to be correct. Blood pressure elevated. Heart rate normal. Respiratory rate normal. Temperature normal. Oxygen saturation normal. Appearance: Alert. Oriented X3. No acute distress. Head: Normal external exam. Normocephalic. Atraumatic. No Hall signs noted. No raccoon eyes noted Eyes: PERRLA. EOMI. Conjunctiva and sclera normal. Eyelids normal. ENT: TM's Normal. Pharynx normal. Uvula midline. Moist mucous membranes. No trismus noted. No drooling noted. No muffled voice noted. Neck: Normal inspection. Neck supple. FROM. No adenopathy. Thyroid Normal. No meningeal signs. No neck mass noted. CVS: Normal heart rate and rhythm. Heart sound normal. No murmurs noted. Pulses normal throughout. Respiratory: No respiratory distress. Painless inspiration. Breath sounds normal. No wheezes/rales/rhonchi noted. Chest nontender. No accessory muscle usage noted or decreased air movement noted. Abdomen: Soft, epigastric tenderness, no rebound tenderness, no guarding, Bowel sounds normal in all 4 quadrants. No distention noted. No organomegaly noted. No visible injury noted. Back: No CVA tenderness. Full range of motion noted. Skin: Skin warm and dry. Normal skin color. Normal skin turgor. No rashes/lesions/lacerations noted. Extremities: No lower extremity edema. Extremities exhibit normal range of motion. Extremities nontender. Neuro: Oriented X 3. Cranial nerve exam: II-XII are grossly intact No motor deficit. No sensory deficit. Reflexes normal. Course Reevaluation(s) Reevaluation #1: Epigastric pain with known history of acid reflux patient is already on omeprazole, feels better after was given Maalox and sucralfate with Imodium was instructed to drink plenty of fluids. Cardiac workup is unremarkable. Await for CT abdomen and pelvis signed out to Dr. Ríos patient can be discharged home if CT abdomen pelvis is negative. Time: 01:44 Reevaluation #2: [place]: The patient was signed out to me at change of shift pending the results of a CT scan of the abdomen and pelvis. CT scan suggested that he has a lot of liquid stool although there were no definite significant inflammatory changes. I went to see the patient. He was complaining of pain across his lower abdomen. He has been sick for a little over 24 hours. He has had no fever. No vomiting. His white count is 11.7. His differential is normal. Given his essentially unremarkable CBC and given the findings on CAT scan I think that this is probably not a bacterial cause of diarrhea. I think the patient may be managed symptomatically. Patient was able to give a stool sample that we will sent for C diff testing and also for a GI panel. In the meantime the patient will be discharged with a prescription for loperamide and a prescription for morphine tablets for his pain, also a prescription for acetaminophen. He should drink lot of fluids. He should follow up with his PCP. He should return if worse. Time: 05:19 Medications Administered Discontinued Medications Generic Name Dose Route Start Last Admin Trade Name Aniya PRN Reason Stop Dose Admin Al Hydroxide/Mg Hydroxide 30 ml 01/31/25 00:05 01/31/25 00:15 Magnesium Hydrox/Alum Hydrox 30 Ml Oral.Susp PO 01/31/25 00:06 30 ml ONCE ONE Administration Famotidine 20 mg 01/31/25 00:05 01/31/25 00:28 Famotidine/Pf 20 Mg/2 Ml Vial IVPUSH 01/31/25 00:06 20 mg ONCE ONE Administration Lactated Ringer's 1,000 mls @ 999 mls/hr 01/30/25 23:45 01/31/25 01:58 Lr IV 01/31/25 00:45 Infused .Q1H1M MALACHI Infusion Iohexol 85 ml 01/31/25 02:52 01/31/25 02:52 Iohexol 350 Mg/Ml 100 Ml Infus..Btl IV 01/31/25 02:53 85 ml ONCE ONE Administration Loperamide HCl 2 mg 01/31/25 00:12 01/31/25 00:28 Loperamide Hcl 2 Mg Capsule PO 01/31/25 00:13 2 mg ONCE ONE Administration Morphine Sulfate 4 mg 01/31/25 02:55 01/31/25 03:00 Morphine Sulfate 4 Mg/Ml Cartridge IVPUSH 01/31/25 02:56 4 mg ONCE ONE Administration Protocol Morphine Sulfate 15 mg 01/31/25 05:11 01/31/25 05:28 Morphine Sulfate Immed Release 15 Mg Tablet PO 01/31/25 05:12 15 mg ONCE ONE Administration Sucralfate 1 gm 01/31/25 00:05 01/31/25 00:15 Sucralfate Oral Suspension 1 Gm/10 Ml Oral.Susp PO 01/31/25 00:06 1 gm ONCE ONE Administration Medical Decision Making Differential Diagnosis Differential Diagnoses: The differential diagnosis associated with the presentation includes (Acute appendicitis, acute pancreatitis, acute gastritis, gastroenteritis, food poisoning, acute colitis, acute diverticulitis, ACS, dehydration, electrolyte derangement, C diff colitis) Admission/Observation Consideration of admission/observation: Escalation of care including admission/observation considered Lab Data MDM Lab Attestation statement: I reviewed the patient's lab results. 01/30/25 23:56 01/30/25 23:56 Labs: Lab Results 01/30/25 01/31/25 Range/Units 23:56 05:06 WBC 11.7 H (4.8-10.8) X10*3/uL RBC 4.94 (4.60-5.80) X10*6/uL Hgb 15.4 (14.0-18.0) g/dl Hct 44.2 (42.0-52.0) % MCV 89.5 (80.0-98.0) fL MCH 31.2 (27.0-33.0) pg MCHC 34.8 (31.0-36.0) g/dl RDW 12.6 (11.0-16.0) % Plt Count 243 (160-400) X10*3/uL MPV 10.9 (9.4-12.4) fL Immature Gran % (Auto) 0.3 (0.0-0.4) % Neut % (Auto) 59.1 (45-73) % Lymph % (Auto) 30.1 (20-40) % Gillespie % (Auto) 6.8 (2-11) % Eos % (Auto) 3.4 (0-4) % Baso % (Auto) 0.3 (0-2) % Lymph # (Auto) 3.5 (1.2-4.9) X10*3/uL Gillespie # (Auto) 0.8 (0.1-1.2) X10*3/uL Eos # (Auto) 0.4 (0.0-0.4) X10*3/uL Baso # (Auto) 0.0 (0.0-0.2) X10*3/uL Abs Immat Gran (auto) 0.04 H (0.00-0.03) X10*3/uL Absolute Neuts (auto) 6.9 (2.0-8.3) x10*3/uL Absolute Nucleated RBC 0.000 (0.0-0.012) X10*3/uL Nucleated RBC % (auto) 0.0 (0.0-0.2) /100WBC Sodium 141 (135-145) mmol/L Potassium 4.0 (3.3-5.1) mmol/L Chloride 111 H (96-108) mmol/L Carbon Dioxide 21 L (22-29) mmol/L Anion Gap 13 (12-20) BUN 15 (9-16) mg/dL Creatinine 0.92 (0.5-1.4) mg/dL Estim Creat Clear Calc 93.1 Estimated GFR > 60 Random Glucose 126 H (60-115) mg/dL Calcium 10.2 D (8.4-10.2) mg/dL Total Bilirubin 0.2 (0.0-1.0) mg/dL AST 23 (5-37) U/L ALT 38 (0-40) U/L Alkaline Phosphatase 107 (39-117) U/L Troponin I High Sens < 2.7 (<3.5-35.0) ng/L Total Protein 7.3 (6.5-8.0) g/dL Albumin 5.1 H (3.5-5.0) g/dL Lipase 31 (8-78) U/L Stl C. cayetanensis PCR Not Detected (Not Detect.) Stool Rotavirus A PCR Not Detected (Not Detect.) Stl Adenov F 40/41 PCR Not Detected (Not Detect.) Stool Astrovirus (PCR) Not Detected (Not Detect.) Stool Campylobacter PCR Not Detected (Not Detect.) Stool Cryptosporidium PCR Not Detected (Not Detect.) Stl Sh Tox Pr E STEC PCR Not Detected (Not Detect.) Stool E coli O157 PCR Not applicable (Not Detect.) Stl Enterotoxigenic E PCR Not Detected (Not Detect.) Stool EPEC (PCR) Not Detected (Not Detect.) Stool EAEC (PCR) Not Detected (Not Detect.) Stl E. histolytica PCR Not Detected (Not Detect.) Stool Giardia Lamblia PCR Not Detected (Not Detect.) Stl P. shigelloides PCR Not Detected (Not Detect.) Stool Salmonella PCR Not Detected (Not Detect.) Stool Sapovirus (PCR) Not Detected (Not Detect.) Stl Shigella/EIEC PCR Not Detected (Not Detect.) St Y.enterocolitica PCR Not Detected (Not Detect.) Stool Vibrio (PCR) Not Detected (Not Detect.) Stl Vibrio cholerae PCR Not Detected (Not Detect.) Stl Norovirus GI/GII PCR Not Detected (Not Detect.) C. difficile Tox B Gene NEGATIVE (Negative) Independent Interpretation I performed an independent interpretation of an: CT Scan (Abdomen and pelvis: No acute intra-abdominal pathology.) Radiology Impression Discussion of test interpretation with radiology: I have reviewed the radiologist's reading. Discharge Plan Discharge Clinical Impression: Diarrhea, Lower abdominal pain Patient Disposition: Home, Self-Care Instructions: Acute Diarrhea (ED) Additional Instructions: I think that you probably have some kind of a stomach virus causing your pain and diarrhea. My expectation is that this will get better on its own over the next couple of days. I have sent prescriptions to your pharmacy for acetaminophen which you may use for pain, and also for morphine which you may also use if necessary. Also I have sent a prescription for loperamide. This is a medication that you may take up to 4 times per day for loose stools. Loperamide and should help firm up your stools. Please follow up soon with your regular doctor. Return to the emergency room if you are significantly worse. Prescriptions: New loperamide 2 mg tablet 2 mg PO Q4H PRN (Reason: diarrhea) Qty: 14 0RF Rx Instructions: administer after each loose stool until symptoms controlled; do not exceed 8 mg per 24 hrs morphine 15 mg tablet 15 mg PO Q6H PRN (Reason: pain) Qty: 8 0RF Rx Instructions: Partial Fill upon patient request. acetaminophen 500 mg capsule 1,000 mg PO Q8H PRN (Reason: fever or pain) Qty: 14 0RF No Action (DME) lancets [FreeStyle Lancets] 28 gauge misc See Rx Instructions .Route Qty: 50 4RF Rx Instructions: As directed test once a day (DME) FreeStyle Lite Strips Strip See Rx Instructions .Route Qty: 50 4RF Rx Instructions: As directed test once a day aspirin 81 mg tablet,chewable 1 tab PO DAILY Qty: 90 1RF (DME) FreeStyle Rakan 2 Sensor Kit See Rx Instructions .ROUTE .MEDSUPPLY Qty: 28 6RF Rx Instructions: As directed every 14 days (DME) FreeStyle Rakan 3 Plus Sensor Device See Rx Instructions .ROUTE .MEDSUPPLY Qty: 2 11RF Rx Instructions: Apply 1 new sensor every 15 days as directed to monitor blood glucose continuously. atorvastatin 80 mg tablet 80 mg PO BEDTIME 90 Days Qty: 90 1RF gabapentin 800 mg tablet 800 mg PO TID Qty: 90 1RF mupirocin 2 % ointment 1 appl topical BID 7 Days Qty: 15 0RF clotrimazole 1 % cream 1 appl topical BID 10 Days Qty: 30 0RF acetaminophen 500 mg capsule 1,000 mg PO Q6H PRN (Reason: pain) Qty: 30 0RF atenolol 50 mg tablet 100 mg PO DAILY glucose [Dex4 Glucose] 4 gram tablet,chewable 16 g PO Q15M MDD 16 tablets PRN (Reason: hypoglycemia) 30 Days Qty: 30 3RF Rx Instructions: every 15 minutes until symptoms of low blood sugar are controlled (DME) cane Device See Rx Instructions .Route Qty: 1 0RF Rx Instructions: As directed metformin 1,000 mg tablet 1,000 mg PO BID omeprazole 20 mg capsule,delayed release(DR/EC) 20 mg PO DAILY Qty: 90 0RF Rx Instructions: Take at least half an hour before eating nicotine 21 mg/24 hr patch 24 hour 1 patch transdermal DAILY Qty: 28 0RF hydroxyzine HCl 10 mg tablet 10 mg PO DAILY PRN (Reason: Acute anxiety) Qty: 30 0RF losartan 100 mg tablet 100 mg PO DAILY Qty: 90 1RF Jardiance 10 mg tablet 10 mg PO DAILY 30 Days Qty: 30 11RF Trulicity 3 mg/0.5 mL pen injector 3 mg subcut QWEEK 28 Days Qty: 2 11RF insulin glargine [Lantus Solostar U-100 Insulin] 100 unit/mL (3 mL) insulin pen 10 unit subcut QPM 30 Days Qty: 3 6RF (DME) pen needle, diabetic 32 gauge x 5/32 needle See Rx Instructions .ROUTE .MEDSUPPLY Qty: 50 6RF Rx Instructions: As directed daily Referrals: Heather Garibay MD [Primary Care Provider, Internal Medicine] Interventions: ED Discharge Assessment Last Done: 01/31/25 05:40 Discharge Date/Time: 01/31/25 05:41 Print Language: Welsh
[2025-01-31] MEDS: Magnesium Hydrox/Alum Hydrox 30 ML ORAL.SUSP PO (00:15)
[2025-01-31] MEDS: Sucralfate Oral Suspension 1 GM/10 ML ORAL.SUSP PO (00:15)
[2025-01-31 00:17] LABS: Alanine Aminotransferase 38 U/L (0-40); Albumin Level 5.1 g/dL (3.5-5.0); Alkaline Phosphatase 107 U/L (39-117); Anion Gap 13 (12-20); Aspartate Amino Transferase 23 U/L (5-37); Blood Urea Nitrogen 15 mg/dL (9-16); Calcium 10.2 mg/dL (8.4-10.2); Carbon Dioxide 21 mmol/L (22-29); Chloride 111 mmol/L (96-108); Creatinine Clr Calc Pharmacy 93.1; Estimated Glomerular Filt Rate > 60; Lipase 31 U/L (8-78); Potassium 4.0 mmol/L (3.3-5.1); Sodium 141 mmol/L (135-145); Total Protein 7.3 g/dL (6.5-8.0)
--- NOTE | 2025-01-31 00:18 | ECG_ITS ---
Test Reason : EPIGSTRIC PAIN Blood Pressure : */* mmHG Vent. Rate : 85 BPM Atrial Rate : 85 BPM P-R Int : 156 ms QRS Dur : 92 ms QT Int : 342 ms P-R-T Axes : 15 8 -5 degrees QTcB Int : 406 ms Normal sinus rhythm Normal ECG No previous ECGs available Referred By: Teresita Giron Electronically Signed By: VERO SINGLETON MD
[2025-01-31] MEDS: Lactated Ringers 1,000 ML 999 ML IV (00:28)
[2025-01-31 00:35] LABS: Troponin-I High Sensitivity < 2.7 ng/L (<3.5-35.0)
[2025-01-31] MEDS: iohexoL 350 MG/ML 100 ML INFUS..BTL 85 ML IV (02:52)
[2025-01-31] MEDS: Morphine Sulfate Immed Release 15 MG TABLET PO (05:28)
[2025-01-31 06:00] LABS: CDiff Gene PCR NEGATIVE (Negative)
[2025-01-31 10:01] LABS: E. coli EAEC Not Detected (Not Detect.); E. coli EPEC Not Detected (Not Detect.); E. coli ETEC Not Detected (Not Detect.); E. coli STEC Not Detected (Not Detect.); Shigella sp./EIEC Not Detected (Not Detect.)
== END 2025-01-31 05:41 | disposition home or self-care (01) ==
PROVIDERS: Emergency Medicine; Emergency Provider Emergency Medicine; PCP Internal Medicine
DX: R10.13 Epigastric pain (principal); R11.0 Nausea; E11.9 Type 2 diabetes mellitus without complications; R10.816 Epigastric abdominal tenderness; R19.7 Diarrhea, unspecified; F17.210 Nicotine dependence, cigarettes, uncomplicated; Z79.4 Long term (current) use of insulin; Z79.899 Other long term (current) drug therapy
CPT/HCPCS: 36415; 74177; 80053; 83690; 84484; 85025; 87493; 87507; 93005; 96361; 96374; 96375; 99284; 99285; J1308; J2270; J7120; Q9967

== ENCOUNTER → 2025-01-31 00:05 | Outpatient (BNV) | payer OTHER, SELFPAY | PROVIDERS: Emergency Provider Emergency Medicine; PCP Internal Medicine; Visit Provider Radiology Diagnostic Radiology | DX: R10.30 Lower abdominal pain, unspecified (principal) | CPT/HCPCS: 74177 ==

== ENCOUNTER → 2025-01-31 00:18 | Outpatient (BNV) | payer OTHER, SELFPAY | PROVIDERS: Emergency Provider Emergency Medicine; PCP Internal Medicine; Visit Provider Internal Medicine Cardiovascular Disease | DX: R10.13 Epigastric pain (principal) | CPT/HCPCS: 93010 ==